=== PATIENT | male | born 1960 | race Caucasian/White ===

== ENCOUNTER 2023-12-18 10:39 | Outpatient (RCR) | payer MEDICARE, MEDICAID, SELFPAY | END 2024-01-13 23:59 | disposition home or self-care (01) | LOC: SCTC 10:39 | PROVIDERS: PCP Nurse Practitioner; Referring Provider Nurse Practitioner; Visit Provider Internal Medicine Hematology & Oncology | DX: C20 Malignant neoplasm of rectum (principal); C78.7 Secondary malignant neoplasm of liver and intrahepatic bile duct; C78.01 Secondary malignant neoplasm of right lung | CPT/HCPCS: 99212; G0463 ==

== ENCOUNTER → 2024-01-22 | Outpatient (CLI) | payer MEDICARE, MEDICAID, SELFPAY ==
[2024-01-22 09:25] LABS: Basophils # (Auto) 0.1 Thou/mm3 (0.0-0.2); Basophils % (Auto) 1 % (0-2.5); Eosinophils # (Auto) 0.4 Thou/mm3 (0.0-0.5); Eosinophils % (Auto) 6 % (0-10); Hematocrit 45.2 % (41.0-53.0); Hemoglobin 15.3 g/dL (13.5-16.0); Immature Granulocytes % (Auto) 0 % (0-0); Immature Granulocytes Auto 0.01 Thou/mm3 (0.00-0.00); Lymphocytes # (Auto) 1.5 Thou/mm3 (1.0-4.8); Lymphocytes % (Auto) 23 % (10-50); Mean Corpuscular HGB Conc 33.8 g/dl (31.0-37.0); Mean Corpuscular Hemoglobin 32.5 pg (25.0-35.0); Mean Corpuscular Volume 96 fL (80-100); Monocytes # (Auto) 0.6 Thou/mm3 (0.0-0.8); Monocytes % (Auto) 9 % (0-12); Neutrophils # (Auto) 3.9 Thou/mm3 (1.8-7.7); Neutrophils % (Auto) 61 % (37-80); Nucleated Red Blood Cell % 0 /100 WBC (0); Platelet Count 193 Thou/mm3 (140-440); RDW Standard Deviation 44.6 fL (35.1-43.9); Red Blood Count 4.71 Miln/mm3 (4.50-5.90); White Blood Count 6.4 Thou/mm3 (3.8-10.6)
[2024-01-22 09:40] LABS: Alanine Aminotransferase 28 U/L (10-49); Albumin, Serum 4.5 gm/dL (3.4-4.8); Alkaline Phosphatase 112 U/L (46-116); Anion Gap 5 (7-16); Aspartate Amino Transferase 20 U/L (0-34); BUN/Creatinine Ratio 13 Ratio (12-20); Bilirubin,Direct 0.4 mg/dL (0.0-0.3); Bilirubin,Total 0.8 mg/dL (0.3-1.2); Blood Urea Nitrogen 17 mg/dL (9-23); Calcium 9.4 mg/dL (8.3-10.6); Carbon Dioxide 26.1 mMol/L (20.0-31.0); Cardiac Risk Estimate 3.2 RATIO (4.0-6.7); Chloride 108 mMol/L (98-107); Cholesterol 97 mg/dL (132-200); Creatinine (Component) 1.3 mg/dL (0.6-1.3); Glucose 122 mg/dL (74-106); HDL Cholesterol 30 mg/dL (40-60); LDL Cholesterol,Calculated 52 mg/dL (0-130); Osmolality,Calculated 280 (275-295); Phosphorous 3.2 mg/dL (2.4-5.1); Potassium 4.8 mMol/L (3.4-5.1); Sodium 139 mMol/L (136-145); Total Protein 6.5 gm/dL (5.7-8.2); Triglycerides 75 mg/dL (30-150); eGFR > 60 See Note
== END | disposition home or self-care (01) ==
LOC: COPL 08:12
PROVIDERS: PCP Family Medicine; Referring Provider Specialist; Visit Provider Specialist
DX: E78.00 Pure hypercholesterolemia, unspecified (principal); I11.9 Hypertensive heart disease without heart failure
CPT/HCPCS: 36415; 80048; 80061; 80076; 84100; 85025

== ENCOUNTER → 2024-03-11 | Outpatient (CLI) | payer MEDICARE, MEDICAID, SELFPAY ==
[2024-03-11 08:48] LABS: Basophils % (Auto) 1 % (0-2.5); Eosinophils # (Auto) 0.4 Thou/mm3 (0.0-0.5); Eosinophils % (Auto) 7 % (0-10); Hematocrit 44.6 % (41.0-53.0); Hemoglobin 15.5 g/dL (13.5-16.0); Immature Granulocytes % (Auto) 0 % (0-0); Immature Granulocytes Auto 0.01 Thou/mm3 (0.00-0.00); Lymphocytes # (Auto) 1.3 Thou/mm3 (1.0-4.8); Lymphocytes % (Auto) 22 % (10-50); Mean Corpuscular HGB Conc 34.8 g/dl (31.0-37.0); Mean Corpuscular Hemoglobin 32.5 pg (25.0-35.0); Mean Corpuscular Volume 94 fL (80-100); Monocytes # (Auto) 0.5 Thou/mm3 (0.0-0.8); Monocytes % (Auto) 9 % (0-12); Neutrophils # (Auto) 3.6 Thou/mm3 (1.8-7.7); Neutrophils % (Auto) 61 % (37-80); Nucleated Red Blood Cell % 0 /100 WBC (0); Platelet Count 187 Thou/mm3 (140-440); RDW Standard Deviation 41.9 fL (35.1-43.9); Red Blood Count 4.77 Miln/mm3 (4.50-5.90); White Blood Count 5.9 Thou/mm3 (3.8-10.6)
[2024-03-11 09:11] LABS: Alanine Aminotransferase 19 U/L (10-49); Albumin, Serum 4.4 gm/dL (3.4-4.8); Albumin/Globulin Ratio 1.9 (1.2-2.2); Alkaline Phosphatase 132 U/L (46-116); Anion Gap 9 (7-16); Aspartate Amino Transferase 14 U/L (0-34); BUN/Creatinine Ratio 8 Ratio (12-20); Bilirubin,Total 1.1 mg/dL (0.3-1.2); Blood Urea Nitrogen 11 mg/dL (9-23); Calcium 9.3 mg/dL (8.3-10.6); Calcium (Corrected) 9.3 mg/dL (8.5-10.1); Carbon Dioxide 26.5 mMol/L (20.0-31.0); Chloride 106 mMol/L (98-107); Creatinine (Component) 1.3 mg/dL (0.6-1.3); Globulin 2.3 gm/dL (2.3-3.5); Glucose 127 mg/dL (74-106); Osmolality,Calculated 282 (275-295); Potassium 4.6 mMol/L (3.4-5.1); Sodium 141 mMol/L (136-145); Total Protein 6.7 gm/dL (5.7-8.2); eGFR > 60 See Note
[2024-03-11 11:25] LABS: Carcinoembryonic Antigen 21.2 ng/mL (0.0-5.0)
== END | disposition home or self-care (01) ==
PROVIDERS: Referring Provider Internal Medicine Hematology & Oncology; Visit Provider Internal Medicine Hematology & Oncology
DX: C20 Malignant neoplasm of rectum (principal)
CPT/HCPCS: 36415; 80053; 82378; 85025

== ENCOUNTER → 2024-03-15 | Outpatient (CLI) | payer MEDICARE, MEDICAID, SELFPAY ==
--- NOTE | 2024-03-15 14:00 | XR_ITS ---
Examination: CT chest with intravenous contrast CT abdomen with intravenous contrast CT pelvis with intravenous contrast 2-D coronal and sagittal reconstructions Time of exam: March 15, 2024 1455 hours Comparison November 08, 2023 INDICATIONS: Diagnosis malignant neoplasm rectum pulmonary nodular metastatic disease on CT examination 11/08/2023 CTDI: vol (mGy) : 20.64 DLP: (mGycm): 945 Technique: Multiple axial images of the chest, abdomen and pelvis with intravenous contrast, 3.0 mm slice thickness. Images obtained post intravenous injection Isovue 370 60 cc. 2-D sagittal and coronal reconstructions. Low dose protocols were performed. One or more of the following dose reduction techniques were used; automated exposure control, adjustment of the mA and/or KV according to patient size, use of iterative reconstruction technique. Findings: No thoracic aortic aneurysmal dilatation No paratracheal tracheobronchial or bronchopulmonary adenopathy bilateral pulmonary nodules again noted Enlarging metastatic pulmonary nodule left lower lobe, with spiculated margins, currently 21 mm compared to 13 mm on the prior study Enlarging right lower lobe pulmonary nodule, spiculated margins, measuring 19 mm compared to 13 mm on the prior study No definite liver lesions Spleen not enlarged Contracted gallbladder No pancreatic or adrenal mass Moderate bilateral renal parenchymal scar formation Aorta normal size No interval abdominal or pelvic lymphadenopathy No pericecal inflammatory change No prostatomegaly Contracted urinary bladder Moderate osteopenia IMPRESSION: Progression of pulmonary nodular metastatic disease
== END | disposition home or self-care (01) ==
PROVIDERS: PCP Nurse Practitioner; Referring Provider Internal Medicine Hematology & Oncology; Visit Provider Internal Medicine Hematology & Oncology
DX: C78.00 Secondary malignant neoplasm of unspecified lung (principal); C20 Malignant neoplasm of rectum
CPT/HCPCS: 71260; 74177; A4649; Q9967

== ENCOUNTER 2024-04-29 08:44 | Outpatient (RCR) | payer MEDICARE, MEDICAID, SELFPAY ==
--- NOTE | 2024-04-16 14:53 | CTCFLWUP_ITS ---
Patient: ARLEN VALDOVINOS : 1960 Page 2 of 2 FOLLOW UP NOTE DATE OF SERVICE: 04/16/2024 NAME: ARLEN VALDOVINOS ACCOUNT: [id number] : 1960 AGE: 63 INTERVAL HISTORY: Doing well. ONCOLOGY HISTORY: DIAGNOSIS: Malignant neoplasm of rectum [ICD10] C20 DATE OF DIAGNOSIS: 08/03/2017 STAGE/TNM: Stage 4 TREATMENT HISTORY: Care?Plan Start?Date Cycle Day Intent mFOLFOX-6?+?Bevacizumab?5?mg/kg 01/22/2018 1 14 Palliative FOLFIRI?+?Bevacizumab?5mg/kg 11/17/2021 2 14 Palliative Bevacizumab?5mg/kg 01/03/2022 1 28 Palliative Cetux+Irinotecan 11/28/2022 1 14 Palliative Cetux+?Irinotecan 12/08/2022 1 14 Palliative?(other) HISTORY OF PRESENT ILLNESS: Arlen Valdovinos is a 63-year-old male with history of hypertension has been having rectal bleeding for last few months. 08/03/2017: Patient had a colonoscopy which showed a rectal mass. Biopsies taken from this mass showed moderately differentiated adenocarcinoma. 09/20/2017: Patient was seen by Dr. Rui Solorzano who performed a rectosigmoidectomy and coloproctostomy. Surgical pathology specimen showed 4.1 cm moderately to poorly differentiated invasive adenocarcinoma invading through the muscularis propria into pericolonic fat. Tumor is localized to the rectum. Perineural invasion was identified. Lymphovascular invasion was negative. 1 out of 15 lymph nodes were positive for metastatic disease with large deposit measuring 8 mm in size. MMR testing showed intact proteins. His postoperative course was uneventful. 11/16/2017: Patient is in the clinic today for initial consultation. CEA 29.2. PET CT scan requested. 12/08/2017: Patient had PET CT scan done which showed a 12 mm hypermetabolic focus in the right lobe of the liver with an SUV of 4.68. 12/13/2017: CT scan of the chest abdomen and pelvis with IV contrast was obtained which showed multiple small bilateral noncalcified pulmonary nodules worrisome for pulmonary metastatic nodular disease as well as a 21 mm ringlike enhancing lesion corresponding to the hypermetabolic poor focus noted on the PET CT scan and 4 small solid right lobe liver lesions consistent with hepatic metastasis is also noted. 01/12/2018: Ultrasound-guided biopsy of the liver lesion? Arlen Valdovinos is a 63-year-old male with history of hypertension has been having rectal bleeding for last few months. 08/03/2017: Patient had a colonoscopy which showed a rectal mass. Biopsies taken from this mass showed moderately differentiated adenocarcinoma. 09/20/2017: Patient was seen by Dr. Rui Solorzano who performed a rectosigmoidectomy and coloproctostomy. Surgical pathology specimen showed 4.1 cm moderately to poorly differentiated invasive adenocarcinoma invading through the muscularis propria into pericolonic fat. Tumor is localized to the rectum. Perineural invasion was identified. Lymphovascular invasion was negative. 1 out of 15 lymph nodes were positive for metastatic disease with large deposit measuring 8 mm in size. MMR testing showed intact proteins. His postoperative course was uneventful. 11/16/2017: Patient is in the clinic today for initial consultation. CEA 29.2. PET CT scan requested. 12/08/2017: Patient had PET CT scan done which showed a 12 mm hypermetabolic focus in the right lobe of the liver with an SUV of 4.68. 12/13/2017: CT scan of the chest abdomen and pelvis with IV contrast was obtained which showed multiple small bilateral noncalcified pulmonary nodules worrisome for pulmonary metastatic nodular disease as well as a 21 mm ringlike enhancing lesion corresponding to the hypermetabolic poor focus noted on the PET CT scan and 4 small solid right lobe liver lesions consistent with hepatic metastasis is also noted. 01/12/2018: Ultrasound-guided biopsy of the liver lesion- 01/22/2018-07/16/2018: Patient received 11 doses (cycle 5-day 1) FOLFOX plus Avastin. 08/04/2018: PET CT scan-negative for metastatic disease 02/07/2018: CEA 40.9 09/04/2018 CEA 0.6 09/10/2018: Patient is started on maintenance capecitabine 2 g in the morning and 1.5 grams in the evening on days 1 through 14 followed by 7 days rest. 05/22/2019: CEA less than 0.5. 06/14/2019: PET CT scan-negative for metastatic disease. 11/09/2019: PET CT scan- 11/18/2019: CT scan of the chest, abdomen and pelvis with IV contrast- 06/17/2020: CEA 0.8. 07/08/2020: CT scan of the chest, abdomen and pelvis with IV contrast- 09/30/2020: Mr. Valdovinos had acute anterior myocardial infarction. He had stent angioplasty of LAD done. Patient stopped taking capecitabine. 01/01/2022: CT scan of the chest abdomen and pelvis with IV contrast- 04/22/2021: CT scan of the chest abdomen and pelvis with IV contrast 11/01/21: CEA 1.4 11/22/2021: CT scan of the chest abdomen and pelvis with IV contrast 12/13/2021: Patient received cycle 1 day 1 of FOLFIRI and bevacizumab. Unfortunately he had significant nausea lasting for more than 1 week. He also had palpitations. He is ICD was activated twice. 02/07/2022: Mr. Valdovinos is started on Lonsurf and bevacizumab. 11/21/2022: CT scan of the chest abdomen and pelvis with IV contrast- 11/28/2022: Lonsurf and bevacizumab discontinued due to progression. 12/08/2022: Patient received first dose of Camptosar. Unfortunately he developed severe diarrhea a few days later requiring him to be admitted to the hospital for dehydration. Patient received IV fluids as well as Lomotil during the hospital stay. 01/11/2023: Lonsurf restarted at patient's request. Mr. Valdovinos stated that he did not follow the instructions on Lonsurf prescription properly in the past. 04/11/2023: CT scan of the chest abdomen pelvis with IV contrast- 07/19/2023: CT scan of the chest abdomen and pelvis with IV contrast 01/22/2018?07/16/2018: Patient received 11 doses (cycle 5-day 1) FOLFOX plus Avastin. 08/04/2018: PET CT scan?negative for metastatic disease 02/07/2018: CEA 40.9 09/04/2018 CEA 0.6 09/10/2018: Patient is started on maintenance capecitabine 2 g in the morning and 1.5 grams in the evening on days 1 through 14 followed by 7 days rest. 05/22/2019: CEA less than 0.5. 06/14/2019: PET CT scan?negative for metastatic disease. 11/09/2019: PET CT scan? 11/18/2019: CT scan of the chest, abdomen and pelvis with IV contrast? 06/17/2020: CEA 0.8. 07/08/2020: CT scan of the chest, abdomen and pelvis with IV contrast? 09/30/2020: Mr. Valdovinos had acute anterior myocardial infarction. He had stent angioplasty of LAD done. Patient stopped taking capecitabine. 01/01/2022: CT scan of the chest abdomen and pelvis with IV contrast? 04/22/2021: CT scan of the chest abdomen and pelvis with IV contrast 11/01/21: CEA 1.4 11/22/2021: CT scan of the chest abdomen and pelvis with IV contrast 12/13/2021: Patient received cycle 1 day 1 of FOLFIRI and bevacizumab. Unfortunately he had significant nausea lasting for more than 1 week. He also had palpitations. He is ICD was activated twice. 02/07/2022: Mr. Valdovinos is started on Lonsurf and bevacizumab. 11/21/2022: CT scan of the chest abdomen and pelvis with IV contrast? 11/28/2022: Lonsurf and bevacizumab discontinued due to progression. 12/08/2022: Patient received first dose of Camptosar. Unfortunately he developed severe diarrhea a few days later requiring him to be admitted to the hospital for dehydration. Patient received IV fluids as well as Lomotil during the hospital stay. 01/11/2023: Lonsurf restarted at patient's request. Mr. Valdovinos stated that he did not follow the instructions on Lonsurf prescription properly in the past. 04/11/2023: CT scan of the chest abdomen pelvis with IV contrast? 07/19/2023: CT scan of the chest abdomen and pelvis with IV contrast OTHER MEDICAL HISTORY/CONDITIONS: FAMILY HISTORY: ?Clone Family Hx? SOCIAL HISTORY: MEDICATIONS: 1. aspirin - 81 mg 1 tab Every other day 2. atorvastatin - 80 mg 1 tab Daily 3. Brilinta - 60 mg 1 tab Twice a Day 4. carvedilol - 6.25 mg 1 tab Twice a Day 5. Entresto - 49-51 mg 1 tab Twice a Day 6. ezetimibe - 10 mg 1 tab Daily?Palabra Meds? Medications Last Reconciled by Irlanda Gonzalez MA on 04/16/2024 ALLERGIES: No Known Drug Allergies REVIEW OF SYSTEMS: A complete 14-point review of systems was performed and is negative except as noted in interval history. PHYSICAL EXAMINATION: VITAL SIGNS: Temperature?97.8, B/P?118/79, Oxygen?Saturation?97% Weight?205?lbs PAIN: 0 - No pain ECOG Performance Status: 1 - Symptomatic; ambulatory; restricted in strenuous activity GENERAL APPEARANCE: Appears well, in no apparent distress, appropriately interactive. HEENT: Normocephalic, no temporal wasting, normal conjunctiva, no scleral icterus, normal hearing, lips without lesions, neck normal range of motion. CARDIOVASCULAR: Not assessed. PULMONARY: Normal respiratory effort, no respiratory distress or use of accessory muscles, speaking in full sentences, no tachypnea. EXTREMITIES: No pedal edema or cyanosis. SKIN: Normal skin appearance. NEUROLOGIC: Alert and oriented x4. PSHYCHIATRIC: Appropriate affect, mood normal, behavior normal, intact thought and speech. 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 N-SOSA mutation positive, B-Giacomo mutation positive, PDL 1 expression negative and normal MMR protein expression by IHC Recent CT scan of the chest abdomen pelvis showed progression of his disease as documented above. The patient continues to remain asymptomatic without any cough, shortness of breath or chest pain. His cancer has progressed on Lonsurf. Lonsurf was restarted on 01/11/2023 Patient received one cycle of Camptosar. He denies any further diarrhea. He still has mild loss of taste. Mr. Valdovinos is stating now that he has missed multiple doses many times of the Lonsurf. He does not Patient had first dose of Camptosar on 12/08/2022. Mr. Valdovinos decided not to take cetuximab due to side effects. Unfortunately he developed severe diarrhea few days later. He was admitted to the hospital because of dehydration. Recent CT scan of the CAP- showed progression of his pulmonary metastatic disease. Tolerating Lonsurf and bevacizumab well without any significant side effects. Unable to tolerate FOLFIRI plus bevacizumab. (12/13/2021) which caused significant nausea, palpitations. It also caused the ICD to be activated twice. He had pacemaker/defibrillator placed January 11, 2021 the patient had acute myocardial infarction as described above requiring to have stent angioplasty of LAD on 09/30/2020. He stopped taking capecitabine after the MT. . He is concerned with his heart condition also. Currently he is being followed by Dr. Coughlin of [place]. I will try to get notes from Dr. Coughlin. -CT scan shows progression in the size of lung nodules -Patient do not want chemotherapy -Will offer radiation therapy-SBRT to the lung nodules Referral placed to radiation oncology Continue to follow with a CBC CMP CEA CBC CMP CEA RETURN TO CLINIC: I will see him back in the clinic in 2 months. BILLING AND COMPLIANCE: I reviewed external records from providers outside my specialty as summarized above. I spent a total of 50 minutes on this patient?s care on the day of their visit excluding time spent related to any billed procedures. This time includes time spent with the patient as well as time spent documenting in the medical record, reviewing patients records and tests, obtaining history, placing orders, communicating with other healthcare professionals, counseling the patient, family or caregiver, and/or care coordination for the diagnoses above. Electronically Signed by: Enzo Nowak MD T: 2:51 PM CC: Rui?Rashad? PCP: Rosa Isela Randolph V Referring: Rosa Isela Randolph V This document was completed utilizing speech recognition software. Grammatical errors, random word insertions, pronoun errors, and incomplete sentences are an occasional consequence of this system due to software limitations, ambient noise, and hardware issues. Any formal questions or concerns about the content, text or information contained within the body of this dictation should be directly addressed to the provider for clarification.
== END 2024-05-13 23:59 | disposition home or self-care (01) ==
LOC: SCTC 08:44
PROVIDERS: PCP Nurse Practitioner; Referring Provider Nurse Practitioner; Visit Provider Radiology Therapeutic Radiology
DX: C20 Malignant neoplasm of rectum (principal); C78.7 Secondary malignant neoplasm of liver and intrahepatic bile duct; C78.01 Secondary malignant neoplasm of right lung; C78.02 Secondary malignant neoplasm of left lung
CPT/HCPCS: 77014; 77290; 77300; 77301; 77334; 77338; 99212; 99213; G0463

== ENCOUNTER → 2024-05-01 | Outpatient (CLI) | payer MEDICARE, MEDICAID, SELFPAY ==
--- NOTE | 2024-05-01 13:30 | ECHO_ITS ---
Transthoracic Echo Report Ht (in): 67 Wt (lb): 205 Exam Location: Echo Lab Status: Preadmit Laundry Agent: MARCOS Webber^^^^ Indications: Procedure Performed: BP: 124 / 74 HR: 98 Rhythm: Other Technical Quality: Fair MEASUREMENTS (Male / Female) Normal Values 2D ECHO LV Diastolic Diameter PLAX 3.9 cm 4.2 - 5.9 / 3.9 - 5.3 cm LV Systolic Diameter PLAX 3.1 cm IVS Diastolic Thickness 1.3 cm 0.6 - 1.0 / 0.6 - 0.9 cm LVPW Diastolic Thickness 0.9 cm 0.6 - 1.0 / 0.6 - 0.9 cm LV Relative Wall Thickness 0.6 LVOT Diameter 1.6 cm Aortic Root Diameter 3.3 cm LA Systolic Diameter LX 2.9 cm 3.0 - 4.0 / 2.7 - 3.8 cm LV Ejection Fraction MOD BP 47.7 % >= 55 % LV Cardiac Index MOD BP 2091.0 cm?/min?m? LV Ejection Fraction MOD 4C 46.4 % LV Cardiac Index MOD 4C 2671.4 cm?/min?m? LV Ejection Fraction 4C AL 48.8 % LV Cardiac Index 4C AL 2912.1 cm?/min?m? LV Ejection Fraction MOD 2C 52.2 % LV Cardiac Index MOD 2C 1750.2 cm?/min?m? LV Ejection Fraction 2C AL 53.8 % LV Cardiac Index 2C AL 1809.5 cm?/min?m? LA Volume Index 15.1 cm?/m? 16 - 28 cm?/m? Ascending Aorta Diameter 3.5 cm DOPPLER AV Peak Velocity 124.5 cm/s AV Peak Gradient 6.2 mmHg AV Mean Gradient 5.0 mmHg AV Velocity Time Integral 31.9 cm AI Peak Velocity 236.0 cm/s AI Peak Gradient 22.3 mmHg AI Pressure Half Time 334.0 ms LVOT Peak Velocity 129.0 cm/s LVOT Peak Gradient 6.7 mmHg LVOT Velocity Time Integral 27.2 cm LVOT Cardiac Index 2518.9 cm?/min?m? AV Area Cont Eq vti 1.7 cm? AV Area Cont Eq pk 2.1 cm? MV Area PHT 3.5 cm? Mitral E Point Velocity 61.4 cm/s Mitral A Point Velocity 84.6 cm/s Mitral E to A Ratio 0.7 LV E' Lateral Velocity 6.9 cm/s Mitral E to LV E' Lateral Ratio 8.9 LV E' Septal Velocity 7.3 cm/s Mitral E to LV E' Septal Ratio 8.4 PV Peak Velocity 88.9 cm/s PV Peak Gradient 3.2 mmHg RVOT Peak Velocity 60.6 cm/s FINDINGS Left Ventricle The left ventricular ejection fraction is mildly decreased, estimated at 45- 50%. There is grade I diastolic dysfunction of the left ventricle (impaired relaxation pattern). Right Ventricle The right ventricle is normal in size and systolic function. The estimated right ventricular systolic pressure, 20 mmHg. Left Atrium The left atrium is normal by two-dimensional, color flow and Doppler imaging with no structural abnormalities, no thrombus formation present. Right Atrium The right atrium is normal by two-dimensional imaging, color flow and Doppler imaging with no structural abnormalities, no thrombus formation present. Atrial Septum The interatrial septum appears normal with no evidence of a shunt. Aorta The aorta is normal by two-dimensional, color flow and Doppler interrogation. Mitral Valve Trace to mild mitral regurgitation. Mild mitral annular calcification. Aortic Valve Findings consistent with vegetation on the aortic valve. Trace to mild aortic valve regurgitation. Tricuspid Valve There is trace tricuspid valve regurgitation. Pulmonic Valve The pulmonic valve is not well visualized. There is no significant pulmonic valve regurgitation. Vessels The pulmonary artery appears normal. The inferior vena cava pulmonary and hepatic veins appear normal. Pericardium The pericardium is normal by two-dimensional imaging. There is no significant pericardial effusion. CONCLUSIONS Indication: Malignancy/neoplasm Normal LV size with mildly reduced LV systolic function with an EF of around 45-50 %. Diastolic dysfunction stage I. Normal RV size and function. Normal RV size and function. Estimated RVSP normal. Trace TR Mild MAC with mild MR. Mild aortic valve sclerosis without stenosis. No evidence of any pericardial effusion Graham Reavesumanuma (Electronically Signed) Final Date: 02 May 2024 00:44
== END | disposition home or self-care (01) ==
LOC: SDIM 13:02
PROVIDERS: Referring Provider Internal Medicine Hematology & Oncology; Visit Provider Internal Medicine Hematology & Oncology
DX: I08.3 Combined rheumatic disorders of mitral, aortic and tricuspid valves (principal); I50.30 Unspecified diastolic (congestive) heart failure; C20 Malignant neoplasm of rectum
CPT/HCPCS: 93306

== ENCOUNTER 2024-06-11 13:31 | Outpatient (RCR) | payer MEDICARE, MEDICAID, SELFPAY ==
--- NOTE | 2024-05-15 06:59 | CTCSNOTE_ITS ---
[facility] [address] [place], [place] [address] Simple Simulation Note Date: 05/14/2024 MR#: [id number] Name: ARLEN VALDOVINOS : 1960 Port was taken and the field size location and blocks were checked. ( (B) The following changes were made as noted. ITV was enlarged sup and inf to accommodate the moving target. Electronically signed by: Varinder Dixon MD, LIONELR 05/15/2024 6:57 AM
== END 2024-06-12 23:59 | disposition home or self-care (01) ==
LOC: SCTC 13:31
PROVIDERS: PCP Nurse Practitioner; Referring Provider Radiology Therapeutic Radiology; Visit Provider Radiology Therapeutic Radiology
DX: Z51.0 Encounter for antineoplastic radiation therapy (principal); C20 Malignant neoplasm of rectum; C78.7 Secondary malignant neoplasm of liver and intrahepatic bile duct; C78.02 Secondary malignant neoplasm of left lung; C78.01 Secondary malignant neoplasm of right lung; Z90.49 Acquired absence of other specified parts of digestive tract
CPT/HCPCS: 77373

== ENCOUNTER 2024-07-10 09:16 | Outpatient (RCR) | payer MEDICARE, MEDICAID, SELFPAY ==
--- NOTE | 2024-06-17 14:37 | CTCTRTNOTE_ITS ---
[facility] [address] [place], [place] [address] Weekly Management Date: 06/17/2024 ?? Name: ARLEN VALDOVINOS : 1960 A. Patient is currently at 3420 cGy. To left lower lobe. Already completed 5123 to the right lower lobe. Appears to have no significant side effects. B. Resume radiation therapy. Completes XRT next week. Electronically signed by: Varinder Dixon M.D. 06/17/2024 2:34 PM
[2024-06-17 15:59] LABS: Basophils % (Auto) 1 % (0-2.5); Eosinophils # (Auto) 0.3 Thou/mm3 (0.0-0.5); Eosinophils % (Auto) 6 % (0-10); Hematocrit 38.1 % (41.0-53.0); Immature Granulocytes % (Auto) 0 % (0-0); Immature Granulocytes Auto 0.01 Thou/mm3 (0.00-0.00); Lymphocytes # (Auto) 0.8 Thou/mm3 (1.0-4.8); Lymphocytes % (Auto) 15 % (10-50); Mean Corpuscular HGB Conc 36.7 g/dl (31.0-37.0); Mean Corpuscular Hemoglobin 32.9 pg (25.0-35.0); Mean Corpuscular Volume 89 fL (80-100); Monocytes # (Auto) 0.5 Thou/mm3 (0.0-0.8); Monocytes % (Auto) 10 % (0-12); Neutrophils # (Auto) 3.4 Thou/mm3 (1.8-7.7); Neutrophils % (Auto) 67 % (37-80); Nucleated Red Blood Cell % 0 /100 WBC (0); Platelet Count 172 Thou/mm3 (140-440); RDW Standard Deviation 41.8 fL (35.1-43.9); Red Blood Count 4.26 Miln/mm3 (4.50-5.90); White Blood Count 5.1 Thou/mm3 (3.8-10.6)
[2024-06-17 16:19] LABS: Alanine Aminotransferase 17 U/L (10-49); Albumin/Globulin Ratio 1.7 (1.2-2.2); Alkaline Phosphatase 112 U/L (46-116); Anion Gap 10 (7-16); Aspartate Amino Transferase 20 U/L (0-34); BUN/Creatinine Ratio 14 Ratio (12-20); Bilirubin,Total 1.6 mg/dL (0.3-1.2); Blood Urea Nitrogen 14 mg/dL (9-23); Calcium 8.3 mg/dL (8.3-10.6); Calcium (Corrected) 8.3 mg/dL (8.5-10.1); Carbon Dioxide 24.4 mMol/L (20.0-31.0); Carcinoembryonic Antigen 55.9 ng/mL (0.0-5.0); Chloride 107 mMol/L (98-107); Globulin 2.4 gm/dL (2.3-3.5); Glucose 89 mg/dL (74-106); Osmolality,Calculated 280 (275-295); Potassium 3.7 mMol/L (3.4-5.1); Sodium 141 mMol/L (136-145); Total Protein 6.4 gm/dL (5.7-8.2); eGFR > 60 See Note
--- NOTE | 2024-06-19 13:06 | CTCFLWUP_ITS ---
Patient: ARLEN VALDOVINOS : 1960 Page 2 of 2 FOLLOW UP NOTE DATE OF SERVICE: 06/18/2024 NAME: ARLEN VALDOVINOS ACCOUNT: [id number] : 1960 AGE: 63 INTERVAL HISTORY: Arlen Valdovinos, a patient with metastatic lung cancer, presented with concern about progression of multiple pulmonary nodules and decreased heart function (45-50%). History includes a Widowmaker heart attack following chemotherapy with capecitabine. CT scan confirmed nodule progression with CEA rising from 21 to 55 since February. Patient has completed SBRT radiation on right lung nodules and two on the left, with one treatment remaining. Plan includes completing radiation, ordering Jose blood test and next-generation sequencing, referral to [facility] for second opinion, and considering immunotherapy pending further evaluation. Chief Complaint Progression of multiple pulmonary nodules, decreased heart function (45-50%), concern about cancer growth History of Present Illness Arlen Valdovinos is a patient with a history of lung cancer who presents for follow-up. The patient has been undergoing radiation therapy for multiple pulmonary nodules. The patient reports completing radiation therapy on the right side of the lungs and has two treatments completed on the left side, with one more treatment remaining. The radiation therapy is being administered over three fractions, with each treatment taking place over a two-week period. Arlen expresses concern about their heart function, which has decreased to 45-50 percent. Arlen's cancer markers have shown an increase, with CEA rising from 21 in February to 55 currently, indicating potential disease progression. The patient previously experienced a severe cardiac event, described as a Widowmaker heart attack, following chemotherapy treatment. This has made Arlen apprehensive about further chemotherapy, stating, I don't wanna go through no heart attack again. The patient reports adherence to the current radiation therapy regimen but expresses concerns about the effectiveness of radiation alone in treating their cancer. Arlen is open to exploring alternative treatment options, including the possibility of immunotherapy, but is worried about potential cardiac side effects. Medical History - Multiple pulmonary nodules, with progression noted on recent CT scan - Heart function decreased to 45-50% - History of myocardial infarction (referred to as Widowmaker ) - History of cardiac arrest requiring resuscitation twice during the myocardial infarction event Surgical History - Myocardial infarction ( Widowmaker ) requiring cardiac resuscitation twice - Angioplasty Medications and Supplements - Capecitabine - Discontinued due to myasophobia angioplasty Laboratory, Imaging, and Diagnostic Test Results - CT scan: Progression of multiple pulmonary nodules - Heart function: Decreased to 45-50% - CEA (cancer marker): - Current: 55 - Previous: (February 2024) - Hemoglobin: Normal (specific value not provided) Review of Systems Cardiovascular: Negative for chest pain. Respiratory: Positive for lung nodules. ONCOLOGY HISTORY: DIAGNOSIS: Malignant neoplasm of rectum [ICD10] C20 DATE OF DIAGNOSIS: 08/03/2017 STAGE/TNM: Stage 4 TREATMENT HISTORY: Care?Plan Start?Date Cycle Day Intent mFOLFOX-6?+?Bevacizumab?5?mg/kg 01/22/2018 1 14 Palliative FOLFIRI?+?Bevacizumab?5mg/kg 11/17/2021 2 14 Palliative Bevacizumab?5mg/kg 01/03/2022 1 28 Palliative Cetux+Irinotecan 11/28/2022 1 14 Palliative Cetux+?Irinotecan 12/08/2022 1 14 Palliative?(other) HISTORY OF PRESENT ILLNESS: Arlen Valdovinos is a 63-year-old male with history of hypertension has been having rectal bleeding for last few months. 08/03/2017: Patient had a colonoscopy which showed a rectal mass. Biopsies taken from this mass showed moderately differentiated adenocarcinoma. 09/20/2017: Patient was seen by Dr. Rui Solorzano who performed a rectosigmoidectomy and coloproctostomy. Surgical pathology specimen showed 4.1 cm moderately to poorly differentiated invasive adenocarcinoma invading through the muscularis propria into pericolonic fat. Tumor is localized to the rectum. Perineural invasion was identified. Lymphovascular invasion was negative. 1 out of 15 lymph nodes were positive for metastatic disease with large deposit measuring 8 mm in size. MMR testing showed intact proteins. His postoperative course was uneventful. 11/16/2017: Patient is in the clinic today for initial consultation. CEA 29.2. PET CT scan requested. 12/08/2017: Patient had PET CT scan done which showed a 12 mm hypermetabolic focus in the right lobe of the liver with an SUV of 4.68. 12/13/2017: CT scan of the chest abdomen and pelvis with IV contrast was obtained which showed multiple small bilateral noncalcified pulmonary nodules worrisome for pulmonary metastatic nodular disease as well as a 21 mm ringlike enhancing lesion corresponding to the hypermetabolic poor focus noted on the PET CT scan and 4 small solid right lobe liver lesions consistent with hepatic metastasis is also noted. 01/12/2018: Ultrasound-guided biopsy of the liver lesion? Arlen Valdovinos is a 63-year-old male with history of hypertension has been having rectal bleeding for last few months. 08/03/2017: Patient had a colonoscopy which showed a rectal mass. Biopsies taken from this mass showed moderately differentiated adenocarcinoma. 09/20/2017: Patient was seen by Dr. Rui Solorzano who performed a rectosigmoidectomy and coloproctostomy. Surgical pathology specimen showed 4.1 cm moderately to poorly differentiated invasive adenocarcinoma invading through the muscularis propria into pericolonic fat. Tumor is localized to the rectum. Perineural invasion was identified. Lymphovascular invasion was negative. 1 out of 15 lymph nodes were positive for metastatic disease with large deposit measuring 8 mm in size. MMR testing showed intact proteins. His postoperative course was uneventful. 11/16/2017: Patient is in the clinic today for initial consultation. CEA 29.2. PET CT scan requested. 12/08/2017: Patient had PET CT scan done which showed a 12 mm hypermetabolic focus in the right lobe of the liver with an SUV of 4.68. 12/13/2017: CT scan of the chest abdomen and pelvis with IV contrast was obtained which showed multiple small bilateral noncalcified pulmonary nodules worrisome for pulmonary metastatic nodular disease as well as a 21 mm ringlike enhancing lesion corresponding to the hypermetabolic poor focus noted on the PET CT scan and 4 small solid right lobe liver lesions consistent with hepatic metastasis is also noted. 01/12/2018: Ultrasound-guided biopsy of the liver lesion- 01/22/2018-07/16/2018: Patient received 11 doses (cycle 5-day 1) FOLFOX plus Avastin. 08/04/2018: PET CT scan-negative for metastatic disease 02/07/2018: CEA 40.9 09/04/2018 CEA 0.6 09/10/2018: Patient is started on maintenance capecitabine 2 g in the morning and 1.5 grams in the evening on days 1 through 14 followed by 7 days rest. 05/22/2019: CEA less than 0.5. 06/14/2019: PET CT scan-negative for metastatic disease. 11/09/2019: PET CT scan- 11/18/2019: CT scan of the chest, abdomen and pelvis with IV contrast- 06/17/2020: CEA 0.8. 07/08/2020: CT scan of the chest, abdomen and pelvis with IV contrast- 09/30/2020: Mr. Valdovinos had acute anterior myocardial infarction. He had stent angioplasty of LAD done. Patient stopped taking capecitabine. 01/01/2022: CT scan of the chest abdomen and pelvis with IV contrast- 04/22/2021: CT scan of the chest abdomen and pelvis with IV contrast 11/01/21: CEA 1.4 11/22/2021: CT scan of the chest abdomen and pelvis with IV contrast 12/13/2021: Patient received cycle 1 day 1 of FOLFIRI and bevacizumab. Unfortunately he had significant nausea lasting for more than 1 week. He also had palpitations. He is ICD was activated twice. 02/07/2022: Mr. Valdovinos is started on Lonsurf and bevacizumab. 11/21/2022: CT scan of the chest abdomen and pelvis with IV contrast- 11/28/2022: Lonsurf and bevacizumab discontinued due to progression. 12/08/2022: Patient received first dose of Camptosar. Unfortunately he developed severe diarrhea a few days later requiring him to be admitted to the hospital for dehydration. Patient received IV fluids as well as Lomotil during the hospital stay. 01/11/2023: Lonsurf restarted at patient's request. Mr. Valdovinos stated that he did not follow the instructions on Lonsurf prescription properly in the past. 04/11/2023: CT scan of the chest abdomen pelvis with IV contrast- 07/19/2023: CT scan of the chest abdomen and pelvis with IV contrast 01/22/2018?07/16/2018: Patient received 11 doses (cycle 5-day 1) FOLFOX plus Avastin. 08/04/2018: PET CT scan?negative for metastatic disease 02/07/2018: CEA 40.9 09/04/2018 CEA 0.6 09/10/2018: Patient is started on maintenance capecitabine 2 g in the morning and 1.5 grams in the evening on days 1 through 14 followed by 7 days rest. 05/22/2019: CEA less than 0.5. 06/14/2019: PET CT scan?negative for metastatic disease. 11/09/2019: PET CT scan? 11/18/2019: CT scan of the chest, abdomen and pelvis with IV contrast? 06/17/2020: CEA 0.8. 07/08/2020: CT scan of the chest, abdomen and pelvis with IV contrast? 09/30/2020: Mr. Valdovinos had acute anterior myocardial infarction. He had stent angioplasty of LAD done. Patient stopped taking capecitabine. 01/01/2022: CT scan of the chest abdomen and pelvis with IV contrast? 04/22/2021: CT scan of the chest abdomen and pelvis with IV contrast 11/01/21: CEA 1.4 11/22/2021: CT scan of the chest abdomen and pelvis with IV contrast 12/13/2021: Patient received cycle 1 day 1 of FOLFIRI and bevacizumab. Unfortunately he had significant nausea lasting for more than 1 week. He also had palpitations. He is ICD was activated twice. 02/07/2022: Mr. Valdovinos is started on Lonsurf and bevacizumab. 11/21/2022: CT scan of the chest abdomen and pelvis with IV contrast? 11/28/2022: Lonsurf and bevacizumab discontinued due to progression. 12/08/2022: Patient received first dose of Camptosar. Unfortunately he developed severe diarrhea a few days later requiring him to be admitted to the hospital for dehydration. Patient received IV fluids as well as Lomotil during the hospital stay. 01/11/2023: Lonsurf restarted at patient's request. Mr. Valdovinos stated that he did not follow the instructions on Lonsurf prescription properly in the past. 04/11/2023: CT scan of the chest abdomen pelvis with IV contrast? 07/19/2023: CT scan of the chest abdomen and pelvis with IV contrast OTHER MEDICAL HISTORY/CONDITIONS: FAMILY HISTORY: SOCIAL HISTORY: MEDICATIONS: 1. aspirin - 81 mg 1 tab Every other day 2. atorvastatin - 80 mg 1 tab Daily 3. Brilinta - 60 mg 1 tab Twice a Day 4. carvedilol - 6.25 mg 1 tab Twice a Day 5. Entresto - 49-51 mg 1 tab Twice a Day 6. ezetimibe - 10 mg 1 tab Daily Medications Last Reconciled by Irlanda Gonzalez MA on 06/18/2024 ALLERGIES: No Known Drug Allergies REVIEW OF SYSTEMS: A complete 14-point review of systems was performed and is negative except as noted in interval history. PHYSICAL EXAMINATION: VITAL SIGNS: Temperature?98.2, B/P?117/81, Oxygen?Saturation?93% Weight?197?lbs (Change?since?06/17/24:?-0.2?lbs) PAIN: 0 - No pain ECOG Performance Status: 0 - Asymptomatic and fully active GENERAL APPEARANCE: Appears well, in no apparent distress, appropriately interactive. HEENT: Normocephalic, no temporal wasting, normal conjunctiva, no scleral icterus, normal hearing, lips without lesions, neck normal range of motion. CARDIOVASCULAR: Not assessed. PULMONARY: Normal respiratory effort, no respiratory distress or use of accessory muscles, speaking in full sentences, no tachypnea. EXTREMITIES: No pedal edema or cyanosis. SKIN: Normal skin appearance. NEUROLOGIC: Alert and oriented x4. PSHYCHIATRIC: Appropriate affect, mood normal, behavior normal, intact thought and speech. LABORATORY DATA: I have personally reviewed and interpreted each of the patient?s relevant lab tests, abnormal findings are below: Date 03/11/24 06/17/24 ??WHITE?BLOOD?COUNT?(Thou/mm3) 5.9 5.1 ??RED?BLOOD?COUNT?(Miln/mm3) 4.77 4.26?L ??HEMOGLOBIN?(gm/dl) 15.5 14.0 ??HEMATOCRIT?(%) 44.6 38.1?L ??PLATELET?COUNT?(Thou/mm3) 187 172 ??NEUTROPHILS?%,?AUTO?(%) 61 67 ??LYMPH?%,?AUTO?(%) 22 15 ??NEUTROPHILS,?AUTO?(Thou/mm3) 3.6 3.4 ??GLUCOSE,RANDOM?(mg/dL) ? 89 ??BLOOD?UREA?NITROGEN?(mg/dL) ? 14 ??CREATININE?(mg/dL) ? 1.00 ??SODIUM?(mmol/L) ? 141 ??POTASSIUM?(mmol/L) ? 3.7 ??CHLORIDE?(mmol/L) ? 107 ??CrCl?(CandG)?(ml/min) ? 80.33 ??AST/SGOT?(Unit/L) ? 20 ??ALT/SGPT?(Unit/L) ? 17 ??ALKALINE?PHOSPHATASE?(Unit/L) ? 112 ??BILIRUBIN,?TOTAL?(mg/dL) ? 1.6?H ??PROTEIN?TOTAL?(gm/dl) ? 6.4 ??ALBUMIN,?SERUM?(gm/dl) ? 4.0 ??GLOBULIN?(gm/dl) ? 2.4 ??ALBUMIN/GLOBULIN?RATIO ? 1.7 ??CALCIUM,?SERUM?(mg/dL) ? 8.3 ??CALCIUM?SERUM?(CORRECTED)?(mg/dL) ? 8.3?L ??CEA?(O*)?(ng/ml) ? 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 N-SOSA mutation positive, B-Giacomo mutation positive, PDL 1 expression negative and normal MMR protein expression by IHC Recent CT scan of the chest abdomen pelvis showed progression of his disease as documented above. The patient continues to remain asymptomatic without any cough, shortness of breath or chest pain. His cancer has progressed on Lonsurf. Lonsurf was restarted on 01/11/2023 Patient received one cycle of Camptosar. He denies any further diarrhea. He still has mild loss of taste. Mr. Valdovinos is stating now that he has missed multiple doses many times of the Lonsurf. He does not Patient had first dose of Camptosar on 12/08/2022. Mr. Valdovinos decided not to take cetuximab due to side effects. Unfortunately he developed severe diarrhea few days later. He was admitted to the hospital because of dehydration. Recent CT scan of the CAP- showed progression of his pulmonary metastatic disease. Tolerating Lonsurf and bevacizumab well without any significant side effects. Unable to tolerate FOLFIRI plus bevacizumab. (12/13/2021) which caused significant nausea, palpitations. It also caused the ICD to be activated twice. He had pacemaker/defibrillator placed January 11, 2021 the patient had acute myocardial infarction as described above requiring to have stent angioplasty of LAD on 09/30/2020. He stopped taking capecitabine after the NH. Arlen Valdovinos is a patient with metastatic lung cancer who has undergone radiation therapy and is experiencing disease progression with multiple pulmonary nodules. Metastatic Lung Cancer Assessment: Patient has metastatic lung cancer with progression of multiple pulmonary nodules confirmed by CT scan. The patient has completed SBRT radiation to lung nodules on the right side and two on the left side, with one more treatment remaining. Cancer markers show significant increase, with CEA rising from 21 in February to 55 currently, indicating disease progression. Previous chemotherapy treatment with capecitabine was discontinued due to myocardial infarction (Widowmaker/Takotsubo cardiomyopathy). Current heart function is decreased at 45-50%. The patient is concerned about further chemotherapy due to cardiac risks. Plan: - Complete remaining SBRT radiation treatment to left lung nodule - Order Jose blood test for cancer monitoring - Order next-generation sequencing test (likely referring to Nicolizoid angiospinal test mentioned) to identify potential mutations - Refer to [facility] for second opinion and tumor board discussion - Consider immunotherapy pending further testing and specialist recommendations - Follow up in 2 months after completion of radiation and specialist consultation RETURN TO CLINIC: BILLING AND COMPLIANCE: I reviewed external records from providers outside my specialty as summarized above. I spent a total of 50 minutes on this patient?s care on the day of their visit excluding time spent related to any billed procedures. This time includes time spent with the patient as well as time spent documenting in the medical record, reviewing patients records and tests, obtaining history, placing orders, communicating with other healthcare professionals, counseling the patient, family or caregiver, and/or care coordination for the diagnoses above. Electronically Signed by: Enzo Nowak MD T: 1:04 PM CC: Bobby? PCP: Rosa Isela Randolph V Referring: Rosa Isela Randolph V This document was completed utilizing speech recognition software. Grammatical errors, random word insertions, pronoun errors, and incomplete sentences are an occasional consequence of this system due to software limitations, ambient noise, and hardware issues. Any formal questions or concerns about the content, text or information contained within the body of this dictation should be directly addressed to the provider for clarification.
== END 2024-07-13 23:59 | disposition home or self-care (01) ==
LOC: SCTC 09:16
PROVIDERS: PCP Nurse Practitioner; Referring Provider Nurse Practitioner; Visit Provider Internal Medicine Hematology & Oncology
DX: Z51.0 Encounter for antineoplastic radiation therapy (principal); C20 Malignant neoplasm of rectum; C78.7 Secondary malignant neoplasm of liver and intrahepatic bile duct; C78.02 Secondary malignant neoplasm of left lung; C78.01 Secondary malignant neoplasm of right lung
CPT/HCPCS: 36591; 77336; 77373; 80053; 82378; 85025; 99212; A4216; J1642; G0463

== ENCOUNTER → 2024-07-23 | Outpatient (CLI) | payer MEDICARE, MEDICAID, SELFPAY ==
[2024-07-23 09:21] LABS: Basophils % (Auto) 0 % (0-2.5); Eosinophils # (Auto) 0.3 Thou/mm3 (0.0-0.5); Eosinophils % (Auto) 7 % (0-10); Hematocrit 42.1 % (41.0-53.0); Hemoglobin 14.5 g/dL (13.5-16.0); Immature Granulocytes % (Auto) 0 % (0-0); Immature Granulocytes Auto 0.01 Thou/mm3 (0.00-0.00); Lymphocytes # (Auto) 0.9 Thou/mm3 (1.0-4.8); Lymphocytes % (Auto) 20 % (10-50); Mean Corpuscular HGB Conc 34.4 g/dl (31.0-37.0); Mean Corpuscular Hemoglobin 33.4 pg (25.0-35.0); Mean Corpuscular Volume 97 fL (80-100); Monocytes # (Auto) 0.5 Thou/mm3 (0.0-0.8); Monocytes % (Auto) 11 % (0-12); Neutrophils # (Auto) 2.7 Thou/mm3 (1.8-7.7); Neutrophils % (Auto) 61 % (37-80); Nucleated Red Blood Cell % 0 /100 WBC (0); Platelet Count 159 Thou/mm3 (140-440); RDW Standard Deviation 49.1 fL (35.1-43.9); Red Blood Count 4.34 Miln/mm3 (4.50-5.90); White Blood Count 4.5 Thou/mm3 (3.8-10.6)
[2024-07-23 09:38] LABS: Alanine Aminotransferase 30 U/L (10-49); Albumin, Serum 4.1 gm/dL (3.4-4.8); Alkaline Phosphatase 133 U/L (46-116); Anion Gap 10 (7-16); BUN/Creatinine Ratio 11 Ratio (12-20); Bilirubin,Direct 0.5 mg/dL (0.0-0.3); Bilirubin,Total 1.3 mg/dL (0.3-1.2); Blood Urea Nitrogen 13 mg/dL (9-23); Calcium 9.1 mg/dL (8.3-10.6); Carbon Dioxide 26.4 mMol/L (20.0-31.0); Cardiac Risk Estimate 2.6 RATIO (4.0-6.7); Chloride 110 mMol/L (98-107); Cholesterol 95 mg/dL (132-200); Creatinine (Component) 1.2 mg/dL (0.6-1.3); Glucose 129 mg/dL (74-106); HDL Cholesterol 36 mg/dL (40-60); LDL Cholesterol,Calculated 43 mg/dL (0-130); Magnesium 1.9 mg/dL (1.6-2.6); Osmolality,Calculated 292 (275-295); Phosphorous 2.8 mg/dL (2.4-5.1); Potassium 5.2 mMol/L (3.4-5.1); Sodium 146 mMol/L (136-145); Total Protein 6.2 gm/dL (5.7-8.2); Triglycerides 81 mg/dL (30-150); eGFR > 60 See Note
== END | disposition home or self-care (01) ==
LOC: COPL 08:08
PROVIDERS: PCP Nurse Practitioner; Referring Provider Specialist; Visit Provider Specialist
DX: E78.00 Pure hypercholesterolemia, unspecified (principal); I11.9 Hypertensive heart disease without heart failure
CPT/HCPCS: 36415; 80048; 80061; 80076; 83735; 84100; 85025

== ENCOUNTER → 2024-08-14 | Outpatient (CLI) | payer MEDICARE, MEDICAID, SELFPAY ==
--- NOTE | 2024-08-14 13:30 | ECHO_ITS ---
Transthoracic Echo Report Ht (in): 67 Wt (lb): 195 Exam Location: Echo Lab Status: Preadmit Seam Rubbing Machine Operator: Halley Aguilar Indications: Procedure Performed: BP: / HR: Technical Quality: Techncially Difficult MEASUREMENTS (Male / Female) Normal Values 2D ECHO LV Diastolic Diameter PLAX 5.8 cm 4.2 - 5.9 / 3.9 - 5.3 cm LV Systolic Diameter PLAX 4.5 cm IVS Diastolic Thickness 0.7 cm 0.6 - 1.0 / 0.6 - 0.9 cm LVPW Diastolic Thickness 1.2 cm 0.6 - 1.0 / 0.6 - 0.9 cm LV Relative Wall Thickness 0.3 LVOT Diameter 1.9 cm LA Volume Index 27.9 cm?/m? 16 - 28 cm?/m? Ascending Aorta Diameter 3.9 cm DOPPLER AV Peak Velocity 111.0 cm/s AV Peak Gradient 4.9 mmHg LVOT Peak Velocity 98.0 cm/s LVOT Peak Gradient 3.8 mmHg AV Area Cont Eq pk 2.5 cm? MV Area PHT 2.4 cm? Mitral E Point Velocity 50.9 cm/s Mitral A Point Velocity 74.7 cm/s Mitral E to A Ratio 0.7 LV E' Lateral Velocity 5.4 cm/s Mitral E to LV E' Lateral Ratio 9.4 LV E' Septal Velocity 4.8 cm/s Mitral E to LV E' Septal Ratio 10.6 PV Peak Velocity 59.7 cm/s PV Peak Gradient 1.4 mmHg FINDINGS Left Ventricle The left ventricular cavity size is normal. The left ventricular wall thicknesses are normal. The left ventricular ejection fraction is mildly decreased, estimated at 45-50%. There is grade I diastolic dysfunction of the left ventricle (impaired relaxation pattern). There is akinesis in the apical cap. Right Ventricle The right ventricle is normal in size and systolic function. The estimated right ventricular systolic pressure can not be determined due to innadequate tricuspid signal. An ICD wire is present in the right ventricular cavity. Left Atrium The left atrium is normal by two-dimensional, color flow and Doppler imaging with no structural abnormalities, no thrombus formation present. Right Atrium The right atrium is normal by two-dimensional imaging, color flow and Doppler imaging with no structural abnormalities, no thrombus formation present. Atrial Septum The interatrial septum appears normal with no evidence of a shunt. Aorta The aorta is normal by two-dimensional, color flow and Doppler interrogation. Mitral Valve The mitral valve annulus as well as leaflets are mildly calcified. There is no significant mitral valve regurgitation, stenosis or prolapse. Aortic Valve The aortic valve is trileaflet and mildly sclerotic without stenosis. There is trace aortic regurgitation. Tricuspid Valve The tricuspid valve is normal by two-dimensional, color flow and Doppler interrogation. There is no significant tricuspid valve regurgitation. Pulmonic Valve The pulmonic valve is not well visualized. There is no significant pulmonic valve regurgitation. Vessels The pulmonary artery appears normal. The inferior vena cava pulmonary and hepatic veins appear normal. Pericardium The pericardium is normal by two-dimensional imaging. There is no significant pericardial effusion. CONCLUSIONS Indication: Rectal Cancer Normal LV Size. Global Hypokensis with Estimated EF of 40-45%. Apical Akinesis. Normal RV. Mild AOV Sclerosis. Mild MAC. Trace AI No Pericardial Effusion. Vicente Martins (Electronically Signed) Final Date: 14 August 2024 16:06
== END | disposition home or self-care (01) ==
PROVIDERS: PCP Nurse Practitioner; Referring Provider Internal Medicine Hematology & Oncology; Visit Provider Internal Medicine Hematology & Oncology
DX: I35.8 Other nonrheumatic aortic valve disorders (principal); I34.81 Nonrheumatic mitral (valve) annulus calcification; C20 Malignant neoplasm of rectum
CPT/HCPCS: 93306

== ENCOUNTER 2024-08-15 10:57 | Outpatient (RCR) | payer MEDICARE, MEDICAID, SELFPAY ==
[2024-08-14 09:45] LABS: Basophils # (Auto) 0.0 Thou/mm3 (0.0-0.2); Basophils % (Auto) 1 % (0-2.5); Eosinophils # (Auto) 0.4 Thou/mm3 (0.0-0.5); Eosinophils % (Auto) 7 % (0-10); Hematocrit 41.9 % (41.0-53.0); Hemoglobin 14.8 g/dL (13.5-16.0); Immature Granulocytes Auto 0.02 Thou/mm3 (0.00-0.00); Lymphocytes # (Auto) 0.9 Thou/mm3 (1.0-4.8); Lymphocytes % (Auto) 15 % (10-50); Mean Corpuscular HGB Conc 35.3 g/dl (31.0-37.0); Mean Corpuscular Hemoglobin 33.5 pg (25.0-35.0); Mean Corpuscular Volume 95 fL (80-100); Monocytes # (Auto) 0.6 Thou/mm3 (0.0-0.8); Monocytes % (Auto) 9 % (0-12); Neutrophils # (Auto) 4.1 Thou/mm3 (1.8-7.7); Neutrophils % (Auto) 68 % (37-80); Nucleated Red Blood Cell # 0.00 Thou/mm3 (0.00-0.00); Nucleated Red Blood Cell % 0 /100 WBC (0); Platelet Count 188 Thou/mm3 (140-440); RDW Standard Deviation 45.4 fL (35.1-43.9); Red Blood Count 4.42 Miln/mm3 (4.50-5.90); White Blood Count 6.0 Thou/mm3 (3.8-10.6)
[2024-08-14 10:21] LABS: Alanine Aminotransferase 25 U/L (10-49); Albumin, Serum 4.1 gm/dL (3.4-4.8); Albumin/Globulin Ratio 1.7 (1.2-2.2); Alkaline Phosphatase 154 U/L (46-116); Anion Gap 4 (7-16); Aspartate Amino Transferase 27 U/L (0-34); BUN/Creatinine Ratio 10 Ratio (12-20); Bilirubin,Total 1.5 mg/dL (0.3-1.2); Blood Urea Nitrogen 11 mg/dL (9-23); Calcium 8.6 mg/dL (8.3-10.6); Calcium (Corrected) 8.6 mg/dL (8.5-10.1); Carbon Dioxide 24.2 mMol/L (20.0-31.0); Chloride 110 mMol/L (98-107); Creatinine (Component) 1.1 mg/dL (0.6-1.3); Globulin 2.4 gm/dL (2.3-3.5); Glucose 114 mg/dL (74-106); Osmolality,Calculated 276 (275-295); Potassium 4.0 mMol/L (3.4-5.1); Sodium 138 mMol/L (136-145); Total Protein 6.5 gm/dL (5.7-8.2); eGFR > 60 See Note
[2024-08-14 10:40] LABS: Carcinoembryonic Antigen 210.7 ng/mL (0.0-5.0)
--- NOTE | 2024-09-02 00:06 | CTCFLWUP_ITS ---
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 Her history includes a 2000 heart attack with current ejection fraction of 45-50%. Recent Jose testing showed elevated ctDNA level of 190, indicating disease progression. Previous treatments included radiation therapy, FOLFIRI (discontinued due to palpitations), capecitabine, Lonsurf with Avastin, and Stivarga with irinotecan (caused severe diarrhea requiring hospitalization). Treatment plan includes restarting Lonsurf and Avastin with supportive medications for side effects, administering leuprolide, and monitoring cardiac function during treatment. 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 She has a history of a heart attack in 2000 and has undergone various treatments for her cancer. The patient's cancer appears to be progressing rapidly, as evidenced by recent Jose testing showing a high ctDNA level of 190. She has previously undergone radiation therapy, with 6 treatments total, 3 on each side. Her cancer is characterized by NRAS mutation, positive BRAF mutation, and PDL1-negative normal mmR. Arlen has experienced difficulties with various treatment regimens. She was unable to tolerate FOLFIRI due to palpitations and nausea. In 2020, she had her ICD activated twice and was unable to tolerate Babbage, Kosykin, and Claude. A CT scan at that time showed progression of pulmonary mets. She also experienced acute hematocrit and constant angioplasty. The patient's treatment history includes capecitabine, which was discontinued due to concerns about causing a heart attack. She was then started on Lonsurf and Avastin in 2021, which initially showed some improvement but was later discontinued. In November 2022, she was started on Stivarga and irinotecan, which caused severe diarrhea and a decrease in white blood cell count, leading to hospitalization. Regarding her cardiac function, Arlen's current ejection fraction is 45-50%, which is lower than the normal 60%. She reports taking six pills in the morning for her heart condition and has had a stent placed. The patient expresses a strong desire to avoid further hospitalizations. Arlen mentions experiencing nausea during previous treatments. She states that Benadryl and Zofran were the only medications given to her before her recent hospitalization, and she believes the Benadryl negatively affected her. She reports tolerating her initial 6 months of chemotherapy without requiring additional medications for side effects. Medications and Supplements - Lonsurf - Previously taken with Avastin. Stopped in November 2022. - Being considered for restarting. - Avastin - Previously taken with Lonsurf. - Stivarga - Irinotecan - Caused severe diarrhea and lowered white blood cell count. - Capecitabine - Discontinued due to concerns about causing a heart attack. - Benadryl - Given as a shot before hospitalization. - Zofran - Given before hospitalization. Review of Systems Cardiovascular: Negative for palpitations. Gastrointestinal: Positive for severe diarrhea. Objective: Laboratory, Imaging, and Diagnostic Test Results - Jose testing (blood test): - ctDNA: 190 (significantly elevated; typical patient range 0.1-10) - Echocardiogram: - Ejection fraction: 45-50% (normal is 60%) - CT scan: - Showed progression of pulmonary metastases - MRI: - Revealed 5FU and BRAF mutations - Genetic testing: - NRAS mutation: Positive - BRAF mutation: Positive - PDL1: Negative - MMR: Normal - EKG (2018): - Heart rate: 55 bpm ONCOLOGY HISTORY:?[facility] Oncology Hx? DIAGNOSIS: Malignant neoplasm of rectum [ICD10] C20 DATE OF DIAGNOSIS: 08/03/2017 STAGE/TNM: Stage 4 TREATMENT HISTORY: Care?Plan Start?Date Cycle Day Intent mFOLFOX-6?+?Bevacizumab?5?mg/kg 01/22/2018 1 14 Palliative FOLFIRI?+?Bevacizumab?5mg/kg 11/17/2021 2 14 Palliative Bevacizumab?5mg/kg 01/03/2022 1 28 Palliative Cetux+Irinotecan 11/28/2022 1 14 Palliative Cetux+?Irinotecan 12/08/2022 1 14 Palliative?(other) Bevacizumab?10?mg/kg?-?Met 08/15/2024 1 28 Palliative HISTORY OF PRESENT ILLNESS: Arlen Valdovinos is a 63-year-old male with history of hypertension has been having rectal bleeding for last few months. 08/03/2017: Patient had a colonoscopy which showed a rectal mass. Biopsies taken from this mass showed moderately differentiated adenocarcinoma. 09/20/2017: Patient was seen by Dr. Rui Solorzano who performed a rectosigmoidectomy and coloproctostomy. Surgical pathology specimen showed 4.1 cm moderately to poorly differentiated invasive adenocarcinoma invading through the muscularis propria into pericolonic fat. Tumor is localized to the rectum. Perineural invasion was identified. Lymphovascular invasion was negative. 1 out of 15 lymph nodes were positive for metastatic disease with large deposit measuring 8 mm in size. MMR testing showed intact proteins. His postoperative course was uneventful. 11/16/2017: Patient is in the clinic today for initial consultation. CEA 29.2. PET CT scan requested. 12/08/2017: Patient had PET CT scan done which showed a 12 mm hypermetabolic focus in the right lobe of the liver with an SUV of 4.68. 12/13/2017: CT scan of the chest abdomen and pelvis with IV contrast was obtained which showed multiple small bilateral noncalcified pulmonary nodules worrisome for pulmonary metastatic nodular disease as well as a 21 mm ringlike enhancing lesion corresponding to the hypermetabolic poor focus noted on the PET CT scan and 4 small solid right lobe liver lesions consistent with hepatic metastasis is also noted. 01/12/2018: Ultrasound-guided biopsy of the liver lesion? Arlen Valdovinos is a 63-year-old male with history of hypertension has been having rectal bleeding for last few months. 08/03/2017: Patient had a colonoscopy which showed a rectal mass. Biopsies taken from this mass showed moderately differentiated adenocarcinoma. 09/20/2017: Patient was seen by Dr. Rui Solorzano who performed a rectosigmoidectomy and coloproctostomy. Surgical pathology specimen showed 4.1 cm moderately to poorly differentiated invasive adenocarcinoma invading through the muscularis propria into pericolonic fat. Tumor is localized to the rectum. Perineural invasion was identified. Lymphovascular invasion was negative. 1 out of 15 lymph nodes were positive for metastatic disease with large deposit measuring 8 mm in size. MMR testing showed intact proteins. His postoperative course was uneventful. 11/16/2017: Patient is in the clinic today for initial consultation. CEA 29.2. PET CT scan requested. 12/08/2017: Patient had PET CT scan done which showed a 12 mm hypermetabolic focus in the right lobe of the liver with an SUV of 4.68. 12/13/2017: CT scan of the chest abdomen and pelvis with IV contrast was obtained which showed multiple small bilateral noncalcified pulmonary nodules worrisome for pulmonary metastatic nodular disease as well as a 21 mm ringlike enhancing lesion corresponding to the hypermetabolic poor focus noted on the PET CT scan and 4 small solid right lobe liver lesions consistent with hepatic metastasis is also noted. 01/12/2018: Ultrasound-guided biopsy of the liver lesion- 01/22/2018-07/16/2018: Patient received 11 doses (cycle 5-day 1) FOLFOX plus Avastin. 08/04/2018: PET CT scan-negative for metastatic disease 02/07/2018: CEA 40.9 09/04/2018 CEA 0.6 09/10/2018: Patient is started on maintenance capecitabine 2 g in the morning and 1.5 grams in the evening on days 1 through 14 followed by 7 days rest. 05/22/2019: CEA less than 0.5. 06/14/2019: PET CT scan-negative for metastatic disease. 11/09/2019: PET CT scan- 11/18/2019: CT scan of the chest, abdomen and pelvis with IV contrast- 06/17/2020: CEA 0.8. 07/08/2020: CT scan of the chest, abdomen and pelvis with IV contrast- 09/30/2020: Mr. Valdovinos had acute anterior myocardial infarction. He had stent angioplasty of LAD done. Patient stopped taking capecitabine. 01/01/2022: CT scan of the chest abdomen and pelvis with IV contrast- 04/22/2021: CT scan of the chest abdomen and pelvis with IV contrast 11/01/21: CEA 1.4 11/22/2021: CT scan of the chest abdomen and pelvis with IV contrast 12/13/2021: Patient received cycle 1 day 1 of FOLFIRI and bevacizumab. Unfortunately he had significant nausea lasting for more than 1 week. He also had palpitations. He is ICD was activated twice. 02/07/2022: Mr. Valdovinos is started on Lonsurf and bevacizumab. 11/21/2022: CT scan of the chest abdomen and pelvis with IV contrast- 11/28/2022: Lonsurf and bevacizumab discontinued due to progression. 12/08/2022: Patient received first dose of Camptosar. Unfortunately he developed severe diarrhea a few days later requiring him to be admitted to the hospital for dehydration. Patient received IV fluids as well as Lomotil during the hospital stay. 01/11/2023: Lonsurf restarted at patient's request. Mr. Valdovinos stated that he did not follow the instructions on Lonsurf prescription properly in the past. 04/11/2023: CT scan of the chest abdomen pelvis with IV contrast- 07/19/2023: CT scan of the chest abdomen and pelvis with IV contrast 01/22/2018?07/16/2018: Patient received 11 doses (cycle 5-day 1) FOLFOX plus Avastin. 08/04/2018: PET CT scan?negative for metastatic disease 02/07/2018: CEA 40.9 09/04/2018 CEA 0.6 09/10/2018: Patient is started on maintenance capecitabine 2 g in the morning and 1.5 grams in the evening on days 1 through 14 followed by 7 days rest. 05/22/2019: CEA less than 0.5. 06/14/2019: PET CT scan?negative for metastatic disease. 11/09/2019: PET CT scan? 11/18/2019: CT scan of the chest, abdomen and pelvis with IV contrast? 06/17/2020: CEA 0.8. 07/08/2020: CT scan of the chest, abdomen and pelvis with IV contrast? 09/30/2020: Mr. Valdovinos had acute anterior myocardial infarction. He had stent angioplasty of LAD done. Patient stopped taking capecitabine. 01/01/2022: CT scan of the chest abdomen and pelvis with IV contrast? 04/22/2021: CT scan of the chest abdomen and pelvis with IV contrast 11/01/21: CEA 1.4 11/22/2021: CT scan of the chest abdomen and pelvis with IV contrast 12/13/2021: Patient received cycle 1 day 1 of FOLFIRI and bevacizumab. Unfortunately he had significant nausea lasting for more than 1 week. He also had palpitations. He is ICD was activated twice. 02/07/2022: Mr. Valdovinos is started on Lonsurf and bevacizumab. 11/21/2022: CT scan of the chest abdomen and pelvis with IV contrast? 11/28/2022: Lonsurf and bevacizumab discontinued due to progression. 12/08/2022: Patient received first dose of Camptosar. Unfortunately he developed severe diarrhea a few days later requiring him to be admitted to the hospital for dehydration. Patient received IV fluids as well as Lomotil during the hospital stay. 01/11/2023: Lonsurf restarted at patient's request. Mr. Valdovinos stated that he did not follow the instructions on Lonsurf prescription properly in the past. 04/11/2023: CT scan of the chest abdomen pelvis with IV contrast? 07/19/2023: CT scan of the chest abdomen and pelvis with IV contrast OTHER MEDICAL HISTORY/CONDITIONS: FAMILY HISTORY: ?[facility] Family Hx? SOCIAL HISTORY: MEDICATIONS: 1. aspirin - 81 mg 1 tab Every other day 2. atorvastatin - 80 mg 1 tab Daily 3. Brilinta - 60 mg 1 tab Twice a Day 4. carvedilol - 6.25 mg 1 tab Twice a Day 5. Entresto - 49-51 mg 1 tab Twice a Day 6. ezetimibe - 10 mg 1 tab Daily?Palabra Meds? Medications Last Reconciled by Mickie Ovalles MA on 08/15/2024 ALLERGIES: No Known Drug Allergies REVIEW OF SYSTEMS: A complete 14-point review of systems was performed and is negative except as noted in interval history. PHYSICAL EXAMINATION:?[facility] PE? VITAL SIGNS: Temperature?98.2, B/P?122/79, Oxygen?Saturation?95% Weight?197?lbs (Change?since?08/14/24:?1.4?lbs) PAIN: 0 - No pain ECOG Performance Status: 1 - Symptomatic; ambulatory; restricted in strenuous activity GENERAL APPEARANCE: Appears well, in no apparent distress, appropriately interactive. HEENT: Normocephalic, no temporal wasting, normal conjunctiva, no scleral icterus, normal hearing, lips without lesions, neck normal range of motion. CARDIOVASCULAR: Not assessed. PULMONARY: Normal respiratory effort, no respiratory distress or use of accessory muscles, speaking in full sentences, no tachypnea. EXTREMITIES: No pedal edema or cyanosis. SKIN: Normal skin appearance. NEUROLOGIC: Alert and oriented x4. PSHYCHIATRIC: Appropriate affect, mood normal, behavior normal, intact thought and speech. LABORATORY DATA: I have personally reviewed and interpreted each of the patient?s relevant lab tests, abnormal findings are below: Date 07/23/24 08/14/24 ??WHITE?BLOOD?COUNT?(Thou/mm3) ? 6.0 ??RED?BLOOD?COUNT?(Miln/mm3) ? 4.42?L ??HEMOGLOBIN?(gm/dl) ? 14.8 ??HEMATOCRIT?(%) ? 41.9 ??PLATELET?COUNT?(Thou/mm3) ? 188 ??NEUTROPHILS?%,?AUTO?(%) ? 68 ??LYMPH?%,?AUTO?(%) ? 15 ??NEUTROPHILS,?AUTO?(Thou/mm3) ? 4.1 ??GLUCOSE,RANDOM?(mg/dL) ? 114?H ??BLOOD?UREA?NITROGEN?(mg/dL) ? 11 ??CREATININE?(mg/dL) ? 1.10 ??SODIUM?(mmol/L) ? 138 ??POTASSIUM?(mmol/L) ? 4.0 ??CHLORIDE?(mmol/L) ? 110?H ??CrCl?(CandG)?(ml/min) ? 72.75 ??AST/SGOT?(Unit/L) ? 27 ??ALT/SGPT?(Unit/L) 30 25 ??ALKALINE?PHOSPHATASE?(Unit/L) 133?H 154?H ??BILIRUBIN,?TOTAL?(mg/dL) 1.3?H 1.5?H ??PROTEIN?TOTAL?(gm/dl) 6.2 6.5 ??ALBUMIN,?SERUM?(gm/dl) 4.1 4.1 ??GLOBULIN?(gm/dl) ? 2.4 ??ALBUMIN/GLOBULIN?RATIO ? 1.7 ??CALCIUM,?SERUM?(mg/dL) ? 8.6 ??CALCIUM?SERUM?(CORRECTED)?(mg/dL) ? 8.6 ??CEA?(O*)?(ng/ml) ? 210.7?H ASSESSMENT/PLAN:?Diaz Nowak Assessment/Plan? stage IV rectal adenocarcinoma with liver lesions as well as pulmonary lesions. N-SOSA mutation positive, B-Giacomo mutation positive, PDL 1 expression negative and normal MMR protein expression by IHC Recent CT scan of the chest abdomen pelvis showed progression of his disease as documented above. The patient continues to remain asymptomatic without any cough, shortness of breath or chest pain. His cancer has progressed on Lonsurf. Lonsurf was restarted on 01/11/2023 Patient received one cycle of Camptosar. He denies any further diarrhea. He still has mild loss of taste. Mr. Valdovinos is stating now that he has missed multiple doses many times of the Lonsurf. He does not Patient had first dose of Camptosar on 12/08/2022. Mr. Valdovinos decided not to take cetuximab due to side effects. Unfortunately he developed severe diarrhea few days later. He was admitted to the hospital because of dehydration. Recent CT scan of the CAP- showed progression of his pulmonary metastatic disease. Tolerating Lonsurf and bevacizumab well without any significant side effects. Unable to tolerate FOLFIRI plus bevacizumab. (12/13/2021) which caused significant nausea, palpitations. It also caused the ICD to be activated twice. He had pacemaker/defibrillator placed January 11, 2021 the patient had acute myocardial infarction as described above requiring to have stent angioplasty of LAD on 09/30/2020. He stopped taking capecitabine after the PR. Recent Jose testing revealed extremely high ctDNA levels of 190, indicating aggressive disease progression. Genetic testing shows NRAS mutation positive, BRAF mutation positive, and PDL1-negative normal mmR. CT scan demonstrates progression of pulmonary metastases. Patient has a history of heart issues, with current ejection fraction of 45-50% (normal being 60%). Previous treatments include FOLFIRI (not tolerated due to palpitations and nausea), capecitabine (discontinued due to suspected cardiac issues), Lonsurf with Avastin (initially showed improvement, then discontinued), and Stivarga with irinotecan (caused severe diarrhea and decreased white cell count). Plan: - Restart Lonsurf and Avastin combination therapy - Provide anti-nausea medication and atropine for potential side effects - Administer leuprolide - Consider IV fluids in the clinic if needed - Monitor for treatment response and side effects - Discuss potential future treatments if Lonsurf and Avastin are ineffective: - Regorafenib - Gemcitabine and cisplatin combination - Single-agent gemcitabine - Schedule follow-up to assess treatment efficacy and tolerability Cardiac Function Assessment: Patient has a history of heart attack in September 2000 and current ejection fraction of 45-50%. There is uncertainty about whether the reduced ejection fraction is due to chemotherapy effects or pre-existing condition, as there is no documented baseline echocardiogram prior to chemotherapy initiation. Patient has an implanted cardiac device (ICD) which has been activated twice in 2020. EKG from 2018 showed a low heart rate of 55, suggesting pre-existing cardiac issues. Plan: - Review previous cardiac records and tests - Consult with patient's manager multicultural (Dr. Hart) to clarify cardiac history and current status - Continue current cardiac medications as prescribed - Monitor cardiac function during cancer treatment ORDERS: Order # Description [id number] Comprehensive Metabolic Panel + CBC with Auto Diff + CEA + Urinalysis, Automated with Microscopy [id number] Follow Up Appointment [id number] Infusion 1 Hour [id number] Infusion 1 Hour [id number] Comprehensive Metabolic Panel + CBC with Auto Diff + CEA + Urinalysis, Automated with Microscopy [id number] Follow Up Appointment [id number] Infusion 1 Hour [id number] Infusion 1 Hour [id number] Comprehensive Metabolic Panel + CBC with Auto Diff + CEA + Urinalysis, Automated with Microscopy [id number] Follow Up Appointment [id number] Infusion 1 Hour [id number] Infusion 1 Hour [id number] Comprehensive Metabolic Panel + CBC with Auto Diff + CEA + Urinalysis, Automated with Microscopy [id number] Follow Up Appointment [id number] Infusion 1 Hour [id number] Infusion 1 Hour [id number] Comprehensive Metabolic Panel + CBC with Auto Diff + CEA + Urinalysis, Automated with Microscopy [id number] Follow Up Appointment [id number] Infusion 1 Hour [id number] Infusion 1 Hour [id number] Comprehensive Metabolic Panel + CBC with Auto Diff + CEA + Urinalysis, Automated with Microscopy [id number] Follow Up Appointment RETURN TO CLINIC: I reviewed the diagnosis, prognosis, and recommended treatment/procedure options with the patient (and/or their legal authorization representative), including the potential benefits, risks, side effects and alternative therapies. We also discussed the option of no treatment and the possibility of clinical trial participation, if applicable. All questions were addressed, and they demonstrated understanding. They provided informed consent to proceed with the proposed plan of care. BILLING AND COMPLIANCE: I reviewed external records from providers outside my specialty as summarized above. I spent a total of 50 minutes on this patient?s care on the day of their visit excluding time spent related to any billed procedures. This time includes time spent with the patient as well as time spent documenting in the medical record, reviewing patients records and tests, obtaining history, placing orders, communicating with other healthcare professionals, counseling the patient, family or caregiver, and/or care coordination for the diagnoses above. Electronically Signed by: Enzo Nowak MD T: 12:04 AM CC: Rui?Rashad,? PCP: Enzo Nowak Referring: Rosa Isela Randolph V This document was completed utilizing speech recognition software. Grammatical errors, random word insertions, pronoun errors, and incomplete sentences are an occasional consequence of this system due to software limitations, ambient noise, and hardware issues. Any formal questions or concerns about the content, text or information contained within the body of this dictation should be directly addressed to the provider for clarification.
== END 2024-09-12 23:59 | disposition home or self-care (01) ==
LOC: SCTC 10:57
PROVIDERS: PCP Nurse Practitioner; Referring Provider Nurse Practitioner; Visit Provider Internal Medicine Hematology & Oncology
DX: C20 Malignant neoplasm of rectum (principal); C78.7 Secondary malignant neoplasm of liver and intrahepatic bile duct; C78.02 Secondary malignant neoplasm of left lung; C78.01 Secondary malignant neoplasm of right lung; I25.2 Old myocardial infarction; I34.81 Nonrheumatic mitral (valve) annulus calcification; I35.8 Other nonrheumatic aortic valve disorders
CPT/HCPCS: 36591; 80053; 82378; 85025; 93306; 99212; A4216; J1642; G0463

== ENCOUNTER → 2024-09-27 | Outpatient (CLI) | payer MEDICARE, MEDICAID, SELFPAY ==
--- NOTE | 2024-09-27 15:59 | XR_ITS ---
Examination:Left hip AP, lateral, AP pelvis 3 views Technique: Hip AP lateral, AP pelvis, 3 views Exam date and time:September 27, 2024 1523 hours INDICATIONS: Left hip pain 3 days. FINDINGS: No left hip fracture or dislocation Moderate bilateral hip osteoarthritis Right hip bones of the pelvis intact IMPRESSION: Moderate bilateral hip osteoarthritis.
== END | disposition home or self-care (01) ==
PROVIDERS: PCP Internal Medicine; Referring Provider Internal Medicine; Visit Provider Internal Medicine
DX: M16.0 Bilateral primary osteoarthritis of hip (principal)
CPT/HCPCS: 73502

== ENCOUNTER → 2024-10-08 | Outpatient (CLI) | payer MEDICARE, MEDICAID, SELFPAY ==
[2024-10-08 13:42] LABS: Collection Type, Urine Clean Catch
[2024-10-08 13:58] LABS: Basophils # (Auto) 0.0 Thou/mm3 (0.0-0.2); Basophils % (Auto) 1 % (0-2.5); Eosinophils # (Auto) 0.2 Thou/mm3 (0.0-0.5); Eosinophils % (Auto) 4 % (0-10); Hematocrit 40.9 % (41.0-53.0); Hemoglobin 14.4 g/dL (13.5-16.0); Immature Granulocytes Auto 0.02 Thou/mm3 (0.00-0.00); Lymphocytes # (Auto) 1.1 Thou/mm3 (1.0-4.8); Lymphocytes % (Auto) 18 % (10-50); Mean Corpuscular HGB Conc 35.2 g/dl (31.0-37.0); Mean Corpuscular Hemoglobin 32.4 pg (25.0-35.0); Mean Corpuscular Volume 92 fL (80-100); Monocytes # (Auto) 0.6 Thou/mm3 (0.0-0.8); Monocytes % (Auto) 10 % (0-12); Neutrophils # (Auto) 4.2 Thou/mm3 (1.8-7.7); Neutrophils % (Auto) 67 % (37-80); Nucleated Red Blood Cell # 0.00 Thou/mm3 (0.00-0.00); Nucleated Red Blood Cell % 0 /100 WBC (0); Platelet Count 202 Thou/mm3 (140-440); RDW Standard Deviation 40.6 fL (35.1-43.9); Red Blood Count 4.44 Miln/mm3 (4.50-5.90); White Blood Count 6.2 Thou/mm3 (3.8-10.6)
[2024-10-08 14:01] LABS: Bilirubin,Urine Negative (Negative); Blood,Urine Negative (Negative); Clarity,Urine Clear (Clear/Hazy); Color,Urine Colorless (Lt Yel-Yel); Glucose, Urine Negative (Negative); Ketones,Urine Negative (Negative); Leukocyte Esterase,Urine Negative (Negative); Nitrite,Urine Negative (Negative); PH,Urine 6.0 (5.0-7.0); Protein,Urine Negative (Neg - Trace); RBC,Urine 3 /hpf (0-3); Specific Gravity,Urine 1.007 (1.001-1.035); Squamous Epithelial Cell,Urine < 1 /hpf (0-5); Urobilinogen,Urine Negative mg/dL (0.0-1.0); WBC,Urine 1 /hpf (0-5)
[2024-10-08 14:17] LABS: Carcinoembryonic Antigen 83.3 ng/mL (0.0-5.0)
[2024-10-08 14:28] LABS: Alanine Aminotransferase 17 U/L (10-49); Albumin, Serum 4.2 gm/dL (3.4-4.8); Albumin/Globulin Ratio 2.0 (1.2-2.2); Alkaline Phosphatase 169 U/L (46-116); Anion Gap 9 (7-16); Aspartate Amino Transferase 22 U/L (0-34); BUN/Creatinine Ratio 13 Ratio (12-20); Bilirubin,Total 1.5 mg/dL (0.3-1.2); Blood Urea Nitrogen 14 mg/dL (9-23); Calcium 9.6 mg/dL (8.3-10.6); Calcium (Corrected) 9.6 mg/dL (8.5-10.1); Carbon Dioxide 25.3 mMol/L (20.0-31.0); Chloride 106 mMol/L (98-107); Creatinine (Component) 1.1 mg/dL (0.6-1.3); Globulin 2.1 gm/dL (2.3-3.5); Glucose 94 mg/dL (74-106); Osmolality,Calculated 279 (275-295); Potassium 4.4 mMol/L (3.4-5.1); Sodium 140 mMol/L (136-145); Total Protein 6.3 gm/dL (5.7-8.2); eGFR > 60 See Note
== END | disposition home or self-care (01) ==
PROVIDERS: PCP Family Medicine; Referring Provider Radiology Therapeutic Radiology; Visit Provider Radiology Therapeutic Radiology
DX: C20 Malignant neoplasm of rectum (principal); C78.00 Secondary malignant neoplasm of unspecified lung
CPT/HCPCS: 36415; 80053; 81001; 82378; 85025

== ENCOUNTER 2024-10-09 07:28 | Outpatient (RCR) | payer MEDICARE, MEDICAID, SELFPAY ==
[2024-09-24 15:28] LABS: Collection Type, Urine Voided; RBC,Urine 0 /hpf (0-3); Squamous Epithelial Cell,Urine 0 /hpf (0-5)
[2024-09-24 15:34] LABS: Basophils # (Auto) 0.1 Thou/mm3 (0.0-0.2); Basophils % (Auto) 1 % (0-2.5); Eosinophils # (Auto) 0.6 Thou/mm3 (0.0-0.5); Eosinophils % (Auto) 11 % (0-10); Hematocrit 41.4 % (41.0-53.0); Hemoglobin 14.2 g/dL (13.5-16.0); Immature Granulocytes Auto 0.01 Thou/mm3 (0.00-0.00); Lymphocytes # (Auto) 0.9 Thou/mm3 (1.0-4.8); Lymphocytes % (Auto) 17 % (10-50); Mean Corpuscular HGB Conc 34.3 g/dl (31.0-37.0); Mean Corpuscular Hemoglobin 32.6 pg (25.0-35.0); Mean Corpuscular Volume 95 fL (80-100); Monocytes # (Auto) 0.7 Thou/mm3 (0.0-0.8); Monocytes % (Auto) 13 % (0-12); Neutrophils # (Auto) 3.1 Thou/mm3 (1.8-7.7); Neutrophils % (Auto) 58 % (37-80); Nucleated Red Blood Cell # 0.00 Thou/mm3 (0.00-0.00); Nucleated Red Blood Cell % 0 /100 WBC (0); Platelet Count 179 Thou/mm3 (140-440); RDW Standard Deviation 43.1 fL (35.1-43.9); Red Blood Count 4.35 Miln/mm3 (4.50-5.90); White Blood Count 5.4 Thou/mm3 (3.8-10.6)
[2024-09-24 15:42] LABS: Bilirubin,Urine Negative (Negative); Blood,Urine Negative (Negative); Clarity,Urine Clear (Clear/Hazy); Color,Urine Colorless (Lt Yel-Yel); Glucose, Urine Negative (Negative); Ketones,Urine Negative (Negative); Leukocyte Esterase,Urine Negative (Negative); Nitrite,Urine Negative (Negative); PH,Urine 6.0 (5.0-7.0); Protein,Urine Negative (Neg - Trace); Specific Gravity,Urine 1.003 (1.001-1.035); Urobilinogen,Urine Negative mg/dL (0.0-1.0); WBC,Urine < 1 /hpf (0-5)
[2024-09-24 15:51] LABS: Alanine Aminotransferase 18 U/L (10-49); Albumin, Serum 4.0 gm/dL (3.4-4.8); Albumin/Globulin Ratio 1.9 (1.2-2.2); Alkaline Phosphatase 166 U/L (46-116); Anion Gap 8 (7-16); Aspartate Amino Transferase 22 U/L (0-34); BUN/Creatinine Ratio 7 Ratio (12-20); Bilirubin,Total 1.3 mg/dL (0.3-1.2); Blood Urea Nitrogen 8 mg/dL (9-23); Calcium 8.6 mg/dL (8.3-10.6); Calcium (Corrected) 8.6 mg/dL (8.5-10.1); Carbon Dioxide 23.6 mMol/L (20.0-31.0); Chloride 107 mMol/L (98-107); Creatinine (Component) 1.1 mg/dL (0.6-1.3); Globulin 2.1 gm/dL (2.3-3.5); Glucose 104 mg/dL (74-106); Osmolality,Calculated 275 (275-295); Potassium 3.8 mMol/L (3.4-5.1); Sodium 139 mMol/L (136-145); Total Protein 6.1 gm/dL (5.7-8.2); eGFR > 60 See Note
[2024-09-24 16:29] LABS: Carcinoembryonic Antigen 170.4 ng/mL (0.0-5.0)
== END 2024-10-13 23:59 | disposition home or self-care (01) ==
LOC: SCTC 07:28
PROVIDERS: PCP Nurse Practitioner; Referring Provider Nurse Practitioner; Visit Provider Internal Medicine Hematology & Oncology
DX: Z51.11 Encounter for antineoplastic chemotherapy (principal); C20 Malignant neoplasm of rectum; C78.02 Secondary malignant neoplasm of left lung; C78.01 Secondary malignant neoplasm of right lung; C78.7 Secondary malignant neoplasm of liver and intrahepatic bile duct; Z92.3 Personal history of irradiation
CPT/HCPCS: 36591; 80053; 81001; 82378; 85025; 96413; 99212; A4216; J1642; J7050; Q5126; G0463

== ENCOUNTER 2024-11-06 07:12 | Outpatient (RCR) | payer MEDICARE, MEDICAID, SELFPAY ==
[2024-10-15 16:11] LABS: Basophils # (Auto) 0.0 Thou/mm3 (0.0-0.2); Basophils % (Auto) 1 % (0-2.5); Eosinophils # (Auto) 0.2 Thou/mm3 (0.0-0.5); Eosinophils % (Auto) 4 % (0-10); Hematocrit 35.5 % (41.0-53.0); Hemoglobin 12.7 g/dL (13.5-16.0); Immature Granulocytes Auto 0.02 Thou/mm3 (0.00-0.00); Lymphocytes # (Auto) 0.8 Thou/mm3 (1.0-4.8); Lymphocytes % (Auto) 18 % (10-50); Mean Corpuscular HGB Conc 35.8 g/dl (31.0-37.0); Mean Corpuscular Hemoglobin 34.0 pg (25.0-35.0); Mean Corpuscular Volume 95 fL (80-100); Monocytes # (Auto) 0.4 Thou/mm3 (0.0-0.8); Monocytes % (Auto) 10 % (0-12); Neutrophils # (Auto) 2.8 Thou/mm3 (1.8-7.7); Neutrophils % (Auto) 67 % (37-80); Nucleated Red Blood Cell # 0.00 Thou/mm3 (0.00-0.00); Nucleated Red Blood Cell % 0 /100 WBC (0); Platelet Count 153 Thou/mm3 (140-440); RDW Standard Deviation 42.0 fL (35.1-43.9); Red Blood Count 3.74 Miln/mm3 (4.50-5.90); White Blood Count 4.2 Thou/mm3 (3.8-10.6)
[2024-10-15 16:43] LABS: Alanine Aminotransferase 14 U/L (10-49); Albumin, Serum 3.7 gm/dL (3.4-4.8); Albumin/Globulin Ratio 1.8 (1.2-2.2); Alkaline Phosphatase 143 U/L (46-116); Anion Gap 10 (7-16); Aspartate Amino Transferase 19 U/L (0-34); BUN/Creatinine Ratio 14 Ratio (12-20); Bilirubin,Total 1.4 mg/dL (0.3-1.2); Blood Urea Nitrogen 14 mg/dL (9-23); Calcium 8.8 mg/dL (8.3-10.6); Calcium (Corrected) 9.0 mg/dL (8.5-10.1); Carbon Dioxide 23.5 mMol/L (20.0-31.0); Chloride 109 mMol/L (98-107); Creatinine (Component) 1.0 mg/dL (0.6-1.3); Globulin 2.1 gm/dL (2.3-3.5); Glucose 104 mg/dL (74-106); Osmolality,Calculated 283 (275-295); Potassium 3.7 mMol/L (3.4-5.1); Sodium 142 mMol/L (136-145); Total Protein 5.8 gm/dL (5.7-8.2); eGFR > 60 See Note
[2024-10-15 17:05] LABS: Carcinoembryonic Antigen 157.0 ng/mL (0.0-5.0)
--- NOTE | 2024-10-20 22:56 | CTCFLWUP_ITS ---
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 Her history includes a 2000 heart attack with current ejection fraction of 45-50%. Recent Jose testing showed elevated ctDNA level of 190, indicating disease progression. Previous treatments included radiation therapy, FOLFIRI (discontinued due to palpitations), capecitabine, Lonsurf with Avastin, and Stivarga with irinotecan (caused severe diarrhea requiring hospitalization). Treatment plan includes restarting Lonsurf and Avastin with supportive medications for side effects, administering loperamide , and monitoring cardiac function during treatment. 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 She has a history of a heart attack in 2000 and has undergone various treatments for her cancer. The patient's cancer appears to be progressing rapidly, as evidenced by recent Jose testing showing a high ctDNA level of 190. She has previously undergone radiation therapy, with 6 treatments total, 3 on each side. Her cancer is characterized by NRAS mutation, positive BRAF mutation, and PDL1-negative normal mmR. Arlen has experienced difficulties with various treatment regimens. She was unable to tolerate FOLFIRI due to palpitations and nausea. In 2020, she had her ICD activated twice and was unable to tolerate Babbage, Kosykin, and Claude. A CT scan at that time showed progression of pulmonary mets. She also experienced acute hematocrit and constant angioplasty. The patient's treatment history includes capecitabine, which was discontinued due to concerns about causing a heart attack. She was then started on Lonsurf and Avastin in 2021, which initially showed some improvement but was later discontinued. In November 2022, she was started on Stivarga and irinotecan, which caused severe diarrhea and a decrease in white blood cell count, leading to hospitalization. Regarding her cardiac function, rAlen's current ejection fraction is 45-50%, which is lower than the normal 60%. She reports taking six pills in the morning for her heart condition and has had a stent placed. The patient expresses a strong desire to avoid further hospitalizations. Arlen mentions experiencing nausea during previous treatments. He states that Benadryl and Zofran were the only medications given to him before her recent hospitalization, and she believes the Benadryl negatively affected her. She reports tolerating her initial 6 months of chemotherapy without requiring additional medications for side effects. Medications and Supplements - Lonsurf - Previously taken with Avastin. Stopped in November 2022. - Being considered for restarting. - Avastin - Previously taken with Lonsurf. - Stivarga - Irinotecan - Caused severe diarrhea and lowered white blood cell count. - Capecitabine - Discontinued due to concerns about causing a heart attack. - Benadryl - Given as a shot before hospitalization. - Zofran - Given before hospitalization. Review of Systems Cardiovascular: Negative for palpitations. Gastrointestinal: Positive for severe diarrhea. Objective: Laboratory, Imaging, and Diagnostic Test Results - Jose testing (blood test): - ctDNA: 190 (significantly elevated; typical patient range 0.1-10) - Echocardiogram: - Ejection fraction: 45-50% (normal is 60%) - CT scan: - Showed progression of pulmonary metastases - MRI: - Revealed 5FU and BRAF mutations - Genetic testing: - NRAS mutation: Positive - BRAF mutation: Positive - PDL1: Negative - MMR: Normal - EKG (2018): - Heart rate: 55 bpm ONCOLOGY HISTORY:?[facility] Oncology Hx? DIAGNOSIS: Malignant neoplasm of rectum [ICD10] C20 DATE OF DIAGNOSIS: 08/03/2017 STAGE/TNM: Stage 4 TREATMENT HISTORY: Care?Plan Start?Date Cycle Day Intent mFOLFOX-6?+?Bevacizumab?5?mg/kg 01/22/2018 1 14 Palliative FOLFIRI?+?Bevacizumab?5mg/kg 11/17/2021 2 14 Palliative Bevacizumab?5mg/kg 01/03/2022 1 28 Palliative Cetux+Irinotecan 11/28/2022 1 14 Palliative Cetux+?Irinotecan 12/08/2022 1 14 Palliative?(other) Bevacizumab?10?mg/kg?-?Met 09/25/2024 1 28 Palliative HISTORY OF PRESENT ILLNESS: Arlen Valdovinos is a 63-year-old male with history of hypertension has been having rectal bleeding for last few months. 08/03/2017: Patient had a colonoscopy which showed a rectal mass. Biopsies taken from this mass showed moderately differentiated adenocarcinoma. 09/20/2017: Patient was seen by Dr. Rui Solorzano who performed a rectosigmoidectomy and coloproctostomy. Surgical pathology specimen showed 4.1 cm moderately to poorly differentiated invasive adenocarcinoma invading through the muscularis propria into pericolonic fat. Tumor is localized to the rectum. Perineural invasion was identified. Lymphovascular invasion was negative. 1 out of 15 lymph nodes were positive for metastatic disease with large deposit measuring 8 mm in size. MMR testing showed intact proteins. His postoperative course was uneventful. 11/16/2017: Patient is in the clinic today for initial consultation. CEA 29.2. PET CT scan requested. 12/08/2017: Patient had PET CT scan done which showed a 12 mm hypermetabolic focus in the right lobe of the liver with an SUV of 4.68. 12/13/2017: CT scan of the chest abdomen and pelvis with IV contrast was obtained which showed multiple small bilateral noncalcified pulmonary nodules worrisome for pulmonary metastatic nodular disease as well as a 21 mm ringlike enhancing lesion corresponding to the hypermetabolic poor focus noted on the PET CT scan and 4 small solid right lobe liver lesions consistent with hepatic metastasis is also noted. 01/12/2018: Ultrasound-guided biopsy of the liver lesion? Arlen Valdovinos is a 63-year-old male with history of hypertension has been having rectal bleeding for last few months. 08/03/2017: Patient had a colonoscopy which showed a rectal mass. Biopsies taken from this mass showed moderately differentiated adenocarcinoma. 09/20/2017: Patient was seen by Dr. Rui Solorzano who performed a rectosigmoidectomy and coloproctostomy. Surgical pathology specimen showed 4.1 cm moderately to poorly differentiated invasive adenocarcinoma invading through the muscularis propria into pericolonic fat. Tumor is localized to the rectum. Perineural invasion was identified. Lymphovascular invasion was negative. 1 out of 15 lymph nodes were positive for metastatic disease with large deposit measuring 8 mm in size. MMR testing showed intact proteins. His postoperative course was uneventful. 11/16/2017: Patient is in the clinic today for initial consultation. CEA 29.2. PET CT scan requested. 12/08/2017: Patient had PET CT scan done which showed a 12 mm hypermetabolic focus in the right lobe of the liver with an SUV of 4.68. 12/13/2017: CT scan of the chest abdomen and pelvis with IV contrast was obtained which showed multiple small bilateral noncalcified pulmonary nodules worrisome for pulmonary metastatic nodular disease as well as a 21 mm ringlike enhancing lesion corresponding to the hypermetabolic poor focus noted on the PET CT scan and 4 small solid right lobe liver lesions consistent with hepatic metastasis is also noted. 01/12/2018: Ultrasound-guided biopsy of the liver lesion- 01/22/2018-07/16/2018: Patient received 11 doses (cycle 5-day 1) FOLFOX plus Avastin. 08/04/2018: PET CT scan-negative for metastatic disease 02/07/2018: CEA 40.9 09/04/2018 CEA 0.6 09/10/2018: Patient is started on maintenance capecitabine 2 g in the morning and 1.5 grams in the evening on days 1 through 14 followed by 7 days rest. 05/22/2019: CEA less than 0.5. 06/14/2019: PET CT scan-negative for metastatic disease. 11/09/2019: PET CT scan- 11/18/2019: CT scan of the chest, abdomen and pelvis with IV contrast- 06/17/2020: CEA 0.8. 07/08/2020: CT scan of the chest, abdomen and pelvis with IV contrast- 09/30/2020: Mr. Valdovinos had acute anterior myocardial infarction. He had stent angioplasty of LAD done. Patient stopped taking capecitabine. 01/01/2022: CT scan of the chest abdomen and pelvis with IV contrast- 04/22/2021: CT scan of the chest abdomen and pelvis with IV contrast 11/01/21: CEA 1.4 11/22/2021: CT scan of the chest abdomen and pelvis with IV contrast 12/13/2021: Patient received cycle 1 day 1 of FOLFIRI and bevacizumab. Unfortunately he had significant nausea lasting for more than 1 week. He also had palpitations. He is ICD was activated twice. 02/07/2022: Mr. Valdovinos is started on Lonsurf and bevacizumab. 11/21/2022: CT scan of the chest abdomen and pelvis with IV contrast- 11/28/2022: Lonsurf and bevacizumab discontinued due to progression. 12/08/2022: Patient received first dose of Camptosar. Unfortunately he developed severe diarrhea a few days later requiring him to be admitted to the hospital for dehydration. Patient received IV fluids as well as Lomotil during the hospital stay. 01/11/2023: Lonsurf restarted at patient's request. Mr. Valdovinos stated that he did not follow the instructions on Lonsurf prescription properly in the past. 04/11/2023: CT scan of the chest abdomen pelvis with IV contrast- 07/19/2023: CT scan of the chest abdomen and pelvis with IV contrast 01/22/2018?07/16/2018: Patient received 11 doses (cycle 5-day 1) FOLFOX plus Avastin. 08/04/2018: PET CT scan?negative for metastatic disease 02/07/2018: CEA 40.9 09/04/2018 CEA 0.6 09/10/2018: Patient is started on maintenance capecitabine 2 g in the morning and 1.5 grams in the evening on days 1 through 14 followed by 7 days rest. 05/22/2019: CEA less than 0.5. 06/14/2019: PET CT scan?negative for metastatic disease. 11/09/2019: PET CT scan? 11/18/2019: CT scan of the chest, abdomen and pelvis with IV contrast? 06/17/2020: CEA 0.8. 07/08/2020: CT scan of the chest, abdomen and pelvis with IV contrast? 09/30/2020: Mr. Valdovinos had acute anterior myocardial infarction. He had stent angioplasty of LAD done. Patient stopped taking capecitabine. 01/01/2022: CT scan of the chest abdomen and pelvis with IV contrast? 04/22/2021: CT scan of the chest abdomen and pelvis with IV contrast 11/01/21: CEA 1.4 11/22/2021: CT scan of the chest abdomen and pelvis with IV contrast 12/13/2021: Patient received cycle 1 day 1 of FOLFIRI and bevacizumab. Unfortunately he had significant nausea lasting for more than 1 week. He also had palpitations. He is ICD was activated twice. 02/07/2022: Mr. Valdovinos is started on Lonsurf and bevacizumab. 11/21/2022: CT scan of the chest abdomen and pelvis with IV contrast? 11/28/2022: Lonsurf and bevacizumab discontinued due to progression. 12/08/2022: Patient received first dose of Camptosar. Unfortunately he developed severe diarrhea a few days later requiring him to be admitted to the hospital for dehydration. Patient received IV fluids as well as Lomotil during the hospital stay. 01/11/2023: Lonsurf restarted at patient's request. Mr. Valdovinos stated that he did not follow the instructions on Lonsurf prescription properly in the past. 04/11/2023: CT scan of the chest abdomen pelvis with IV contrast? 07/19/2023: CT scan of the chest abdomen and pelvis with IV contrast OTHER MEDICAL HISTORY/CONDITIONS: FAMILY HISTORY: ?[facility] Family Hx? SOCIAL HISTORY: MEDICATIONS: 1. aspirin - 81 mg 1 tab Every other day 2. atorvastatin - 80 mg 1 tab Daily 3. Brilinta - 60 mg 1 tab Twice a Day 4. carvedilol - 6.25 mg 1 tab Twice a Day 5. Entresto - 49-51 mg 1 tab Twice a Day 6. ezetimibe - 10 mg 1 tab Daily 7. Lonsurf - 15-6.14 mg 35 mg/m*2 71.8 mg twice Daily 8. Lonsurf - 20-8.19 mg 2 tab twice daily 9. Lonsurf - 20-8.19 mg 2 tab Twice a Day 10. Lonsurf - 15-6.14 mg 2 tab Twice a Day?Palabra Meds? Medications Last Reconciled by Irlanda Brito MD on 10/16/2024 ALLERGIES: No Known Drug Allergies REVIEW OF SYSTEMS: A complete 14-point review of systems was performed and is negative except as noted in interval history. PHYSICAL EXAMINATION:?[facility] PE? VITAL SIGNS: Temperature?97.5, B/P?114/74, Oxygen?Saturation?96% Weight?199?lbs (Change?since?10/15/24:?-0.4?lbs) PAIN: 0 - No pain ECOG Performance Status: 0 - Asymptomatic and fully active GENERAL APPEARANCE: Appears well, in no apparent distress, appropriately interactive. HEENT: Normocephalic, no temporal wasting, normal conjunctiva, no scleral icterus, normal hearing, lips without lesions, neck normal range of motion. CARDIOVASCULAR: Not assessed. PULMONARY: Normal respiratory effort, no respiratory distress or use of accessory muscles, speaking in full sentences, no tachypnea. EXTREMITIES: No pedal edema or cyanosis. SKIN: Normal skin appearance. NEUROLOGIC: Alert and oriented x4. PSHYCHIATRIC: Appropriate affect, mood normal, behavior normal, intact thought and speech. LABORATORY DATA: I have personally reviewed and interpreted each of the patient?s relevant lab tests, abnormal findings are below: Date 10/08/24 10/15/24 ??WHITE?BLOOD?COUNT?(Thou/mm3) ? 4.2 ??RED?BLOOD?COUNT?(Miln/mm3) ? 3.74?L ??HEMOGLOBIN?(gm/dl) ? 12.7?L ??HEMATOCRIT?(%) ? 35.5?L ??PLATELET?COUNT?(Thou/mm3) ? 153 ??NEUTROPHILS?%,?AUTO?(%) ? 67 ??LYMPH?%,?AUTO?(%) ? 18 ??NEUTROPHILS,?AUTO?(Thou/mm3) ? 2.8 ??GLUCOSE,RANDOM?(mg/dL) 94 104 ??BLOOD?UREA?NITROGEN?(mg/dL) 14 14 ??CREATININE?(mg/dL) 1.10 1.00 ??SODIUM?(mmol/L) 140 142 ??POTASSIUM?(mmol/L) 4.4 3.7 ??CHLORIDE?(mmol/L) 106 109?H ??CrCl?(CandG)?(ml/min) 73.16 80.75 ??AST/SGOT?(Unit/L) 22 19 ??ALT/SGPT?(Unit/L) 17 14 ??ALKALINE?PHOSPHATASE?(Unit/L) 169?H 143?H ??BILIRUBIN,?TOTAL?(mg/dL) 1.5?H 1.4?H ??PROTEIN?TOTAL?(gm/dl) 6.3 5.8 ??ALBUMIN,?SERUM?(gm/dl) 4.2 3.7 ??GLOBULIN?(gm/dl) 2.1?L 2.1?L ??ALBUMIN/GLOBULIN?RATIO 2.0 1.8 ??CALCIUM,?SERUM?(mg/dL) 9.6 8.8 ??CALCIUM?SERUM?(CORRECTED)?(mg/dL) 9.6 9.0 ??CEA?(O*)?(ng/ml) ? 157.0?H ASSESSMENT/PLAN:?SigifredoMaurimary Eliu Assessment/Plan? stage IV rectal adenocarcinoma with liver lesions as well as pulmonary lesions. N-SOSA mutation positive, B-Giacomo mutation positive, PDL 1 expression negative and normal MMR protein expression by IHC Recent CT scan of the chest abdomen pelvis showed progression of his disease as documented above. The patient continues to remain asymptomatic without any cough, shortness of breath or chest pain. His cancer has progressed on Lonsurf. Lonsurf was restarted on 01/11/2023 Patient received one cycle of Camptosar. He denies any further diarrhea. He still has mild loss of taste. Mr. Valdovinos is stating now that he has missed multiple doses many times of the Lonsurf. He does not Patient had first dose of Camptosar on 12/08/2022. Mr. Valdovinos decided not to take cetuximab due to side effects. Unfortunately he developed severe diarrhea few days later. He was admitted to the hospital because of dehydration. Recent CT scan of the CAP- showed progression of his pulmonary metastatic disease. Tolerating Lonsurf and bevacizumab well without any significant side effects. Unable to tolerate FOLFIRI plus bevacizumab. (12/13/2021) which caused significant nausea, palpitations. It also caused the ICD to be activated twice. He had pacemaker/defibrillator placed January 11, 2021 the patient had acute myocardial infarction as described above requiring to have stent angioplasty of LAD on 09/30/2020. He stopped taking capecitabine after the SC. Recent Jose testing revealed extremely high ctDNA levels of 190, indicating aggressive disease progression. Genetic testing shows NRAS mutation positive, BRAF mutation positive, and PDL1-negative normal mmR. CT scan demonstrates progression of pulmonary metastases. Patient has a history of heart issues, with current ejection fraction of 45-50% (normal being 60%). Previous treatments include FOLFIRI (not tolerated due to palpitations and nausea), capecitabine (discontinued due to suspected cardiac issues), Lonsurf with Avastin (initially showed improvement, then discontinued), and Stivarga with irinotecan (caused severe diarrhea and decreased white cell count). Continue Lonsurf and Avastin combination therapy - Provide anti-nausea medication and atropine for potential side effects - Administer lloperamide - Consider IV fluids in the clinic if needed - Monitor for treatment response and side effects ss potential future treatments if Lonsurf and Avastin are ineffective: - Regorafenib - Gemcitabine and cisplatin combination - Single-agent gemcitabine - Schedule follow-up to assess treatment efficacy and tolerability Cardiac Function Assessment: Patient has a history of heart attack in September 2000 and current ejection fraction of 45-50%. There is uncertainty about whether the reduced ejection fraction is due to chemotherapy effects or pre-existing condition, as there is no documented baseline echocardiogram prior to chemotherapy initiation. Patient has an implanted cardiac device (ICD) which has been activated twice in 2020. EKG from 2018 showed a low heart rate of 55, suggesting pre-existing cardiac issues. 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 Hart) to clarify cardiac history and current status - Continue current cardiac medications as prescribed - Monitor cardiac function during cancer treatment ORDERS: Order # Description [id number] Comprehensive Metabolic Panel + CBC with Auto Diff + CEA + Urinalysis, Automated with Microscopy [id number] Follow Up Appointment [id number] Infusion 1 Hour [id number] Infusion 1 Hour [id number] Comprehensive Metabolic Panel + CBC with Auto Diff + CEA + Urinalysis, Automated with Microscopy [id number] Follow Up Appointment [id number] Infusion 1 Hour [id number] Infusion 1 Hour [id number] Comprehensive Metabolic Panel + CBC with Auto Diff + CEA + Urinalysis, Automated with Microscopy [id number] Follow Up Appointment [id number] Infusion 1 Hour [id number] Infusion 1 Hour [id number] Comprehensive Metabolic Panel + CBC with Auto Diff + CEA + Urinalysis, Automated with Microscopy [id number] Follow Up Appointment [id number] Infusion 1 Hour [id number] Infusion 1 Hour [id number] Comprehensive Metabolic Panel + CBC with Auto Diff + CEA + Urinalysis, Automated with Microscopy [id number] Follow Up Appointment [id number] Infusion 1 Hour [id number] Infusion 1 Hour [id number] Comprehensive Metabolic Panel + CBC with Auto Diff + CEA + Urinalysis, Automated with Microscopy [id number] Follow Up Appointment RETURN TO CLINIC: I reviewed the diagnosis, prognosis, and recommended treatment/procedure options with the patient (and/or their legal patient service representative), including the potential benefits, risks, side effects and alternative therapies. We also discussed the option of no treatment and the possibility of clinical trial participation, if applicable. All questions were addressed, and they demonstrated understanding. They provided informed consent to proceed with the proposed plan of care. BILLING AND COMPLIANCE: I reviewed external records from providers outside my specialty as summarized above. I spent a total of 50 minutes on this patient?s care on the day of their visit excluding time spent related to any billed procedures. This time includes time spent with the patient as well as time spent documenting in the medical record, reviewing patients records and tests, obtaining history, placing orders, communicating with other healthcare professionals, counseling the patient, family or caregiver, and/or care coordination for the diagnoses above. Electronically Signed by: Enzo Nowak MD T: 10:53 PM CC: Rui?Rashad? PCP: David Valdez Referring: David Valdez This document was completed utilizing speech recognition software. Grammatical errors, random word insertions, pronoun errors, and incomplete sentences are an occasional consequence of this system due to software limitations, ambient noise, and hardware issues. Any formal questions or concerns about the content, text or information contained within the body of this dictation should be directly addressed to the provider for clarification.
[2024-10-22 15:58] LABS: Collection Type, Urine Voided; RBC,Urine 0 /hpf (0-3); Squamous Epithelial Cell,Urine 0 /hpf (0-5)
[2024-10-22 16:02] LABS: Basophils # (Auto) 0.0 Thou/mm3 (0.0-0.2); Basophils % (Auto) 1 % (0-2.5); Eosinophils # (Auto) 0.2 Thou/mm3 (0.0-0.5); Eosinophils % (Auto) 5 % (0-10); Hematocrit 41.3 % (41.0-53.0); Hemoglobin 14.7 g/dL (13.5-16.0); Immature Granulocytes Auto 0.01 Thou/mm3 (0.00-0.00); Lymphocytes # (Auto) 0.6 Thou/mm3 (1.0-4.8); Lymphocytes % (Auto) 17 % (10-50); Mean Corpuscular HGB Conc 35.6 g/dl (31.0-37.0); Mean Corpuscular Hemoglobin 33.8 pg (25.0-35.0); Mean Corpuscular Volume 95 fL (80-100); Monocytes # (Auto) 0.5 Thou/mm3 (0.0-0.8); Monocytes % (Auto) 14 % (0-12); Neutrophils # (Auto) 2.3 Thou/mm3 (1.8-7.7); Neutrophils % (Auto) 64 % (37-80); Nucleated Red Blood Cell # 0.00 Thou/mm3 (0.00-0.00); Nucleated Red Blood Cell % 0 /100 WBC (0); Platelet Count 203 Thou/mm3 (140-440); RDW Standard Deviation 49.2 fL (35.1-43.9); Red Blood Count 4.35 Miln/mm3 (4.50-5.90); White Blood Count 3.6 Thou/mm3 (3.8-10.6)
[2024-10-22 16:07] LABS: Bilirubin,Urine Negative (Negative); Blood,Urine Negative (Negative); Clarity,Urine Clear (Clear/Hazy); Color,Urine Colorless (Lt Yel-Yel); Glucose, Urine Negative (Negative); Ketones,Urine Negative (Negative); Leukocyte Esterase,Urine Negative (Negative); Nitrite,Urine Negative (Negative); PH,Urine 5.5 (5.0-7.0); Protein,Urine Negative (Neg - Trace); Specific Gravity,Urine 1.005 (1.001-1.035); Urobilinogen,Urine Negative mg/dL (0.0-1.0); WBC,Urine < 1 /hpf (0-5)
[2024-10-22 16:21] LABS: Alanine Aminotransferase 22 U/L (10-49); Albumin, Serum 4.3 gm/dL (3.4-4.8); Albumin/Globulin Ratio 1.7 (1.2-2.2); Alkaline Phosphatase 178 U/L (46-116); Anion Gap 10 (7-16); Aspartate Amino Transferase 23 U/L (0-34); BUN/Creatinine Ratio 10 Ratio (12-20); Bilirubin,Total 2.2 mg/dL (0.3-1.2); Blood Urea Nitrogen 10 mg/dL (9-23); Calcium 9.2 mg/dL (8.3-10.6); Calcium (Corrected) 9.2 mg/dL (8.5-10.1); Carbon Dioxide 24.6 mMol/L (20.0-31.0); Chloride 106 mMol/L (98-107); Creatinine (Component) 1.0 mg/dL (0.6-1.3); Globulin 2.5 gm/dL (2.3-3.5); Glucose 91 mg/dL (74-106); Osmolality,Calculated 280 (275-295); Potassium 4.1 mMol/L (3.4-5.1); Sodium 141 mMol/L (136-145); Total Protein 6.8 gm/dL (5.7-8.2); eGFR > 60 See Note
[2024-10-22 16:47] LABS: Carcinoembryonic Antigen 178.1 ng/mL (0.0-5.0)
[2024-11-05 09:40] LABS: Collection Type, Urine Voided; Squamous Epithelial Cell,Urine 0 /hpf (0-5)
[2024-11-05 09:50] LABS: Basophils # (Auto) 0.0 Thou/mm3 (0.0-0.2); Basophils % (Auto) 1 % (0-2.5); Eosinophils # (Auto) 0.2 Thou/mm3 (0.0-0.5); Eosinophils % (Auto) 3 % (0-10); Hematocrit 40.3 % (41.0-53.0); Hemoglobin 14.1 g/dL (13.5-16.0); Immature Granulocytes Auto 0.01 Thou/mm3 (0.00-0.00); Lymphocytes # (Auto) 0.9 Thou/mm3 (1.0-4.8); Lymphocytes % (Auto) 17 % (10-50); Mean Corpuscular HGB Conc 35.0 g/dl (31.0-37.0); Mean Corpuscular Hemoglobin 33.5 pg (25.0-35.0); Mean Corpuscular Volume 96 fL (80-100); Monocytes # (Auto) 0.7 Thou/mm3 (0.0-0.8); Monocytes % (Auto) 13 % (0-12); Neutrophils # (Auto) 3.5 Thou/mm3 (1.8-7.7); Neutrophils % (Auto) 66 % (37-80); Nucleated Red Blood Cell # 0.00 Thou/mm3 (0.00-0.00); Nucleated Red Blood Cell % 0 /100 WBC (0); Platelet Count 146 Thou/mm3 (140-440); RDW Standard Deviation 52.3 fL (35.1-43.9); Red Blood Count 4.21 Miln/mm3 (4.50-5.90); White Blood Count 5.3 Thou/mm3 (3.8-10.6)
[2024-11-05 10:06] LABS: Bilirubin,Urine Negative (Negative); Blood,Urine Negative (Negative); Clarity,Urine Clear (Clear/Hazy); Color,Urine Lt-Yellow (Lt Yel-Yel); Glucose, Urine Negative (Negative); Ketones,Urine Negative (Negative); Leukocyte Esterase,Urine Negative (Negative); Nitrite,Urine Negative (Negative); PH,Urine 5.5 (5.0-7.0); Protein,Urine Negative (Neg - Trace); RBC,Urine 1 /hpf (0-3); Specific Gravity,Urine 1.025 (1.001-1.035); Urobilinogen,Urine Negative mg/dL (0.0-1.0); WBC,Urine 1 /hpf (0-5)
[2024-11-05 10:18] LABS: Alanine Aminotransferase 15 U/L (10-49); Albumin, Serum 4.3 gm/dL (3.4-4.8); Albumin/Globulin Ratio 1.9 (1.2-2.2); Alkaline Phosphatase 154 U/L (46-116); Anion Gap 9 (7-16); Aspartate Amino Transferase 22 U/L (0-34); BUN/Creatinine Ratio 13 Ratio (12-20); Bilirubin,Total 1.2 mg/dL (0.3-1.2); Blood Urea Nitrogen 13 mg/dL (9-23); Calcium 9.4 mg/dL (8.3-10.6); Calcium (Corrected) 9.4 mg/dL (8.5-10.1); Carbon Dioxide 23.7 mMol/L (20.0-31.0); Chloride 106 mMol/L (98-107); Creatinine (Component) 1.0 mg/dL (0.6-1.3); Globulin 2.3 gm/dL (2.3-3.5); Glucose 102 mg/dL (74-106); Osmolality,Calculated 277 (275-295); Potassium 4.3 mMol/L (3.4-5.1); Sodium 139 mMol/L (136-145); Total Protein 6.6 gm/dL (5.7-8.2); eGFR > 60 See Note
[2024-11-05 10:31] LABS: Carcinoembryonic Antigen 267.5 ng/mL (0.0-5.0)
== END 2024-11-12 23:59 | disposition home or self-care (01) ==
LOC: SCTC 07:12
PROVIDERS: PCP Family Medicine; Referring Provider Family Medicine; Visit Provider Internal Medicine Hematology & Oncology
DX: Z51.11 Encounter for antineoplastic chemotherapy (principal); C20 Malignant neoplasm of rectum; C78.02 Secondary malignant neoplasm of left lung; C78.01 Secondary malignant neoplasm of right lung; C78.7 Secondary malignant neoplasm of liver and intrahepatic bile duct; I25.2 Old myocardial infarction
CPT/HCPCS: 36591; 80053; 81001; 82378; 85025; 96413; 99212; A4216; J1642; J3490; J7040; Q5126; G0463

== ENCOUNTER → 2024-11-14 | Outpatient (CLI) | payer MEDICARE, MEDICAID, SELFPAY ==
--- NOTE | 2024-11-14 09:30 | XR_ITS ---
Examination: CT chest with intravenous contrast CT abdomen with intravenous contrast CT pelvis with intravenous contrast CT chest without intravenous contrast CT abdomen without intravenous contrast CT pelvis without intravenous contrast 2-D coronal and sagittal reconstructions Time of exam: November 14, 2024, 0918 hours, comparison CT chest abdomen pelvis March 15, 2024, CT chest abdomen pelvis November 08, 2023, CT chest abdomen pelvis July 19, 2023 INDICATIONS: Diagnosis malignant neoplasm rectum, currently undergoing chemotherapy for liver and lung metastases restaging CTDI: vol (mGy) : 29.6 DLP: (mGycm): 1603 Technique: Multiple axial images of the chest, abdomen and pelvis with intravenous contrast, 3.0 mm slice thickness. Images obtained post intravenous injection Isovue 370 60 cc. 2-D sagittal and coronal reconstructions. Low dose protocols were performed. One or more of the following dose reduction techniques were used; automated exposure control, adjustment of the mA and/or KV according to patient size, use of iterative reconstruction technique. Findings: No thoracic aortic aneurysm dilatation Pulmonary artery segments are not enlarged No pulmonary artery emboli on this non-CTA study No paratracheal tracheobronchial or bronchopulmonary adenopathy Left lower lobe pulmonary nodule measures 11 mm compared to 11 mm on the prior study Right lower lobe pulmonary nodules, 11 mm compared to 11 mm on the prior study and 21 mm compared to 21 mm on the prior study No new pulmonary nodules No pneumonia or pulmonary edema No interval liver or splenic lesion Contracted gallbladder No pancreatic or adrenal mass Moderate renal scar formation, no hydronephrosis Aorta normal size No interval abdominal or pelvic lymphadenopathy. Normal appendix Rectosigmoid sutures No perirectal lymphadenopathy No rectosigmoid or colonic tumor noted on this study Moderate osteopenia No interval osseous metastatic disease IMPRESSION: No change in size of bilateral metastatic pulmonary nodules, no new pulmonary nodules No interval mediastinal lymphadenopathy No interval liver or splenic lesions No interval abdominal or pelvic lymphadenopathy
== END | disposition home or self-care (01) ==
LOC: SCAT 08:33
PROVIDERS: PCP Nurse Practitioner; Referring Provider Internal Medicine Hematology & Oncology; Visit Provider Internal Medicine Hematology & Oncology
DX: C20 Malignant neoplasm of rectum (principal); C78.00 Secondary malignant neoplasm of unspecified lung
CPT/HCPCS: 71270; 74178; A4649; Q9967

== ENCOUNTER 2024-12-02 12:19 | Emergency (ER) | payer MEDICARE, MEDICAID, SELFPAY ==
[2024-12-02 12:19] VITALS: BMI 30.5
[2024-12-02 13:06] VITALS: BP 110/73; PULSE 67; RESP 20; TEMP 36.7; O2SAT 95
--- NOTE | 2024-12-02 13:18 | EDNOTE_ITS ---
Lower Extremity Injury RME/HPI General Chief Complaint: Hip Injury/Pain Stated Complaint: LEFT HIP/KNEE PAIN Time Seen by Provider: 12/02/24 12:35 Arrival date/time: 12/02/24 12:19 This is a case of 64-year-old male with history of IA on blood thinner cancer came in in the emergency room due to left hip pain and left knee pain chronic in nature worse today patient went to his primary care physician and was sent here for pain control patient denies any injury or trauma denies any numbness weakness or tingling sensation persistence of the symptoms thus patient decided to sought consult here in the emergency room Limitations: no limitations Related Data Home Medications ?Medication ?Instructions ?Recorded ?Confirmed gabapentin 100 mg capsule 100 mg PO TID 01/03/1801/12 acetaminophen 300 mg-codeine 30 mg 1 tab PO Q6H PRN Pa in 01/11/18 01/12/18 tablet Previous Rx's ?Medication ?Instructions ?Recorded tramadol 50 mg tablet 50 mg PO Q6H PRN pain #16 ta bs 12/02/24 Allergies Allergy/AdvReac Type Severity Reaction Status Date / Time No Known Allergies Allergy Verified 12/02/24 12:22 Review of Systems Review of Systems Systems Reviewed: All systems reviewed, normal except as documented Constitutional Constitutional: Reports system reviewed and no additional complaints, except as documented and Reports as per HPI Cardiovascular Cardiovascular: Reports system reviewed and no additional complaints, except as documented and Reports as per HPI Respiratory Respiratory: Reports system reviewed and no additional complaints, except as documented and Reports as per HPI Gastrointestinal Gastrointestinal: Reports system reviewed and no additional complaints, except as documented and Reports as per HPI Musculoskeletal Musculoskeletal: Reports system reviewed and no additional complaints, except as documented and Reports as per HPI Neurologic Neurologic: Reports system reviewed and no additional complaints, except as documented and Reports as per HPI Past Medical History Past Medical History NEUROLOGIC: Negative Neurological Disorders or Seizures CARDIAC: Positive Cardiac Disorders, Myocardial Infarction and Hypertension; Negative Congestive Heart Failure RESPIRATORY: Positive Pneumonia; Negative Chronic Obstructive Pulmonary Disease (COPD) GASTROINTESTINAL: Positive Gastrointestinal Disorders, Colorectal Cancer and Gastroesophageal Reflux Disease GENITOURINARY: Negative Genitourinary Disorders or Renal Disease MUSCULOSKELETAL: Positive Musculoskeletal Disorders, Degenerative Disk Disease a nd Fractures ENDOCRINE: Negative Endocrine Disorders, Diabetes Mellitus Type 1 or Diabetes Mellitus Type 2 HEMATOLOGIC: Negative Blood Disorders OTHER HISTORY: Positive Hospitalization, Chemotherapy, Radiation Therapy, Chicken Pox and Colorectal Cancer; Negative Autoimmune Disease, Shingles, Falls, Blood Transfusions, Blood Transfusion Reaction or Anesthesia Reactions Family History FAMILY HISTORY: Positive Family Respiratory Disorders, Family Cardiac Disorders, Family Gastrointestinal Problems, Family Cancer and Family Surgery; Negative Family Psychiatric Problems or Family Anesthesia Reaction Surgical History SURGICAL: Positive Cardiac Surgery, Coronary Stent, Cardiac Catheterization, Pacemaker and Bowel Surgery; Negative Abdominal Surgery Social History SMOKING STATUS: Former smoker ED Exam General Limitations: Present no limitations General appearance: Present alert, in no apparent distress and other (Patient is awake alert oriented not in distress nontoxic looking well-hydrated well- nourished) Head Head exam: Present atraumatic, normocephalic and normal inspection Eye Eye exam: Present normal appearance, PERRL and EOMI ENT ENT exam: Present normal exam, normal oropharynx and mucous membranes moist Neck Neck exam: Present normal inspection, full ROM and trachea midline; Absent tenderness, meningismus, lymphadenopathy or thyromegaly Chest Chest inspection: Present normal inspection and symmetric chest wall rise; Absent tenderness Respiratory Respiratory exam: Present normal lung sounds bilaterally; Absent respiratory distress, wheezes, stridor, accessory muscle use or prolonged expiratory phase Cardiovascular Cardiovascular exam: Present regular rate, normal rhythm and normal heart sounds; Absent bradycardia, tachycardia, irregular rhythm, systolic murmur or diastolic murmur Abdominal Exam Abdominal exam: Present soft and normal bowel sounds; Absent distention, tenderness, guarding, rebound, rigidity, diminished bowel sounds, hyperactive bowel sounds, hypoactive bowel sounds, organomegaly or trauma Extremities Exam Extremities exam: Present normal inspection and full ROM Expanded Lower Extremity Exam Hip/Pelvis exam: Present tenderness, swelling, pelvis stable and other (ROM intact neurovascular intact); Absent abrasion, laceration, ecchymosis, deformity, crepitus, dislocation, erythema, external rotation, internal rotation or shortening Knee exam: Present tenderness, swelling and other (Mild tenderness on the left knee anterior no prepatellar tenderness or swelling no crepitation no deformity ROM is intact negative Mensah signs negative Homans signs no calf tenderness neurovascular intact); Absent abrasion, laceration, ecchymosis, deformity, crepitus, dislocation, erythema, effusion, anterior drawer sign, posterior draw sign, pain with valgus, laxity with valgus, pain with varus, laxity with varus or knee extension intact Back Exam Back exam: Present normal inspection and full ROM; Absent tenderness, CVA tenderness (R), CVA tenderness (L), muscle spasm, paraspinal tenderness, vertebral tenderness, rashes, sciatic notch tenderness (R), sciatic notch tenderness (L), straight leg raise (R) or straight leg raise (L) Neurological Exam Neurological exam: Present alert, oriented X3 and CN II-XII intact Psychiatric Psychiatric exam: Present normal affect and normal mood Skin Skin exam: Present warm, dry, intact and normal color Course Quality Measures none Orders Category Date Time Status Morphine* Inj Med 12/02/24 13:11 Discontinued 4 mg IM X1 ONE Vital Signs Vital signs: Vital Signs Temperature 98.0 F 12/02/24 13:06 Pulse Rate 67 12/02/24 13:06 Respiratory Rate 20 12/02/24 13:06 Blood Pressure 110/73 12/02/24 13:06 Pulse Oximetry (%) 95 12/02/24 13:06 Oxygen Delivery Method Room Air 12/02/24 13:06 Oxygen saturation is 95% in room air Extremity Injury, Lower MDM Narrative MDM Narrative:: This is a case of 64-year-old male with history of IA on blood thinner cancer came in in the emergency room due to left hip pain and left knee pain chronic in nature worse today patient went to his primary care physician and was sent here for pain control patient denies any injury or trauma denies any numbness weakness or tingling sensation persistence of the symptoms thus patient decided to sought consult here in the emergency room physical examination patient is awake alert oriented not in distress nontoxic looking well-hydrated well- nourished there is a moderate tenderness on the left hip and left knee with mild swelling no crepitation no deformity no redness no cellulitis back exam is no rmal leg raises are normal no muscle spasm no paraspinal no paravertebral tenderness ROM is intact pulses were full and equal capillary refill less than 2 seconds sensory is intact no swelling noted no calf tenderness negative Mensah signs negative Homans signs based on my physical examination and history patient symptoms is in chronic nature possible arthritis patient was given morphine here in the emergency room with no side effects noted tolerated well patient was prescribed with tramadol as needed for pain until he will see his pain management doctor for pain control he was also advised to see an orthopedic surgeon for possible MRI to rule out meniscus or ligament injury or osteoarthritis for any worsening symptoms or any emergent concern return precaution here in the emergency room or call 911 Patient was discharged with comfortable condition walking with stable gait. Patient verbalized no further complains explained diagnosis and answered patient question. Patient is comfortable with the proposed management plan including the need to follow up with his/her primary care physician and any specialist if applicable Discussed patient for any urgent condition or worsening sx, He/She needed to go to emergency room immediately or call 911. Patient acknowledge the responsibility to follow up as instructed and to monitor her/his symptoms. For any persistence of the symptoms for more than 3-5 days return precaution advised. Discussed the result of the test and was given printed discharge instruction Patient data External records reviewed:: [facility] previous records Clinical information provided by:: patient Social determinants that could affect healthcare access:: none Patient has the following chronic illnesses:: None How is presenting disease/condition affected by chronic disease/condition?: no chronic disease Evaluation data The following diagnostics were reviewed and interpreted by me:: other (specify) (None) Lab and/or radiology exams considered but not ordered:: None Interpretation Summary: None Medications / Prescriptions Medications or Prescriptions considered but not ordered:: Given Medication administrations:: Medication Administration History Discontinued Medications Morphine Sulfate (Morphine Sulf Inj 4 Mg/Ml Vial) 4 mg IM X1 ONE Stop: 12/02/24 13:12 Given Consultations Consultation(s) initiated? (list below): No Diagnosis Extremity Injury, Lower Differential Diagnosis: other (Osteoarthritis DJD) Most likely diagnosis given after review of the tests above:: Osteoarthritis DJD Admission Indicated Admission indicated?: not indicated Explain why admission is indicated or not indicated:: Not indicated Admission Request Was there a request for admission?: No Disposition Plan Disposition Plan: Discharge Discharge Attestation Discharge Attestation: The patient and all family members were given an opportunity to ask questions and understood the discharge instructions. Discharge instructions specifically effects, indications for sooner follow up or return to the emergency department, and the expected course of current diagnosis. Patient condition: Stable Discharge Plan Plan Patient Disposition: HOME (Self Care) Patient condition on transfer: Stable Prescriptions/Referrals Prescriptions/Med Rec: New tramadol 50 mg tablet 50 mg PO Q6H MDD max 3 tabs per day PRN (Reason: pain) Qty: 16 0RF No Action acetaminophen-codeine 300-30 mg Tablet 1 tab PO Q6H PRN (Reason: Pain) gabapentin 100 mg Capsule 100 mg PO TID Problem List Clinical Impression: Chronic left hip pain, Chronic pain of left knee, Arthritis Patient/Caregiver Discharge Instructions Education Materials: CRUZ Arthritis: Exercise, Knee Pain, Hip Osteoarthritis, ED Chronic Pain Additional Instructions: Follow-up with your primary care physician in 2 days for reevaluation and to be referred to orthopedic surgeon for further evaluation and treatment of your chronic left hip pain and left knee pain for possible MRI to rule out os teoarthritis meniscus or ligament injury he also need to be referred to pain management doctor for pain control recurrence persistent worsening symptoms or any emergent concerns such as numbness weakness tingling sensation return to the emergency room immediately or call 911 take your medication as directed ice pack and warm compress as needed for pain Print Language: Italian Stand Alone Forms: Mireya Award Info., Patient Portal Info Letter PA/MACHINE WORKER Supervising Physician PA/MACHINE WORKER Supervising Physician: Dr. Donis
[2024-12-02] MEDS: MORPHINE SULF INJ 4 MG/ML VIAL IM (14:28)
== END 2024-12-02 16:05 | disposition home or self-care (01) ==
LOC: SERX 14:58
PROVIDERS: Emergency Provider Emergency Medicine
DX: M25.552 Pain in left hip (principal); G89.29 Other chronic pain
CPT/HCPCS: 96372; 99282; J2270

== ENCOUNTER 2024-12-03 14:21 | Emergency (ER) | payer MEDICARE, MEDICAID, SELFPAY ==
[2024-12-03 14:23] VITALS: BMI 30.5
[2024-12-03 14:33] VITALS: BP 128/85; PULSE 79; RESP 20; TEMP 36.6; O2SAT 95
--- NOTE | 2024-12-03 14:49 | XR_ITS ---
EXAMINATION: Lumbar spine 3 views TECHNIQUE: AP lateral: Lateral lower lumbar spine 3 views Date and time: December 03, 2024, 1456 hours, comparison December 12, 2022 INDICATIONS: Injury to the lower back 4 days ago, lower back pain. FINDINGS: Significant osteopenia. No acute lumbar fracture. Moderate lumbar spondylosis. Mild disc narrowing lower 3 lumbar levels IMPRESSION: No acute lumbar fracture
[2024-12-03] MEDS: MORPHINE SULF INJ 4 MG/ML VIAL IM (15:09)
--- NOTE | 2024-12-03 15:21 | EDNOTE_ITS ---
<Statement entered by Lisha Augustin MD - 12/04/24 14:06> As co-signing physician, I was present and available for consult prn. I concur with the plan and care as documented by the midlevel provider. ED Back Injury Pain RME/HPI General Chief Complaint: Back Pain/Injury Stated Complaint: LEFT HIP PAIN Time Seen by Provider: 12/03/24 14:32 Source: patient Arrival date/time: 12/03/24 14:21 64-year-old male with a history of chronic back pain presents to the emergency room with a chief complaint of left-sided hip pain that radiates down his left leg x 3 days Mode of arrival: ambulatory Limitations: no limitations Related Data Home Medications ?Medication ?Instructions ?Recorded ?Confirmed gabapentin 100 mg capsule 100 mg PO TID 01/03/1801/12 acetaminophen 300 mg-codeine 30 mg 1 tab PO Q6H PRN Pa in 01/11/18 01/12/18 tablet Previous Rx's ?Medication ?Instructions ?Recorded tramadol 50 mg tablet 50 mg PO Q6H PRN pain #16 ta bs 12/02/24 Allergies Allergy/AdvReac Type Severity Reaction Status Date / Time No Known Allergies Allergy Verified 12/03/24 14:26 Review of Systems Review of Systems Systems Reviewed: All systems reviewed, normal except as documented Constitutional Constitutional: Reports system reviewed and no additional complaints, except as documented, Denies fatigue, Denies fever(s), Denies headache(s) and Denies weakness Eyes Eyes: Reports system reviewed and no additional complaints, except as documented, Denies blurry vision and Denies change in vision ENT Ears, Nose, Mouth, and Throat: Reports system reviewed and no additional complaints, except as documented, Denies otalgia, Denies headache(s), Denies nasal congestion, Denies throat swelling and Denies vertigo Cardiovascular Cardiovascular: Reports system reviewed and no additional complaints, except as documented, Denies chest pain, Denies dyspnea and Denies dyspnea on exertion Respiratory Respiratory: Reports system reviewed and no additional complaints, except as documented, Denies chest congestion, Denies cough, Denies dyspnea, Denies dyspnea on exertion and Denies wheezing Gastrointestinal Gastrointestinal: Reports system reviewed and no additional complaints, except as documented, Denies abdominal pain, Denies cramping, Denies nausea and Denies vomiting Genitourinary Genitourinary: Reports system reviewed and no additional complaints, except as documented, Denies dysuria and Denies hematuria Musculoskeletal Musculoskeletal: Reports system reviewed and no additional complaints, except as documented and Reports back pain Integumentary/Breasts Skin/Breast: Reports system reviewed and no additional complaints, except as documented and Denies wounds Neurologic Neurologic: Reports system reviewed and no additional complaints, except as documented, Denies confusion, Denies headache(s), Denies lack of coordination, Denies vertigo and Denies weakness Psychiatric Psychiatric: Reports system reviewed and no additional complaints, except as documented, Denies anxiety, Denies confusion, Denies depression, Denies paranoia, Denies suicidal ideation and Denies tactile hallucinations Endocrine Endocrine: Reports system reviewed and no additional complaints, except as documented and Denies fatigue Hematologic/Lymphatic Hematologic/Lymphatic: Reports system reviewed and no additional complaints, except as documented and Denies lymphadenopathy Allergic/Immunologic Allergic/Immunologic: Reports system reviewed and no additional complaints, except as documented, Denies throat swelling, Denies urticaria and Denies wheezing Past Medical History Past Medical History NEUROLOGIC: Negative Neurological Disorders or Seizures CARDIAC: Positive Cardiac Disorders, Myocardial Infarction and Hypertension; Negative Congestive Heart Failure RESPIRATORY: Positive Pneumonia; Negative Chronic Obstructive Pulmonary Disease (COPD) GASTROINTESTINAL: Positive Gastrointestinal Disorders, Colorectal Cancer and Gastroesophageal Reflux Disease GENITOURINARY: Negative Genitourinary Disorders or Renal Disease MUSCULOSKELETAL: Positive Musculoskeletal Disorders, Degenerative Disk Disease and Fractures ENDOCRINE: Negative Endocrine Disorders, Diabetes Mellitus Type 1 or Diabetes Mellitus Type 2 HEMATOLOGIC: Negative Blood Disorders OTHER HISTORY: Positive Hospitalization, Chemotherapy, Radiation Therapy, Chicken Pox and Colorectal Cancer; Negative Autoimmune Disease, Shingles, Falls, Blood Transfusions, Blood Transfusion Reaction or Anesthesia Reactions Family History FAMILY HISTORY: Positive Family Respiratory Disorders, Family Cardiac Disorders, Family Gastrointestinal Problems, Family Cancer and Family Surgery; Negative Family Psychiatric Problems or Family Anesthesia Reaction Surgical History SURGICAL: Positive Cardiac Surgery, Coronary Stent, Cardiac Catheterization, Pacemaker and Bowel Surgery; Negative Abdominal Surgery Social History SMOKING STATUS: Never smoker ED Exam General Limitations: Present no limitations General appearance: Present alert and in no apparent distress Head Head exam: Present atraumatic Eye Eye exam: Present normal appearance, PERRL and EOMI ENT ENT exam: Present normal exam, normal oropharynx and mucous membranes moist Neck Neck exam: Present normal inspection, full ROM and trachea midline Chest Chest inspection: Present normal inspection and symmetric chest wall rise Respiratory Respiratory exam: Present normal lung sounds bilaterally Cardiovascular Cardiovascular exam: Present regular rate, normal rhythm and normal heart sounds Abdominal Exam Abdominal exam: Present soft and normal bowel sounds Extremities Exam Extremities exam: Present normal inspection and full ROM Back Exam Back exam: Present normal inspection, full ROM, vertebral tenderness and sciatic notch tenderness (L) Neurological Exam Neurological exam: Present alert, oriented X3 and CN II-XII intact Psychiatric Psychiatric exam: Present normal affect and normal mood Skin Skin exam: Present warm, dry, intact and normal color Course Quality Measures none Orders Category Date Time Status XR lumbar spine 2-3V Stat Exams 12/03/24 14:49 Completed Morphine* Inj Med 12/03/24 14:49 Discontinued 4 mg IM X1 ONE Vital Signs Vital signs: Vital Signs Temperature 98 F 12/03/24 14:33 Pulse Rate 79 12/03/24 14:33 Respiratory Rate 20 12/03/24 14:33 Blood Pressure 128/85 H 12/03/24 14:33 Pulse Oximetry (%) 95 12/03/24 14:33 Oxygen Delivery Method Room Air 12/03/24 14:33 Back Pain / Injury MDM Narrative MDM Narrative:: 64-year-old male with a history of chronic back pain presents to the emergency room with a chief complaint of left-sided hip pain that radiates down his left leg x 3 days Patient is hemodynamically stable and in no apparent distress Physical examination shows tenderness and pain to the patient's left hip and lumbar back that radiates down his left leg. The findings are consistent with sciatica. An x-ray of the lumbar spine was completed and is negative for any acute fracture or dislocation Patient has a history of chronic back pain and states he is already seeing a chiropractor as well as physical therapy. I spoke to the patient and told him that his next type is to see a college specialist Patient was discharged and educated to follow-up with primary care provider in the next 24 to 48 hours and return to the emergency room for any evidence of worsening signs or symptoms Patient data External records reviewed:: [facility] previous records Clinical information provided by:: patient Social determinants that could affect healthcare access:: none Patient has the following chronic illnesses:: No chronic illness How is presenting disease/condition affected by chronic disease/condition?: no chronic disease Evaluation data The following diagnostics were reviewed and interpreted by me:: lab results and radiology exam(s) Lab and/or radiology exams considered but not ordered:: Labs and radiology exams considered and ordered Interpretation Summary: X-ray lumbar-FINDINGS: Significant osteopenia. No acute lumbar fracture. Moderate lumbar spondylosis. Mild disc narrowing lower 3 lumbar levels IMPRESSION: No acute lumbar fracture Medications / Prescriptions Medications or Prescriptions considered but not ordered:: Medication given Medication administrations:: Medication Administration History Discontinued Medications Morphine Sulfate (Morphine Sulf Inj 4 Mg/Ml Vial) 4 mg IM X1 ONE Stop: 12/03/24 14:50 Last Admin: 12/03/24 15:09 Dose: 4 mg Documented By: OA Medication given Consultations Consultation(s) initiated? (list below): No Diagnosis Differential diagnosis back pain/injury: lumbar radiculopathy, sciatica, strain of lumbar region and discitis Most likely diagnosis given after review of the tests above:: Sciatica Admission Indicated Admission indicated?: not indicated Admission Request Was there a request for admission?: No Disposition Plan Disposition Plan: Discharge Discharge Attestation Discharge Attestation: The patient and all family members were given an opportunity to ask questions and understood the discharge instructions. Discharge instructions specifically effects, indications for sooner follow up or return to the emergency department, and the expected course of current diagnosis. Patient condition: Stable Discharge Plan Plan Patient Disposition: HOME (Self Care) Discharge Disposition comment: Stable Prescriptions/Referrals Prescriptions/Med Rec: No Action acetaminophen-codeine 300-30 mg Tablet 1 tab PO Q6H PRN (Reason: Pain) gabapentin 100 mg Capsule 100 mg PO TID tramadol 50 mg tablet 50 mg PO Q6H MDD max 3 tabs per day PRN (Reason: pain) Qty: 16 0RF Referrals: Rosa Isela Randolph FNP [Primary Care Provider] - In 1 week Problem List Clinical Impression: Sciatica Patient/Caregiver Discharge Instructions Education Materials: ED Sciatica Additional Instructions: Please follow-up with your primary care provider in the next 24 to 48 hours X-ray was negative for any acute fractures or dislocations For any evidence of worsening signs or symptoms return to emergency room immediately Print Language: Namibian Stand Alone Forms: Mireya Award Info., Work/School Release, Patient Portal Info Letter THAIS/ABDOUL Supervising Physician THAIS/ABDOUL Supervising Physician: Dr. Hidalgo
== END 2024-12-03 16:03 | disposition home or self-care (01) ==
PROVIDERS: Emergency Provider Nurse Practitioner Family; PCP Nurse Practitioner
DX: M54.30 Sciatica, unspecified side (principal); M47.816 Spondylosis without myelopathy or radiculopathy, lumbar region; M48.061 Spinal stenosis, lumbar region without neurogenic claudication; Z95.5 Presence of coronary angioplasty implant and graft; Z95.0 Presence of cardiac pacemaker; M85.80 Other specified disorders of bone density and structure, unspecified site
CPT/HCPCS: 72100; 96372; 99281; J2270

== ENCOUNTER → 2024-12-04 | Outpatient (CLI) | payer MEDICARE, MEDICAID, SELFPAY ==
[2024-12-04 09:05] LABS: Collection Type, Urine Clean Catch
[2024-12-04 09:21] LABS: Basophils # (Auto) 0.0 Thou/mm3 (0.0-0.2); Basophils % (Auto) 1 % (0-2.5); Eosinophils # (Auto) 0.2 Thou/mm3 (0.0-0.5); Eosinophils % (Auto) 3 % (0-10); Hematocrit 39.3 % (41.0-53.0); Hemoglobin 13.7 g/dL (13.5-16.0); Immature Granulocytes Auto 0.02 Thou/mm3 (0.00-0.00); Lymphocytes # (Auto) 0.7 Thou/mm3 (1.0-4.8); Lymphocytes % (Auto) 12 % (10-50); Mean Corpuscular HGB Conc 34.9 g/dl (31.0-37.0); Mean Corpuscular Hemoglobin 33.8 pg (25.0-35.0); Mean Corpuscular Volume 97 fL (80-100); Monocytes # (Auto) 0.8 Thou/mm3 (0.0-0.8); Monocytes % (Auto) 13 % (0-12); Neutrophils # (Auto) 4.1 Thou/mm3 (1.8-7.7); Neutrophils % (Auto) 70 % (37-80); Nucleated Red Blood Cell # 0.00 Thou/mm3 (0.00-0.00); Nucleated Red Blood Cell % 0 /100 WBC (0); Platelet Count 177 Thou/mm3 (140-440); RDW Standard Deviation 51.4 fL (35.1-43.9); Red Blood Count 4.05 Miln/mm3 (4.50-5.90); White Blood Count 5.9 Thou/mm3 (3.8-10.6)
[2024-12-04 09:35] LABS: Alanine Aminotransferase 11 U/L (10-49); Albumin, Serum 4.4 gm/dL (3.4-4.8); Albumin/Globulin Ratio 2.0 (1.2-2.2); Alkaline Phosphatase 139 U/L (46-116); Anion Gap 9 (7-16); Aspartate Amino Transferase 24 U/L (0-34); BUN/Creatinine Ratio 15 Ratio (12-20); Bilirubin,Total 2.1 mg/dL (0.3-1.2); Blood Urea Nitrogen 15 mg/dL (9-23); Calcium 8.8 mg/dL (8.3-10.6); Calcium (Corrected) 8.8 mg/dL (8.5-10.1); Carbon Dioxide 25.6 mMol/L (20.0-31.0); Chloride 101 mMol/L (98-107); Creatinine (Component) 1.0 mg/dL (0.6-1.3); Globulin 2.2 gm/dL (2.3-3.5); Glucose 102 mg/dL (74-106); Osmolality,Calculated 272 (275-295); Potassium 4.7 mMol/L (3.4-5.1); Sodium 136 mMol/L (136-145); Total Protein 6.6 gm/dL (5.7-8.2); eGFR > 60 See Note
[2024-12-04 09:40] LABS: Bacteria,Urine Rare; Bilirubin,Urine Negative (Negative); Blood,Urine Negative (Negative); Clarity,Urine Clear (Clear/Hazy); Color,Urine Lt-Yellow (Lt Yel-Yel); Glucose, Urine Negative (Negative); Ketones,Urine Negative (Negative); Leukocyte Esterase,Urine Negative (Negative); Nitrite,Urine Negative (Negative); PH,Urine 6.5 (5.0-7.0); Protein,Urine Negative (Neg - Trace); RBC,Urine 1 /hpf (0-3); Specific Gravity,Urine 1.008 (1.001-1.035); Squamous Epithelial Cell,Urine < 1 /hpf (0-5); Urobilinogen,Urine Negative mg/dL (0.0-1.0); WBC,Urine < 1 /hpf (0-5)
[2024-12-04 09:53] LABS: Carcinoembryonic Antigen 241.2 ng/mL (0.0-5.0)
== END | disposition home or self-care (01) ==
PROVIDERS: PCP Family Medicine; Referring Provider Internal Medicine Hematology & Oncology; Visit Provider Internal Medicine Hematology & Oncology
DX: C20 Malignant neoplasm of rectum (principal)
CPT/HCPCS: 36415; 80053; 81001; 82378; 85025

== ENCOUNTER 2024-12-05 07:03 | Outpatient (RCR) | payer MEDICARE, MEDICAID, SELFPAY ==
[2024-11-19 12:13] LABS: Collection Type, Urine Voided; Squamous Epithelial Cell,Urine 0 /hpf (0-5)
[2024-11-19 12:16] LABS: Basophils # (Auto) 0.1 Thou/mm3 (0.0-0.2); Basophils % (Auto) 1 % (0-2.5); Eosinophils # (Auto) 0.4 Thou/mm3 (0.0-0.5); Eosinophils % (Auto) 7 % (0-10); Hematocrit 43.8 % (41.0-53.0); Hemoglobin 15.4 g/dL (13.5-16.0); Immature Granulocytes Auto 0.02 Thou/mm3 (0.00-0.00); Lymphocytes # (Auto) 1.0 Thou/mm3 (1.0-4.8); Lymphocytes % (Auto) 18 % (10-50); Mean Corpuscular HGB Conc 35.2 g/dl (31.0-37.0); Mean Corpuscular Hemoglobin 33.2 pg (25.0-35.0); Mean Corpuscular Volume 94 fL (80-100); Monocytes # (Auto) 0.6 Thou/mm3 (0.0-0.8); Monocytes % (Auto) 12 % (0-12); Neutrophils # (Auto) 3.3 Thou/mm3 (1.8-7.7); Neutrophils % (Auto) 62 % (37-80); Nucleated Red Blood Cell # 0.00 Thou/mm3 (0.00-0.00); Nucleated Red Blood Cell % 0 /100 WBC (0); Platelet Count 194 Thou/mm3 (140-440); RDW Standard Deviation 50.5 fL (35.1-43.9); Red Blood Count 4.64 Miln/mm3 (4.50-5.90); White Blood Count 5.4 Thou/mm3 (3.8-10.6)
[2024-11-19 12:18] LABS: Bilirubin,Urine Negative (Negative); Blood,Urine Negative (Negative); Clarity,Urine Clear (Clear/Hazy); Color,Urine Lt-Yellow (Lt Yel-Yel); Glucose, Urine Negative (Negative); Ketones,Urine Negative (Negative); Leukocyte Esterase,Urine Negative (Negative); Nitrite,Urine Negative (Negative); PH,Urine 5.0 (5.0-7.0); Protein,Urine Negative (Neg - Trace); RBC,Urine < 1 /hpf (0-3); Specific Gravity,Urine 1.012 (1.001-1.035); Urobilinogen,Urine Negative mg/dL (0.0-1.0); WBC,Urine < 1 /hpf (0-5)
[2024-11-19 12:39] LABS: Alanine Aminotransferase 20 U/L (10-49); Albumin, Serum 4.8 gm/dL (3.4-4.8); Albumin/Globulin Ratio 1.8 (1.2-2.2); Alkaline Phosphatase 164 U/L (46-116); Anion Gap 11 (7-16); Aspartate Amino Transferase 26 U/L (0-34); BUN/Creatinine Ratio 11 Ratio (12-20); Bilirubin,Total 1.7 mg/dL (0.3-1.2); Blood Urea Nitrogen 11 mg/dL (9-23); Calcium 9.9 mg/dL (8.3-10.6); Calcium (Corrected) 9.9 mg/dL (8.5-10.1); Carbon Dioxide 22.7 mMol/L (20.0-31.0); Chloride 105 mMol/L (98-107); Creatinine (Component) 1.0 mg/dL (0.6-1.3); Globulin 2.7 gm/dL (2.3-3.5); Glucose 94 mg/dL (74-106); Osmolality,Calculated 276 (275-295); Potassium 4.4 mMol/L (3.4-5.1); Sodium 139 mMol/L (136-145); Total Protein 7.5 gm/dL (5.7-8.2); eGFR > 60 See Note
[2024-11-19 13:04] LABS: Carcinoembryonic Antigen 230.6 ng/mL (0.0-5.0)
[2024-11-20 09:27] LABS: Alanine Aminotransferase 16 U/L (10-49); Albumin, Serum 4.2 gm/dL (3.4-4.8); Albumin/Globulin Ratio 1.7 (1.2-2.2); Alkaline Phosphatase 156 U/L (46-116); Anion Gap 10 (7-16); Aspartate Amino Transferase 22 U/L (0-34); BUN/Creatinine Ratio 15 Ratio (12-20); Bilirubin,Total 1.7 mg/dL (0.3-1.2); Blood Urea Nitrogen 16 mg/dL (9-23); Calcium 9.5 mg/dL (8.3-10.6); Calcium (Corrected) 9.5 mg/dL (8.5-10.1); Carbon Dioxide 23.1 mMol/L (20.0-31.0); Chloride 107 mMol/L (98-107); Creatinine (Component) 1.1 mg/dL (0.6-1.3); Globulin 2.5 gm/dL (2.3-3.5); Glucose 139 mg/dL (74-106); Osmolality,Calculated 282 (275-295); Potassium 4.0 mMol/L (3.4-5.1); Sodium 140 mMol/L (136-145); Total Protein 6.7 gm/dL (5.7-8.2); eGFR > 60 See Note
== END 2024-12-13 23:59 | disposition home or self-care (01) ==
LOC: SCTC 07:03
PROVIDERS: PCP Family Medicine; Referring Provider Family Medicine; Visit Provider Internal Medicine Hematology & Oncology
DX: Z51.11 Encounter for antineoplastic chemotherapy (principal); C20 Malignant neoplasm of rectum; C78.7 Secondary malignant neoplasm of liver and intrahepatic bile duct; C78.01 Secondary malignant neoplasm of right lung; I25.2 Old myocardial infarction; Z95.810 Presence of automatic (implantable) cardiac defibrillator
CPT/HCPCS: 36591; 80053; 81001; 82378; 85025; 96360; 96361; 96413; A4216; J1642; J3490; J7040; Q5126; A9270

== ENCOUNTER → 2024-12-06 | Outpatient (CLI) | payer MEDICARE, MEDICAID, SELFPAY ==
--- NOTE | 2024-12-06 09:30 | ECHO_ITS ---
Transthoracic Echo Report Ht (in): 67 Wt (lb): 192 Exam Location: Status: Outpatient Programming Specialist: Dulce Sofia Indications: Procedure Performed: BP: 108 / 74 HR: 87 MEASUREMENTS (Male / Female) Normal Values 2D ECHO LV Diastolic Diameter PLAX 4.4 cm 4.2 - 5.9 / 3.9 - 5.3 cm LV Systolic Diameter PLAX 2.7 cm IVS Diastolic Thickness 0.8 cm 0.6 - 1.0 / 0.6 - 0.9 cm LVPW Diastolic Thickness 1.3 cm 0.6 - 1.0 / 0.6 - 0.9 cm LV Relative Wall Thickness 0.5 LA Volume Index 33.4 cm?/m? 16 - 28 cm?/m? Ascending Aorta Diameter 3.3 cm M-MODE AV Cusp Separation MM 1.4 cm DOPPLER AV Peak Velocity 122.0 cm/s AV Peak Gradient 6.0 mmHg AV Mean Gradient 3.0 mmHg AV Velocity Time Integral 27.4 cm LVOT Peak Velocity 118.0 cm/s LVOT Peak Gradient 5.6 mmHg LVOT Velocity Time Integral 26.2 cm MV Area PHT 4.8 cm? Mitral E Point Velocity 74.6 cm/s Mitral A Point Velocity 88.3 cm/s Mitral E to A Ratio 0.8 LV E' Lateral Velocity 6.6 cm/s Mitral E to LV E' Lateral Ratio 11.2 LV E' Septal Velocity 5.7 cm/s Mitral E to LV E' Septal Ratio 13.2 TR Peak Velocity 203.3 cm/s TR Peak Gradient 16.5 mmHg PV Peak Velocity 96.4 cm/s PV Peak Gradient 3.7 mmHg FINDINGS Left Ventricle Normal left ventricular size and wall thickness.Global left ventricular systolic function is mildly decreased.There is grade I diastolic dysfunction of the left ventricle (impaired relaxation pattern) . The ejection fraction is visually estimated at 40-45 %. Right Ventricle The right ventricle is normal in size and systolic function. The estimated right ventricular systolic pressure, __ mmHg. Left Atrium The left atrium is normal by two-dimensional, color flow and Doppler imaging with no structural abnormalities, no thrombus formation present. Right Atrium The right atrium is normal by two-dimensional imaging, color flow and Doppler imaging with no structural abnormalities, no thrombus formation present. Atrial Septum The interatrial septum appears normal with no evidence of a shunt. Aorta The aorta is normal by two-dimensional, color flow and Doppler interrogation. Mitral Valve Mitral annular calcification. Aortic Valve The aortic valve is trileaflet and mildly sclerotic without stenosis.Trace aortic valve regurgitation. Tricuspid Valve The tricuspid valve is normal by two-dimensional, color flow and Doppler interrogation. There is no significant tricuspid valve regurgitation. Pulmonic Valve The pulmonic valve is not well visualized. There is no significant pulmonic valve regurgitation. Vessels The pulmonary artery appears normal. The inferior vena cava pulmonary and hepatic veins appear normal. Pericardium There is a small pericardial effusion without cardiac tamponade CONCLUSIONS Indiction:Malignant neoplasm of rectum Normal LV size.Mild LV function with global hypokensis estimated EF of 40-45%. Apical akinesi noted. Normal right ventricular size and function. Mild AOV sclerosis. Mild MAC. Trace AI and Trace mitral regurgitation There is a small pericardial effusion without cardiac tamponade Compared to prior study of 08/14/24 Graham Caal (Electronically Signed) Final Date: 07 December 2024 17:02
== END | disposition home or self-care (01) ==
LOC: SDIM 08:51
PROVIDERS: PCP Nurse Practitioner; Referring Provider Internal Medicine Hematology & Oncology; Visit Provider Internal Medicine Hematology & Oncology
DX: I08.3 Combined rheumatic disorders of mitral, aortic and tricuspid valves (principal); I31.39 Other pericardial effusion (noninflammatory); C20 Malignant neoplasm of rectum
CPT/HCPCS: 93306

== ENCOUNTER → 2024-12-16 | Outpatient (CLI) | payer MEDICARE, MEDICAID, SELFPAY ==
--- NOTE | 2024-12-16 11:00 | XR_ITS ---
Examination: CT left hip, without contrast. CT pelvis without intravenous contrast 2-D sagittal reconstructions. 2-D coronal reconstructions. 3-D reconstructions. Date and time of exam: December 16, 2024, 1042 hours INDICATIONS: Left hip pain for months CTDI: vol (mGy): 9.09 DLP: (mGycm): 296 Technique: Multiple 1.25 mm axial sections of the pelvis left hip have been obtained. 2-D sagittal and coronal reconstructions have been obtained. 3-D reconstructions have been obtained. Low dose protocols were performed. One or more of the following dose reduction techniques were used; automated exposure control, adjustment of the mA and/or KV according to patient size, use of iterative reconstruction technique. Findings: Nonobstructive bowel gas pattern Urinary bladder intact No significant prostatomegaly Prominent osteopenia Moderate bilateral hip osteoarthritis No avascular necrosis Sacral segments bones of the pelvis including acetabular regions intact Anterior rami intact IMPRESSION: Moderate bilateral hip osteoarthritis
== END | disposition home or self-care (01) ==
PROVIDERS: Referring Provider Nurse Practitioner; Visit Provider Nurse Practitioner
DX: M16.0 Bilateral primary osteoarthritis of hip (principal)
CPT/HCPCS: 73700

== ENCOUNTER 2024-12-25 12:32 | Observation (INO) | payer MEDICARE, MEDICAID, SELFPAY ==
[2024-12-25] VITALS (8 sets, daily range): BP systolic 99–128; BP diastolic 67–84; PULSE 66–93; RESP 16–19; TEMP 36.3–36.7; O2SAT 91–99; BMI 29.9
--- NOTE | 2024-12-25 12:45 | EKG_ITS ---
[facility] Test Date: 2024-12-25 Pat Name: ARLEN VALDOVINOS Department: Room: - Gender: Male Pension Agent: : [id number] Requested By: Nahomy Meza Order Number: [id number] Reading MD: Nahomy Meza Measurements Intervals [place] Rate: 82 P: 30 AR: 173 QRS: -52 QRSD: 102 T: 65 QT: 349 QTc: 409 Interpretive Statements SINUS RHYTHM LOW QRS VOLTAGE IN PRECORDIAL LEADS [QRS DEFLECTION < 1.0 mV IN CHEST LEADS] LEFT ANTERIOR FASCICULAR BLOCK [QRS AXIS <= -45, QR IN I, RS IN II] ANTEROSEPTAL MYOCARDIAL INFARCTION , OF INDETERMINATE AGE [40+ ms Q WAVE IN V1-V4] Compared to ECG 01/03/2018 12:44:03 Low QRS voltage now present Left anterior fascicular block now present Myocardial infarct finding now present Sinus bradycardia no longer present /store/S0/[id number].pdf
--- NOTE | 2024-12-25 13:28 | XR_ITS ---
EXAMINATION: AP chest single view TECHNIQUE: AP portable upright chest single view Date and time: December 26, 2023, 1403 hours, comparison February 15, 2022 INDICATIONS: Chest pain shortness of breath beginning today. FINDINGS: Normal heart size Subsegmental atelectasis at the lung bases No pneumonia or pulmonary edema Left subclavian Port-A-Cath and cardiac leads satisfactory position IMPRESSION: Minor subsegmental atelectasis at the lung bases
--- NOTE | 2024-12-25 13:36 | EDNOTE_ITS ---
ED Chest Pain RME/HPI General Chief Complaint: Chest Pain Stated Complaint: CHEST PAIN Time Seen by Provider: 12/25/24 12:49 Arrival date/time: 12/25/24 12:32 RME / HPI RME / HPI narrative: DR. 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 Described as aching in sensation, rating as moderate. Accompanied by sweating. Medics administered 1 SL Nitro and 182mg ASA that resolved the pain. On arrival to ED, states he has no chest pain though does complain of bilateral lower extremity pain that is chronic and unchanged. States he took Gabapentin with no improvement. Denies fevers, chills, cough, shortness of breath, abdominal pain, n/v/d, or urinary symptoms. Patient states he has an appointment scheduled on 01/14/2025 for echocardiogram and 01/29/2025 for results. Additionally states he has an echo performed every 3-4 months that is ordered by his cancer doctor, last performed 1 week ago, and told he has fluid around his heart. Advised to follow up with seed corn manager production. Last stress test performed 1 year ago in [place], [place]. Oncologist: Dr. Nowak [employer]; Dr. Coughlin in [place] [employer] Home Medications ?Medication ?Instructions ?Recorded ?Confirmed gabapentin 100 mg capsule 100 mg PO TID 01/03/1801/12 acetaminophen 300 mg-codeine 30 mg 1 tab PO Q6H PRN Pa in 01/11/18 01/12/18 tablet Previous Rx's ?Medication ?Instructions ?Recorded tramadol 50 mg tablet 50 mg PO Q6H PRN pain #16 ta bs 12/02/24 Allergies Allergy/AdvReac Type Severity Reaction Status Date / Time No Known Allergies Allergy Verified 12/25/24 12:40 Review of Systems Review of Systems Systems Reviewed: All systems reviewed, normal except as documented Past Medical History Past Medical History CARDIAC: Positive Cardiac Disorders, Myocardial Infarction and Hypertension RESPIRATORY: Positive Pneumonia GASTROINTESTINAL: Positive Gastrointestinal Disorders, Colorectal Cancer and Gastroesophageal Reflux Disease MUSCULOSKELETAL: Positive Musculoskeletal Disorders, Degenerative Disk Disease and Fractures OTHER HISTORY: Positive Hospitalization, Chemotherapy, Radiation Therapy, Chicken Pox, Cancer (LIVER CANCER), Colorectal Cancer and Lung Cancer Family History FAMILY HISTORY: Positive Family Respiratory Disorders, Family Cardiac Disorders, Family Gastrointestinal Problems, Family Cancer and Family Surgery Surgical History SURGICAL: Positive Cardiac Surgery, Coronary Stent, Cardiac Catheterization, Pacemaker and Bowel Surgery Social History SMOKING STATUS: Former smoker ED Exam Narrative Physical exam: Constitutional: Awake, alert, nontoxic, no acute distress, elderly, obese HEENT: Normocephalic, atraumatic, extraocular movements intact. Neck: Supple CV: Regular rate and rhythm, no murmurs/rubs/gallops, Chest: pacemaker right upper chest, port left upper chest Lungs: Clear to auscultation BL, no respiratory distress. Abd: Soft, NT, ND, no HSM noted to palpation Extremities: No deformities, no edema noted Neuro: AAOx3, CN 2-12 GIBL, no acute neuro deficit noted. Skin: Warm, dry, intact Course Course Course Narrative: 1715h: Patient's repeat troponin is negative. EKG with no significant acute abnormalities noted. No ST segment elevation or depression. Had a cardiac echo in November of this year with the following findings: Normal LV size.Mild LV function with global hypokensis estimated EF of 40-45%. Apical akinesi noted. Normal right ventricular size and function. Mild AOV sclerosis. Mild MAC. Trace AI and Trace mitral regurgitation There is a small pericardial effusion without cardiac tamponade Compared to prior study of 08/14/24 Carlos Martins regarding pts presentation, ED course, and history. Recommends admit for obs. 1720h: Carlos garcia hospitalist team C for patient admit. They will be down to eval pt. Quality Measures none Orders Category Date Time Status EKG (ED ONLY) *Do not use* NOW Care 12/25/24 12:45 Completed EKG (ED Only) Stat Exams 12/25/24 12:45 Draft XR chest 1V portable Stat Exams 12/25/24 13:28 Completed CBC Stat Lab 12/25/24 13:58 Completed Comprehensive Metabolic Panel Stat Lab 12/25/24 13:58 Completed Drug Screen,Urine Stat Lab 12/25/24 13:28 Ordered Magnesium Stat Lab 12/25/24 13:58 Completed Partial Thromboplastin Time Stat Lab 12/25/24 13:58 Completed Prothrombin Time with INR Stat Lab 12/25/24 13:58 Completed Troponin I Stat Lab 12/25/24 13:58 Completed Troponin I Urgent Lab 12/25/24 15:37 Completed Urinalysis, C/S if Indicated Stat Lab 12/25/24 13:28 Ordered Morphine* Inj Med 12/25/24 14:07 Discontinued 4 mg IM X1 ONE Vital Signs Vital signs: Vital Signs Temperature 97.8 F 12/25/24 12:41 Pulse Rate 93 12/25/24 12:41 Respiratory Rate 18 12/25/24 12:41 Blood Pressure 99/67 12/25/24 12:41 Pulse Oximetry (%) 91 L 12/25/24 12:41 Oxygen Delivery Method Room Air 12/25/24 12:41 Pulse ox is 91% on room air which is low. Chest Pain MDM Narrative MDM Narrative:: Yara Arias am scribing for and in the presence of Dr. Kennedy. 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 ) Lab and/or radiology exams considered but not ordered:: None Interpretation Summary: Ordering Physician: Skye Kennedy MD Date of Service: 12/25/24 Procedure(s): XR chest 1V portable Accession Number(s): [id number] cc: Yogi Smith MD; Skye Kennedy MD~ EXAMINATION: AP chest single view TECHNIQUE: AP portable upright chest single view Date and time: December 26, 2023, 1403 hours, comparison February 15, 2022 INDICATIONS: Chest pain shortness of breath beginning today. FINDINGS: Normal heart size Subsegmental atelectasis at the lung bases No pneumonia or pulmonary edema Left subclavian Port-A-Cath and cardiac leads satisfactory position IMPRESSION: Minor subsegmental atelectasis at the lung bases Dictated By: Yogi Smith MD Signed By: <Electronically signed by Yogi Smith MD in OV> 12/25/24 1414 Medications / Prescriptions Medications or Prescriptions considered but not ordered:: None Medication administrations:: Medication Administration History Discontinued Medications Morphine Sulfate (Morphine Sulf Inj 4 Mg/Ml Vial) 4 mg IM X1 ONE Stop: 12/25/24 14:08 Last Admin: 12/25/24 14:21 Dose: 4 mg Documented By: LW See above Consultations Consultation(s) initiated? (list below): Yes Consultation #1 (Physician, Specialty, Details): See course Diagnosis Chest Pain Differential Diagnosis: pneumothorax, stable angina, unstable angina pectoris, atypical chest pain, st elevation myocardial infarction, costochondritis, chest pain and biliary colic Most likely diagnosis given after review of the tests above:: Chest pain History of CAD History of metastatic malignant neoplasm Admission Indicated Admission indicated?: indicated Admission Request Was there a request for admission?: Yes Admission Attestation Admission request attestation: Discussed case with [] from Hospitalist service regarding admission. Discussed patients ED course, exam findings, labs, and radiology results. The Hospitalist [agrees,declines] to accept the patient for admission. Disposition Plan Disposition Plan: Admit Discharge Plan Plan Patient Disposition: Admit Acute Care w/in Hospital Patient condition on transfer: Stable Prescriptions/Referrals Prescriptions/Med Rec: No Action acetaminophen-codeine 300-30 mg Tablet 1 tab PO Q6H PRN (Reason: Pain) gabapentin 100 mg Capsule 100 mg PO TID tramadol 50 mg tablet 50 mg PO Q6H MDD max 3 tabs per day PRN (Reason: pain) Qty: 16 0RF Referrals: Rosa Isela Randolph FNP [Primary Care Provider] - In 1 week Problem List Clinical Impression: Chest pain, History of CAD (coronary artery disease), History of metastatic malignant neoplasm Patient/Caregiver Discharge Instructions Print Language: Sami Stand Alone Forms: Mireya Award Info., Patient Portal Info Letter
[2024-12-25] MEDS: MORPHINE SULF INJ 4 MG/ML VIAL IM (14:21)
[2024-12-25 14:27] LABS: Basophils # (Auto) 0.0 Thou/mm3 (0.0-0.2); Basophils % (Auto) 1 % (0-2.5); Eosinophils # (Auto) 0.2 Thou/mm3 (0.0-0.5); Eosinophils % (Auto) 3 % (0-10); Hematocrit 37.8 % (41.0-53.0); Hemoglobin 13.3 g/dL (13.5-16.0); Immature Granulocytes Auto 0.01 Thou/mm3 (0.00-0.00); Lymphocytes # (Auto) 0.9 Thou/mm3 (1.0-4.8); Lymphocytes % (Auto) 16 % (10-50); Mean Corpuscular HGB Conc 35.2 g/dl (31.0-37.0); Mean Corpuscular Hemoglobin 32.9 pg (25.0-35.0); Mean Corpuscular Volume 94 fL (80-100); Monocytes # (Auto) 0.7 Thou/mm3 (0.0-0.8); Monocytes % (Auto) 12 % (0-12); Neutrophils # (Auto) 3.9 Thou/mm3 (1.8-7.7); Neutrophils % (Auto) 69 % (37-80); Nucleated Red Blood Cell # 0.00 Thou/mm3 (0.00-0.00); Nucleated Red Blood Cell % 0 /100 WBC (0); Platelet Count 151 Thou/mm3 (140-440); RDW Standard Deviation 45.7 fL (35.1-43.9); Red Blood Count 4.04 Miln/mm3 (4.50-5.90); White Blood Count 5.6 Thou/mm3 (3.8-10.6)
[2024-12-25 14:43] LABS: INR 1.0 (0.9-1.3); Partial Thromboplastin Time 30.4 Seconds (22.0-36.0); Prothrombin Time 10.4 Seconds (9.0-12.2)
[2024-12-25 14:47] LABS: Alanine Aminotransferase 17 U/L (10-49); Albumin, Serum 4.0 gm/dL (3.4-4.8); Albumin/Globulin Ratio 1.8 (1.2-2.2); Alkaline Phosphatase 122 U/L (46-116); Anion Gap 10 (7-16); Aspartate Amino Transferase 14 U/L (0-34); BUN/Creatinine Ratio 10 Ratio (12-20); Bilirubin,Total 0.8 mg/dL (0.3-1.2); Blood Urea Nitrogen 10 mg/dL (9-23); Calcium 9.1 mg/dL (8.3-10.6); Calcium (Corrected) 9.1 mg/dL (8.5-10.1); Carbon Dioxide 24.1 mMol/L (20.0-31.0); Chloride 107 mMol/L (98-107); Creatinine (Component) 1.0 mg/dL (0.6-1.3); Estimated Creatinine Clearance 77.4 mL/min (>60); Globulin 2.2 gm/dL (2.3-3.5); Glucose 95 mg/dL (74-106); Magnesium 1.8 mg/dL (1.6-2.6); Osmolality,Calculated 280 (275-295); Potassium 3.7 mMol/L (3.4-5.1); Sodium 141 mMol/L (136-145); Total Protein 6.2 gm/dL (5.7-8.2); Troponin I < 0.020 ng/mL (0.0-0.045); eGFR > 60 See Note
[2024-12-25 16:39] LABS: Troponin I < 0.020 ng/mL (0.0-0.045)
[2024-12-25 18:53] LABS: Collection Type, Urine Clean Catch
[2024-12-25 18:56] LABS: Bilirubin,Urine Negative (Negative); Blood,Urine Negative (Negative); Clarity,Urine Clear (Clear/Hazy); Color,Urine Lt-Yellow (Lt Yel-Yel); Culture Indicated,Urine Not Indicated; Glucose, Urine Negative (Negative); Ketones,Urine Negative (Negative); Leukocyte Esterase,Urine Negative (Negative); Nitrite,Urine Negative (Negative); PH,Urine 7.0 (5.0-7.0); Protein,Urine Negative (Neg - Trace); RBC,Urine 2 /hpf (0-3); Specific Gravity,Urine 1.016 (1.001-1.035); Squamous Epithelial Cell,Urine < 1 /hpf (0-5); Urobilinogen,Urine 2.0 mg/dL (0.0-1.0); WBC,Urine < 1 /hpf (0-5)
--- NOTE | 2024-12-25 19:07 | ESHP_ITS ---
Documentation for date of: 12/25/24 [facility] History of Present Illness History of present illness: Mr. Mccall is a 64-year-old male with past medical history of colon cancer status post resection and mets to liver status post chemotherapy and mets to lungs in 2018, and history of UT in 2020 for which patient underwent PCI and 1 stent was placed, HFrEF status post pacemaker with defibrillator in 2020 presented to the ED after having left-sided chest pain. Patient states that he has sciatica pain which started rising up to his flank and started feeling the pain in his left-sided chest pain and arm. Patient states he had associated diaphoresis which made him really nervous because of his previous history of UT. States denies any any and denied any shortness of breath, dizziness, syncopal episode or nausea associated with his chest pain. Patient follows assembler brazer Dr. Coughlin regularly in [place]. Chest pain is not reproducible and does not improve with rest, the duration of pain was approximately 1 hour which would come and go. Pain was relieved by nitroglycerin which he received by the paramedics. ED course In the ED labs are unremarkable Morphine 4 mg x 1 ED consulted assembler brazer Dr. Martins who recommended to admit the patient into observation and trend troponins. EKG obtained in the ED did not show any ST or T wave changes PMH: Colon cancer mets to lungs and liver, history of UT, HFrEF PSH: Tumor resection in the colon, pacemaker with defibrillator insertion SH: denies tobacco, illicit drug use or alcohol use Home Meds: Brilinta 60 mg twice daily, carvedilol 6.25 mg twice daily, Entresto twice daily, atorvastatin 80 mg, Azetimibe 10mg daily, lonsurf 15mg QID Review of Systems Review of Systems Systems Reviewed: All systems reviewed, normal except as documented Exam Vital Signs Temp Pulse Resp BP Pulse Ox O2 Del Method O2 Flow Rate 97.6 F 69 18 119/81 97 Nasal Cannula 2 12/25/24 18:00 12/25/24 18:00 12/25/24 18:00 12/25/24 18:00 12/25/24 18:00 12/25/24 18:00 12/25/24 18:00 Narrative Exam GENERAL: A&Ox3 . Awake, Not in acute distress NEURO: no focal neurological deficits HEENT: Atraumatic, Normocephalic. mucous membranes moist. Eyes open, symmetrical, & clear HEART: Normal Heart Sounds, pacemaker noted on right side of chest LUNGS: Clear to auscultation with no wheezing or crackles. ABDOMEN: soft, non-distended, non-tender, bowel sounds heard, no guarding or rebound tenderness, surgical scar SKIN: No Rash or ecchymoses, EXTREMITIES: No edema, tenderness, able to move all 4 extremities, pedal pulses palpated Results: Labs 12/26/24 05:10 12/26/24 05:10 Labs: Short CBC 12/25/24 Range/Units 13:58 WBC 5.6 (3.8-10.6) Thou/mm3 Hgb 13.3 L (13.5-16.0) g/dL Hct 37.8 L (41.0-53.0) % Plt Count 151 D (140-440) Thou/mm3 BMP 12/25/24 13:58 Sodium 141 Potassium 3.7 Chloride 107 Carbon Dioxide 24.1 BUN 10 Creatinine 1.0 Glucose 95 Calcium 9.1 Cardiac Enzymes 12/25/24 12/25/24 Range/Units 13:58 15:37 Troponin I < 0.020 < 0.020 (0.0-0.045) ng/mL Liver Function 12/25/24 Range/Units 13:58 Total Bilirubin 0.8 (0.3-1.2) mg/dL AST 14 (0-34) U/L ALT 17 (10-49) U/L Alkaline Phosphatase 122 H (46-116) U/L Albumin 4.0 (3.4-4.8) gm/dL Quality Measures Quality Measures none Advance care planning discussed with:: patient Medications Home Medications and Allergies Home Medications ?Medication ?Instructions ?Recorded ?Confirmed ?Type gabapentin 100 mg capsule 100 mg PO TID 01/03/1812/25 History atorvastatin 80 mg tablet 80 mg PO QDAY 12/25/2412/25 History carvedilol 6.25 mg tablet 6.25 mg PO Q12H 12/25/2402/06 History ezetimibe 10 mg tablet 10 mg PO QDAY 12/25/2412/25 History sacubitril 49 mg-valsartan 51 mg 1 tab PO BID 12/25/24 12/25/24 History tablet (Entresto) ticagrelor 60 mg tablet (Brilinta) 60 mg PO BID 12/25/24 History Allergies Allergy/AdvReac Type Severity Reaction Status Date / Time No Known Allergies Allergy Verified 12/25/24 12:40 Visit Medications Acetaminophen (Acetaminophen 325 Mg Tablet) 650 mg PO Q6H PRN PRN Reason: Fever >100.3 Stop: 01/24/25 18:51 Acetaminophen (Acetaminophen 325 Mg Tablet) 650 mg PO Q6H PRN PRN Reason: PAIN SCALE 1-6 Stop: 01/24/25 18:51 Aspirin (Aspirin Ec 81 Mg Tabec) 81 mg PO QDAY [facility] Stop: 01/25/25 08:59 Atorvastatin Calcium (Atorvastatin Calcium 20 Mg Tablet) 80 mg PO HS [facility] Stop: 01/24/25 20:59 Carvedilol (Carvedilol 3.125 Mg Tablet) 6.25 mg PO BIDWM [facility] Stop: 01/25/25 07:59 Ezetimibe (Ezetimibe 10 Mg Tablet) 10 mg PO QDAY [facility] Stop: 01/25/25 08:59 Heparin Sodium (Porcine) (Heparin Sod Inj 5000 Unit/Ml Vial) 5,000 unit SC Q8HR [facility] Stop: 01/08/25 21:59 Magnesium Sulfate (Magnesium Sulfate Ivpb) 2 gm in 50 mls @ 25 mls/hr IV X1 ONE Stop: 12/25/24 20:59 Morphine Sulfate (Morphine Sulf Inj 4 Mg/Ml Vial) 1 mg IVP Q4HR PRN PRN Reason: PAIN SCALE 7-10 (Severe Stop: 12/30/24 18:51 Nitroglycerin (Nitroglycerin 0.4 Mg Subl Btl #25) 0.4 mg SL Q5MIN PRN PRN Reason: CHEST PAIN Ondansetron HCl (Ondansetron Inj 2 Mg/Ml Inj 2 Ml) 4 mg IVP Q6H PRN; Protocol PRN Reason: NAUSEA OR VOMITING Stop: 01/24/25 18:51 Pantoprazole Sodium (Pantoprazole 40 Mg Tablet) 40 mg PO QDAY [facility] Stop: 01/25/25 08:59 Sennosides (Senna Tablet) 1 tab PO QDAY PRN; Protocol PRN Reason: constipation Stop: 01/24/25 18:51 Ticagrelor (Ticagrelor 90 Mg Tablet) 60 mg PO BID JANET Stop: 01/24/25 20:59 Discontinued Medications Acetaminophen (Acetaminophen 325 Mg Tablet) 650 mg PO Q6H PRN PRN Reason: PAIN SCALE 1-7 Stop: 01/24/25 18:51 Morphine Sulfate (Morphine Sulf Inj 4 Mg/Ml Vial) 4 mg IM X1 ONE Stop: 12/25/24 14:08 Last Admin: 12/25/24 14:21 Dose: 4 mg Assessment & Plan Plan Mr. Mccall is a 64-year-old male with past medical history of colon cancer status post resection and mets to liver status post chemotherapy and mets to lungs in 2018, and history of UT in 2020 for which patient underwent PCI and 1 stent was placed, HFrEF status post pacemaker with defibrillator in 2020 presented to the ED after having left-sided chest pain. Pt is admitted for atypical chest pain, and trending troponins #Atypical Chest Pain #Hx of UT s/p PCI NSTEMI vs. ACS vs. costochondritis -Patient complains of left-sided chest pain, with associated diaphoresis and radiating down his left arm. Patient states the pain is not reproducible and is not relieved by rest. Patient does have a history of UT in 2020 status post PCI. Pt follows Dr. Coughlin in [place]. - EKG in the ED was sinus rhythm without any ST or T wave changes - Pain is relieved by nitroglycerin -Labs are unremarkable including troponins x 3 are <0.02 Plan: -Cardiology is consulted, Dr. Martins is on board -Per cardiology only trending troponins, no need to start ACS protocol heparin drip -will resume home medications including Brilinta, aspirin, statin and Coreg - Nitroglycerin as needed #HFrEF s/p Pacemaker and defibrillator - Patient underwent a pacemaker and defibrillator [place] [address] Coughlin in [place] - Echo done 12/06/24 EF 40 to 45% Plan: -Stripper Apprentice Dr. Martins on board - Strict I's and O's with fluid restrictions ordered #History of colon cancer with mets to liver and lungs Patient underwent tumor resection in 2018-status post chemotherapy currently is being followed by Dr. Quiles at the [facility] Health Maintenance Disposition:Observation in telemetry DVT Prophylaxis: Pt is resumed home brilinta GI Prophylaxis: Pantoprozol-40 IV Qday Diet: Cardiac Diet Lines: Peripheral lines Code status: DNR Assessment and plan discussed with my attending physician Dr. Sumit Rico (PGY-2)- Internal medicine resident Attending Provider Attestation/Addendum I reviewed labs, imaging, EKG, home medications and prior available records. Face to face evaluation was performed by me. I have personally examined the patient and discussed assessment and plan with the IM team. I reviewed the resident note and agree with the plan with exceptions as below. CAD status post PCI HFrEF EF 40 to 45% History of stage IV rectal cancer with pulmonary metastases Chest pain at rest Neuropathic pain Initial troponin is negative Continue to trend Continue atorvastatin and present Continue Coreg and Entresto Admitted to observation/telemetry Consulted cardiology Dr. Martins
[2024-12-25 19:12] LABS: Amphetamine/Methamp Scrn,U Negative (Negative); Barbiturate Screen,Urine Negative (Negative); Benzodiazepines Screen,Urine Negative (Negative); Benzoylecgonine Screen, Ur Negative (Negative); Fentanyl Screen,Urine Negative (Negative); Opiate Screen,Urine Positive (Negative); THC Screen,Urine Negative (Negative)
--- NOTE | 2024-12-25 19:48 | PC.NURSE ---
REPORT GIVEN TO FLOOR BHARAT
[2024-12-25] MEDS: Magnesium Sulfate 2 GM Ivpb 2 GM/50 ML BAG IV (20:24)
[2024-12-25] MEDS: MORPHINE SULF INJ 4 MG/ML VIAL 1 MG IVP (20:32)
[2024-12-25] MEDS: PREGABALIN 50 MG CAPSULE PO (22:06)
[2024-12-25] MEDS: HEPARIN SOD INJ 5000 UNIT/ML VIAL SC (22:08)
[2024-12-26] VITALS: BP 127/84; PULSE 67; PULSE 70; RESP 17; TEMP 36.2; O2SAT 97
[2024-12-26] MEDS: MORPHINE SULF INJ 4 MG/ML VIAL 1 MG IVP ×3 (01:15→11:10)
--- NOTE | 2024-12-26 01:21 | PC.NURSE ---
accessed patient's chart for main nurse Kennedi MACK
[2024-12-26 04:00] VITALS: BP 116/76; PULSE 73; RESP 17; TEMP 36.6; O2SAT 96
[2024-12-26] MEDS: PREGABALIN 50 MG CAPSULE PO ×2 (05:36→13:22)
[2024-12-26] MEDS: HEPARIN SOD INJ 5000 UNIT/ML VIAL SC ×2 (05:37→13:22)
[2024-12-26 06:00] VITALS: BMI 29.5
[2024-12-26 06:06] LABS: Basophils # (Auto) 0.0 Thou/mm3 (0.0-0.2); Basophils % (Auto) 0 % (0-2.5); Eosinophils # (Auto) 0.2 Thou/mm3 (0.0-0.5); Eosinophils % (Auto) 3 % (0-10); Hematocrit 39.5 % (41.0-53.0); Hemoglobin 13.5 g/dL (13.5-16.0); Immature Granulocytes Auto 0.01 Thou/mm3 (0.00-0.00); Lymphocytes # (Auto) 0.9 Thou/mm3 (1.0-4.8); Lymphocytes % (Auto) 19 % (10-50); Mean Corpuscular HGB Conc 34.2 g/dl (31.0-37.0); Mean Corpuscular Hemoglobin 32.5 pg (25.0-35.0); Mean Corpuscular Volume 95 fL (80-100); Monocytes # (Auto) 0.6 Thou/mm3 (0.0-0.8); Monocytes % (Auto) 12 % (0-12); Neutrophils # (Auto) 3.0 Thou/mm3 (1.8-7.7); Neutrophils % (Auto) 65 % (37-80); Nucleated Red Blood Cell # 0.00 Thou/mm3 (0.00-0.00); Nucleated Red Blood Cell % 0 /100 WBC (0); Platelet Count 145 Thou/mm3 (140-440); RDW Standard Deviation 47.3 fL (35.1-43.9); Red Blood Count 4.15 Miln/mm3 (4.50-5.90); White Blood Count 4.6 Thou/mm3 (3.8-10.6)
[2024-12-26 06:20] LABS: INR 1.0 (0.9-1.3); Partial Thromboplastin Time 33.2 Seconds (22.0-36.0); Prothrombin Time 10.5 Seconds (9.0-12.2)
[2024-12-26 06:34] LABS: Alanine Aminotransferase 14 U/L (10-49); Albumin, Serum 4.1 gm/dL (3.4-4.8); Albumin/Globulin Ratio 2.2 (1.2-2.2); Alkaline Phosphatase 121 U/L (46-116); Anion Gap 8 (7-16); Aspartate Amino Transferase 20 U/L (0-34); BUN/Creatinine Ratio 11 Ratio (12-20); Bilirubin,Total 1.2 mg/dL (0.3-1.2); Blood Urea Nitrogen 11 mg/dL (9-23); Calcium 8.5 mg/dL (8.3-10.6); Calcium (Corrected) 8.5 mg/dL (8.5-10.1); Carbon Dioxide 26.8 mMol/L (20.0-31.0); Cardiac Risk Estimate 2.7 RATIO (4.0-6.7); Chloride 105 mMol/L (98-107); Cholesterol 84 mg/dL (132-200); Creatinine (Component) 1.0 mg/dL (0.6-1.3); Estimated Creatinine Clearance 76.9 mL/min (>60); Globulin 1.9 gm/dL (2.3-3.5); Glucose 94 mg/dL (74-106); HDL Cholesterol 31 mg/dL (40-60); LDL Cholesterol,Calculated 35 mg/dL (0-130); Magnesium 2.1 mg/dL (1.6-2.6); Osmolality,Calculated 278 (275-295); Phosphorous 2.8 mg/dL (2.4-5.1); Potassium 4.2 mMol/L (3.4-5.1); Sodium 140 mMol/L (136-145); Thyroid Stimulating Hormone 3.21 uIU/mL (0.55-4.78); Total Protein 6.0 gm/dL (5.7-8.2); Triglycerides 91 mg/dL (30-150); Troponin I < 0.020 ng/mL (0.0-0.045); eGFR > 60 See Note
[2024-12-26 07:09] VITALS: PULSE 67; RESP 18; RESP 95
[2024-12-26 08:00] VITALS: BP 128/87; PULSE 68; PULSE 81; RESP 16; TEMP 36.2; O2SAT 97
[2024-12-26 08:28] VITALS: BP 128/87; PULSE 68
[2024-12-26] MEDS: EZETIMIBE 10 MG TABLET PO (08:28)
[2024-12-26] MEDS: ASPIRIN EC 81 MG TABEC PO (08:28)
[2024-12-26] MEDS: PANTOPRAZOLE 40 MG TABLET PO (08:28)
--- NOTE | 2024-12-26 09:24 | ESDS_ITS ---
<Statement entered by Gely Gilmore MD - 12/27/24 08:04> Patient was seen and examined by me personally. I have reviewed the below documentation by the team resident and agree with its findings with any exceptions as below. Discharge plan was discussed with the attending, Dr. Arana. Gely Gilmore, PGY-3 Planned Discharge Date 12/26/24 DS: Providers Provider Date of admission: 12/25/24 18:52 Primary care physician: ABDOUL Caballero Admitting Provider: Nirav Arana MD Attending Provider on Admission: Nirav Arana MD Consults: 12/25/24 19:01 Consult to Cardiology Routine Comment: Consulting Provider: Rosalinda Martins Attending Provider on DC: Nirav Arana MD Discharging Provider: Denver Marina DO DS: Diagnosis Discharge Diagnosis (1) Chest pain: Status: Acute (2) History of metastatic malignant neoplasm: Status: Acute (3) History of CAD (coronary artery disease): Status: Acute Problem List Completed Was Problem List Reviewed/Reconciled?: Yes Hospital Course Hospital Course Hospital course: Hospital Course: Mr. Mccall is a 64-year-old male with past medical history of colon cancer status post resection and mets to liver status post chemotherapy and mets to lungs in 2018, and history of MD in 2020 for which patient underwent PCI and 1 stent was placed, HFrEF status post pacemaker with defibrillator in 2020 pres ented to the ED after having left-sided chest pain. Patient states that he has sciatica pain which started rising up to his flank and started feeling the pain in his left-sided chest pain and arm. Patient stated that he had associated diaphoresis which made him really nervous because of his previous history of MD. He denied any shortness of breath, dizziness, syncopal episodes or nausea associated with his chest pain upon presentation. Patient follows e tailer Dr. Coughlin regularly in [place]. His chest pain was not reproducible and did not improve with rest. The duration of pain was approximately 1 hour which would come and go. His pain was relieved by nitroglycerin from the paramedics. EKG in the ED was negative for any acute ST segment changes. The patient was admitted for observation and to trend his troponins. The patient never had an elevation in his troponins and denied chest pain upon discharge. His vitals were stable upon discharge and he will follow-up outpatient with cardiology. Problem List: #Atypical Chest Pain #Hx of MD s/p PCI #HFrEF s/p Pacemaker and defibrillator #History of colon cancer with mets to liver and lungs Instructions: * Continue taking all home medications as prescribed * Follow-up with cardiology within 1-2 weeks of discharge * If you do not have a PCP, then you can follow-up at the [facility] * Return to the emergency room if symptoms worsen The patient was seen and discussed with my attending physician Dr. Sumit NARAYAN and my senior resident Dr. Mando NARAYAN PGY-3. Denver Marina DO PGY-1 Time Spent with Patient Time attestation: Total time spent providing and/or coordinating discharge services: More than 50% Time spent: Greater than 30 minutes Exam Vital Signs Temp Pulse Resp BP Pulse Ox O2 Del Method O2 Flow Rate 97.2 F 68 16 128/87 H 97 Room Air 2 12/26/24 08:00 12/26/24 08:28 12/26/24 08:00 12/26/24 08:28 12/26/24 08:00 12/26/24 08:00 12/25/24 18:00 Narrative Exam General: Awake and in no acute distress. Conversational and non-toxic appearing. Neurologic: GCS 15. Alert and oriented x3, no gross neurological deficit, and patient able to move all 4 extremities. HEENT: Normocephalic, atraumatic, mucous membranes moist. Pupils reactive to light. Heart: Pacemaker right side of chest. Regular rate and rhythm, normal S1 and S2, no murmurs. Lungs: Clear to auscultation bilaterally with no wheezing or crackles. Abdomen: Soft, nondistended, nontender, positive bowel sounds. No guarding or rebound tenderness. Extremities: No edema. 2+ radial and dorsalis pedis pulses bilaterally. Skin: Warm. Dry. No rash or ecchymoses. Discharge Plan Plan Patient Disposition: HOME (Self Care) Patient condition on transfer: Stable Care Plan Goals: Instructions: * Continue taking all home medications as prescribed * Follow-up with cardiology within 1-2 weeks of discharge * If you do not have a PCP, then you can follow-up at the [facility] * Return to the emergency room if symptoms worsen Prescriptions/Referrals Prescriptions/Med Rec: Continued gabapentin 100 mg Capsule 100 mg PO TID ticagrelor [Brilinta] 60 mg tablet 60 mg PO BID carvedilol 6.25 mg tablet 6.25 mg PO Q12H Patient Comments: TAKE 1 TABLET BY MOUTH TWICE A DAY WITH FOOD FOR 90 DAYS sacubitril-valsartan [Entresto] 49-51 mg tablet 1 tab PO BID atorvastatin 80 mg tablet 80 mg PO QDAY Patient Comments: TAKE 1 TABLET BY MOUTH EVERY DAY ezetimibe 10 mg tablet 10 mg PO QDAY Patient Comments: TAKE 1 TABLET BY MOUTH EVERY DAY Referrals: Rosa Isela Randolph FNP [Primary Care Provider] Patient/Caregiver Discharge Instructions Education Materials: Medicine for Pain, Complementary Care for Pain, C ommunicating About Pain Print Language: Greenlandic Stand Alone Forms: Mireya Award Info., Patient Portal Info Letter, Work/Release Restrictions Discharge Order Discharge Orders: Discharge (Routine); Ordered 12/26/24 Ordered By: Denver Marina Quality Discharge Quality Measures VTE prophylaxis Attestestation MD Attestation I reviewed labs, imaging, EKG, home medications and prior available records. Face to face evaluation was performed by me. I have personally examined the patient and discussed assessment and plan with the IM team. I reviewed the resident note and agree with the plan with exceptions as below. CAD status post PCI HFrEF EF 40 to 45% History of stage IV rectal cancer with pulmonary metastases Chest pain at rest Neuropathic pain Initial troponin is negative Repeat troponin remains negative Continue atorvastatin and Brilinta Continue Coreg and Entresto Outpatient follow-up with cardiology Time spent is 34 minutes. More than 50% of the time was spent on patient education and coordination of care.
--- NOTE | 2024-12-26 11:39 | PC.SS ---
FACE CLEANER conducted bedside contact with the patient conduct initial assessment and to discuss discharge planning.? Patient confirmed demographic information.? Patient resides at home with spouse, Christina Mccall .? Patient is retired.? Patient does not utilize any form of DME to assist with ambulation.? Patient does not utilize home oxygen.? Patient describes the ability to complete ADL?s independently.? Patient identified spouse, Christina Mccall; as medical surrogate decision maker.? Patient?s PCP is Amparo No.? Patient does not participate with dialysis.? Patient?s switch foreman is Grisel Jones.? Patient?s oncologist is Dr. Nowak.? Patient reports treatment plan is via chemotherapy pills. Plan is for the patient to return home at the time of discharge.? Family will provide transportation on behalf of the patient.? No further discharge needs identified by the patient.? No further intervention required at this time, elementary school social worker will be available to address any further concerns.? Next of Kin: Christina Mccall D/C Plan: Home
[2024-12-26 12:00] VITALS: BP 116/76; PULSE 72; PULSE 86; RESP 15; TEMP 36.5; O2SAT 97
== END 2024-12-26 14:55 | disposition home or self-care (01) ==
LOC: SERX 17:23 → SERHOLD 19:15 → S3NX 20:14
PROVIDERS: Student in an Organized Health Care Education/Training Program; Admitting Provider Student in an Organized Health Care Education/Training Program; Emergency Provider Family Medicine; PCP Nurse Practitioner; Visit Provider Student in an Organized Health Care Education/Training Program
DX: R07.89 Other chest pain (principal); I25.2 Old myocardial infarction; Z95.810 Presence of automatic (implantable) cardiac defibrillator; I50.22 Chronic systolic (congestive) heart failure; C78.7 Secondary malignant neoplasm of liver and intrahepatic bile duct; C78.00 Secondary malignant neoplasm of unspecified lung; Z85.048 Personal history of other malignant neoplasm of rectum, rectosigmoid junction, and anus; Z66 Do not resuscitate; I25.10 Atherosclerotic heart disease of native coronary artery without angina pectoris; M54.30 Sciatica, unspecified side; Z92.21 Personal history of antineoplastic chemotherapy
CPT/HCPCS: 36415; 71045; 80053; 80061; 80307; 81001; 83735; 84100; 84443; 84484; 85025; 85610; 85730; 93005; 96365; 96366; 96372; 96375; 96376; 99283; G0378; J1644; J2270; J3475; A9270

== ENCOUNTER → 2025-01-01 | Outpatient (CLI) | payer MEDICARE, MEDICAID, SELFPAY ==
[2025-01-01 10:44] LABS: Collection Type, Urine Clean Catch
[2025-01-01 10:58] LABS: Basophils # (Auto) 0.0 Thou/mm3 (0.0-0.2); Basophils % (Auto) 1 % (0-2.5); Eosinophils # (Auto) 0.2 Thou/mm3 (0.0-0.5); Eosinophils % (Auto) 3 % (0-10); Hematocrit 39.6 % (41.0-53.0); Hemoglobin 13.7 g/dL (13.5-16.0); Immature Granulocytes Auto 0.01 Thou/mm3 (0.00-0.00); Lymphocytes # (Auto) 0.9 Thou/mm3 (1.0-4.8); Lymphocytes % (Auto) 16 % (10-50); Mean Corpuscular HGB Conc 34.6 g/dl (31.0-37.0); Mean Corpuscular Hemoglobin 32.3 pg (25.0-35.0); Mean Corpuscular Volume 93 fL (80-100); Monocytes # (Auto) 0.5 Thou/mm3 (0.0-0.8); Monocytes % (Auto) 10 % (0-12); Neutrophils # (Auto) 4.0 Thou/mm3 (1.8-7.7); Neutrophils % (Auto) 71 % (37-80); Nucleated Red Blood Cell # 0.00 Thou/mm3 (0.00-0.00); Nucleated Red Blood Cell % 0 /100 WBC (0); Platelet Count 188 Thou/mm3 (140-440); RDW Standard Deviation 44.3 fL (35.1-43.9); Red Blood Count 4.24 Miln/mm3 (4.50-5.90); White Blood Count 5.6 Thou/mm3 (3.8-10.6)
[2025-01-01 11:03] LABS: Bilirubin,Urine Negative (Negative); Blood,Urine Negative (Negative); Clarity,Urine Clear (Clear/Hazy); Color,Urine Lt-Yellow (Lt Yel-Yel); Glucose, Urine Negative (Negative); Ketones,Urine Negative (Negative); Leukocyte Esterase,Urine Negative (Negative); Nitrite,Urine Negative (Negative); PH,Urine 6.0 (5.0-7.0); Protein,Urine Negative (Neg - Trace); RBC,Urine < 1 /hpf (0-3); Specific Gravity,Urine 1.009 (1.001-1.035); Squamous Epithelial Cell,Urine < 1 /hpf (0-5); Urobilinogen,Urine Negative mg/dL (0.0-1.0); WBC,Urine 1 /hpf (0-5)
[2025-01-01 11:12] LABS: Alanine Aminotransferase 18 U/L (10-49); Albumin, Serum 4.1 gm/dL (3.4-4.8); Albumin/Globulin Ratio 2.0 (1.2-2.2); Alkaline Phosphatase 139 U/L (46-116); Anion Gap 8 (7-16); Aspartate Amino Transferase 23 U/L (0-34); BUN/Creatinine Ratio 13 Ratio (12-20); Bilirubin,Total 0.6 mg/dL (0.3-1.2); Blood Urea Nitrogen 13 mg/dL (9-23); Calcium 9.2 mg/dL (8.3-10.6); Calcium (Corrected) 9.2 mg/dL (8.5-10.1); Carbon Dioxide 23.6 mMol/L (20.0-31.0); Chloride 109 mMol/L (98-107); Creatinine (Component) 1.0 mg/dL (0.6-1.3); Globulin 2.1 gm/dL (2.3-3.5); Glucose 102 mg/dL (74-106); Osmolality,Calculated 281 (275-295); Potassium 4.4 mMol/L (3.4-5.1); Sodium 141 mMol/L (136-145); Total Protein 6.2 gm/dL (5.7-8.2); eGFR > 60 See Note
[2025-01-01 11:33] LABS: Carcinoembryonic Antigen 143.5 ng/mL (0.0-5.0)
== END | disposition home or self-care (01) ==
PROVIDERS: PCP Internal Medicine Hematology & Oncology; Referring Provider Internal Medicine Hematology & Oncology; Visit Provider Internal Medicine Hematology & Oncology
DX: C20 Malignant neoplasm of rectum (principal)
CPT/HCPCS: 36415; 80053; 81001; 82378; 85025

== ENCOUNTER 2025-01-02 10:34 | Outpatient (RCR) | payer MEDICARE, MEDICAID, SELFPAY ==
[2024-12-18 15:06] LABS: Collection Type, Urine Voided
[2024-12-18 15:13] LABS: Basophils # (Auto) 0.0 Thou/mm3 (0.0-0.2); Basophils % (Auto) 0 % (0-2.5); Eosinophils # (Auto) 0.2 Thou/mm3 (0.0-0.5); Eosinophils % (Auto) 4 % (0-10); Hematocrit 41.5 % (41.0-53.0); Hemoglobin 14.3 g/dL (13.5-16.0); Immature Granulocytes Auto 0.01 Thou/mm3 (0.00-0.00); Lymphocytes # (Auto) 0.9 Thou/mm3 (1.0-4.8); Lymphocytes % (Auto) 18 % (10-50); Mean Corpuscular HGB Conc 34.5 g/dl (31.0-37.0); Mean Corpuscular Hemoglobin 32.6 pg (25.0-35.0); Mean Corpuscular Volume 95 fL (80-100); Monocytes # (Auto) 0.5 Thou/mm3 (0.0-0.8); Monocytes % (Auto) 10 % (0-12); Neutrophils # (Auto) 3.5 Thou/mm3 (1.8-7.7); Neutrophils % (Auto) 68 % (37-80); Nucleated Red Blood Cell # 0.00 Thou/mm3 (0.00-0.00); Nucleated Red Blood Cell % 0 /100 WBC (0); Platelet Count 187 Thou/mm3 (140-440); RDW Standard Deviation 47.9 fL (35.1-43.9); Red Blood Count 4.39 Miln/mm3 (4.50-5.90); White Blood Count 5.2 Thou/mm3 (3.8-10.6)
[2024-12-18 15:16] LABS: Bilirubin,Urine Negative (Negative); Blood,Urine Negative (Negative); Clarity,Urine Clear (Clear/Hazy); Color,Urine Colorless (Lt Yel-Yel); Glucose, Urine Negative (Negative); Ketones,Urine Negative (Negative); Leukocyte Esterase,Urine Negative (Negative); Nitrite,Urine Negative (Negative); PH,Urine 6.0 (5.0-7.0); Protein,Urine Negative (Neg - Trace); RBC,Urine < 1 /hpf (0-3); Specific Gravity,Urine 1.005 (1.001-1.035); Squamous Epithelial Cell,Urine < 1 /hpf (0-5); Urobilinogen,Urine Negative mg/dL (0.0-1.0); WBC,Urine < 1 /hpf (0-5)
[2024-12-18 15:34] LABS: Carcinoembryonic Antigen 93.5 ng/mL (0.0-5.0)
[2024-12-18 15:37] LABS: Alanine Aminotransferase 21 U/L (10-49); Albumin, Serum 4.4 gm/dL (3.4-4.8); Albumin/Globulin Ratio 2.1 (1.2-2.2); Alkaline Phosphatase 132 U/L (46-116); Anion Gap 10 (7-16); Aspartate Amino Transferase 26 U/L (0-34); BUN/Creatinine Ratio 7 Ratio (12-20); Bilirubin,Total 1.3 mg/dL (0.3-1.2); Blood Urea Nitrogen 8 mg/dL (9-23); Calcium 8.9 mg/dL (8.3-10.6); Calcium (Corrected) 8.9 mg/dL (8.5-10.1); Carbon Dioxide 24.5 mMol/L (20.0-31.0); Chloride 105 mMol/L (98-107); Creatinine (Component) 1.2 mg/dL (0.6-1.3); Globulin 2.1 gm/dL (2.3-3.5); Glucose 166 mg/dL (74-106); Osmolality,Calculated 279 (275-295); Potassium 3.9 mMol/L (3.4-5.1); Sodium 139 mMol/L (136-145); Total Protein 6.5 gm/dL (5.7-8.2); eGFR > 60 See Note
== END 2025-01-12 23:59 | disposition home or self-care (01) ==
LOC: SCTC 10:34
PROVIDERS: PCP Nurse Practitioner; Referring Provider Internal Medicine Hematology & Oncology; Visit Provider Radiology Therapeutic Radiology
DX: C20 Malignant neoplasm of rectum (principal); C78.7 Secondary malignant neoplasm of liver and intrahepatic bile duct; C78.02 Secondary malignant neoplasm of left lung; C78.01 Secondary malignant neoplasm of right lung; M25.552 Pain in left hip
CPT/HCPCS: 36415; 36591; 80053; 81001; 82378; 85025; 99213; A4216; J1642; J3490; Q5126; G0463

== ENCOUNTER → 2025-01-13 | Outpatient (CLI) | payer MEDICARE, MEDICAID, SELFPAY ==
[2025-01-13 09:51] LABS: Basophils # (Auto) 0.0 Thou/mm3 (0.0-0.2); Basophils % (Auto) 1 % (0-2.5); Eosinophils # (Auto) 0.3 Thou/mm3 (0.0-0.5); Eosinophils % (Auto) 5 % (0-10); Hematocrit 42.8 % (41.0-53.0); Hemoglobin 14.4 g/dL (13.5-16.0); Immature Granulocytes Auto 0.01 Thou/mm3 (0.00-0.00); Lymphocytes # (Auto) 0.8 Thou/mm3 (1.0-4.8); Lymphocytes % (Auto) 15 % (10-50); Mean Corpuscular HGB Conc 33.6 g/dl (31.0-37.0); Mean Corpuscular Hemoglobin 32.4 pg (25.0-35.0); Mean Corpuscular Volume 96 fL (80-100); Monocytes # (Auto) 0.4 Thou/mm3 (0.0-0.8); Monocytes % (Auto) 9 % (0-12); Neutrophils # (Auto) 3.6 Thou/mm3 (1.8-7.7); Neutrophils % (Auto) 71 % (37-80); Nucleated Red Blood Cell # 0.00 Thou/mm3 (0.00-0.00); Nucleated Red Blood Cell % 0 /100 WBC (0); Platelet Count 223 Thou/mm3 (140-440); RDW Standard Deviation 47.8 fL (35.1-43.9); Red Blood Count 4.45 Miln/mm3 (4.50-5.90); White Blood Count 5.1 Thou/mm3 (3.8-10.6)
[2025-01-13 10:13] LABS: B-Type Natriuretic Peptide 30 pg/mL (0-100)
[2025-01-13 10:15] LABS: Alanine Aminotransferase 26 U/L (10-49); Albumin, Serum 4.5 gm/dL (3.4-4.8); Alkaline Phosphatase 128 U/L (46-116); Anion Gap 9 (7-16); Aspartate Amino Transferase 29 U/L (0-34); BUN/Creatinine Ratio 13 Ratio (12-20); Bilirubin,Direct 0.5 mg/dL (0.0-0.3); Bilirubin,Total 1.1 mg/dL (0.3-1.2); Blood Urea Nitrogen 13 mg/dL (9-23); Calcium 9.2 mg/dL (8.3-10.6); Carbon Dioxide 25.7 mMol/L (20.0-31.0); Cardiac Risk Estimate 2.7 RATIO (4.0-6.7); Chloride 106 mMol/L (98-107); Cholesterol 88 mg/dL (132-200); Creatinine (Component) 1.0 mg/dL (0.6-1.3); Glucose 109 mg/dL (74-106); HDL Cholesterol 33 mg/dL (40-60); LDL Cholesterol,Calculated 42 mg/dL (0-130); Osmolality,Calculated 282 (275-295); Phosphorous 2.6 mg/dL (2.4-5.1); Potassium 4.1 mMol/L (3.4-5.1); Sodium 141 mMol/L (136-145); Total Protein 7.2 gm/dL (5.7-8.2); Triglycerides 67 mg/dL (30-150); eGFR > 60 See Note
== END | disposition home or self-care (01) ==
LOC: COPL 09:14
PROVIDERS: PCP Family Medicine; Referring Provider Specialist; Visit Provider Specialist
DX: E78.00 Pure hypercholesterolemia, unspecified (principal); I11.9 Hypertensive heart disease without heart failure; I50.23 Acute on chronic systolic (congestive) heart failure
CPT/HCPCS: 36415; 80048; 80061; 80076; 83880; 84100; 85025

== ENCOUNTER → 2025-01-21 | Outpatient (CLI) | payer MEDICARE, MEDICAID, SELFPAY ==
[2025-01-21 08:37] LABS: Collection Type, Urine Clean Catch
[2025-01-21 09:41] LABS: Basophils # (Auto) 0.1 Thou/mm3 (0.0-0.2); Basophils % (Auto) 1 % (0-2.5); Eosinophils # (Auto) 0.2 Thou/mm3 (0.0-0.5); Eosinophils % (Auto) 3 % (0-10); Hematocrit 40.1 % (41.0-53.0); Hemoglobin 13.5 g/dL (13.5-16.0); Immature Granulocytes Auto 0.02 Thou/mm3 (0.00-0.00); Lymphocytes # (Auto) 0.9 Thou/mm3 (1.0-4.8); Lymphocytes % (Auto) 17 % (10-50); Mean Corpuscular HGB Conc 33.7 g/dl (31.0-37.0); Mean Corpuscular Hemoglobin 32.8 pg (25.0-35.0); Mean Corpuscular Volume 97 fL (80-100); Monocytes # (Auto) 0.6 Thou/mm3 (0.0-0.8); Monocytes % (Auto) 11 % (0-12); Neutrophils # (Auto) 3.7 Thou/mm3 (1.8-7.7); Neutrophils % (Auto) 68 % (37-80); Nucleated Red Blood Cell # 0.00 Thou/mm3 (0.00-0.00); Nucleated Red Blood Cell % 0 /100 WBC (0); Platelet Count 189 Thou/mm3 (140-440); RDW Standard Deviation 48.4 fL (35.1-43.9); Red Blood Count 4.12 Miln/mm3 (4.50-5.90); White Blood Count 5.5 Thou/mm3 (3.8-10.6)
[2025-01-21 09:46] LABS: Bilirubin,Urine Negative (Negative); Blood,Urine Negative (Negative); Clarity,Urine Clear (Clear/Hazy); Color,Urine Lt-Yellow (Lt Yel-Yel); Glucose, Urine Negative (Negative); Ketones,Urine Negative (Negative); Leukocyte Esterase,Urine Negative (Negative); Nitrite,Urine Negative (Negative); PH,Urine 6.0 (5.0-7.0); Protein,Urine Negative (Neg - Trace); RBC,Urine 2 /hpf (0-3); Specific Gravity,Urine 1.012 (1.001-1.035); Squamous Epithelial Cell,Urine < 1 /hpf (0-5); Urobilinogen,Urine Negative mg/dL (0.0-1.0); WBC,Urine < 1 /hpf (0-5)
[2025-01-21 10:13] LABS: Alanine Aminotransferase 13 U/L (10-49); Albumin, Serum 4.2 gm/dL (3.4-4.8); Albumin/Globulin Ratio 1.5 (1.2-2.2); Alkaline Phosphatase 137 U/L (46-116); Anion Gap 8 (7-16); Aspartate Amino Transferase 21 U/L (0-34); BUN/Creatinine Ratio 11 Ratio (12-20); Bilirubin,Total 0.8 mg/dL (0.3-1.2); Blood Urea Nitrogen 12 mg/dL (9-23); Calcium 9.1 mg/dL (8.3-10.6); Calcium (Corrected) 9.1 mg/dL (8.5-10.1); Carbon Dioxide 27.3 mMol/L (20.0-31.0); Chloride 103 mMol/L (98-107); Creatinine (Component) 1.1 mg/dL (0.6-1.3); Globulin 2.8 gm/dL (2.3-3.5); Glucose 97 mg/dL (74-106); Osmolality,Calculated 275 (275-295); Potassium 4.4 mMol/L (3.4-5.1); Sodium 138 mMol/L (136-145); Total Protein 7.0 gm/dL (5.7-8.2); eGFR > 60 See Note
[2025-01-21 10:32] LABS: Carcinoembryonic Antigen 175.4 ng/mL (0.0-5.0)
== END | disposition home or self-care (01) ==
LOC: SCTO 08:20
PROVIDERS: PCP Family Medicine; Referring Provider Internal Medicine Hematology & Oncology; Visit Provider Internal Medicine Hematology & Oncology
DX: C20 Malignant neoplasm of rectum (principal)
CPT/HCPCS: 36415; 80053; 81001; 82378; 85025

== ENCOUNTER 2025-01-24 21:03 | Emergency (ER) | payer MEDICARE, MEDICAID, SELFPAY ==
[2025-01-24 21:24] VITALS: PULSE 77; O2SAT 95; BMI 29.9
[2025-01-24 21:40] VITALS: BP 129/79; PULSE 75; RESP 18; TEMP 36.4; O2SAT 97
[2025-01-24] MEDS: MORPHINE SULF LIQD 10 MG/5 ML UDC PO (22:16)
--- NOTE | 2025-01-24 22:26 | PD.EDEXREM ---
ED Extremity Problem RME/HPI General Chief complaint: Extremity Problem,Nontraumatic Stated complaint: SCIATIC PAIN Time Seen by Provider: 01/24/25 22:01 Arrival date/time: 01/24/25 21:03 64M with history of HTN, CAD, and colon cancer presents to ED with worsening L sciatica pain. Patient has been taking his blood thinners and denies leg swelling. Patient takes [place] 5/325 at home. Patient would like some NSAIDs, but knows he can't. Will Limitations: no limitations Related Data Home Medications ?Medication ?Instructions ?Recorded ?Confirmed gabapentin 100 mg capsule 100 mg PO TID 01/03/18 12/25/24 atorvastatin 80 mg tablet 80 mg PO QDAY 12/25/24 12/25/24 carvedilol 6.25 mg tablet 6.25 mg PO Q12H 12/25/24 12/25/24 ezetimibe 10 mg tablet 10 mg PO QDAY 12/25/24 12/25/24 sacubitril 49 mg-valsartan 51 mg 1 tab PO BID 12/25/24 12/25/24 tablet (Entresto) ticagrelor 60 mg tablet (Brilinta) 60 mg PO BID 12/25/24 12/25/24 Allergies Allergy/AdvReac Type Severity Reaction Status Date / Time No Known Allergies Allergy Verified 01/24/25 21:24 Review of Systems Review of Systems Systems Reviewed: All systems reviewed, normal except as documented Musculoskeletal Musculoskeletal: Reports as per HPI and Reports radiating pain into limb Past Medical History Past Medical History NEUROLOGIC: Negative Neurological Disorders or Seizures CARDIAC: Positive Cardiac Disorders, Myocardial Infarction and Hypertension; Negative Congestive Heart Failure RESPIRATORY: Positive Pneumonia; Negative Chronic Obstructive Pulmonary Disease (COPD) GASTROINTESTINAL: Positive Gastrointestinal Disorders, Colorectal Cancer and Gastroesophageal Reflux Disease GENITOURINARY: Negative Genitourinary Disorders or Renal Disease MUSCULOSKELETAL: Positive Musculoskeletal Disorders, Degenerative Disk Disease and Fractures ENDOCRINE: Negative Endocrine Disorders, Diabetes Mellitus Type 1 or Diabetes Mellitus Type 2 HEMATOLOGIC: Negative Blood Disorders OTHER HISTORY: Positive Hospitalization, Chemotherapy, Radiation Therapy, Chicken Pox, Cancer, Colorectal Cancer and Lung Cancer; Negative Autoimmune Disease, Shingles, Falls, Blood Transfusions, Blood Transfusion Reaction or Anesthesia Reactions Family History FAMILY HISTORY: Positive Family Respiratory Disorders, Family Cardiac Disorders, Family Gastrointestinal Problems, Family Cancer and Family Surgery; Negative Family Psychiatric Problems or Family Anesthesia Reaction Surgical History SURGICAL: Positive Cardiac Surgery, Coronary Stent, Cardiac Catheterization, Pacemaker and Bowel Surgery; Negative Abdominal Surgery Social History SMOKING STATUS: Former smoker ED Exam General Limitations: Present no limitations General appearance: Present alert and in no apparent distress Head Head exam: Present atraumatic Neck Neck exam: Present normal inspection, full ROM and trachea midline Chest Chest inspection: Present normal inspection and symmetric chest wall rise Neurological Exam Neurological exam: Present alert and oriented X3 Psychiatric Psychiatric exam: Present normal affect and normal mood Skin Skin exam: Present warm, dry, intact and normal color Course Quality Measures none Orders Category Date Time Status Morphine Oral LIQUID Med 01/24/25 22:04 Discontinued 10 mg PO X1 ONE dexAMETHasone INJ [Decadron Inj] Med 01/24/25 22:04 Discontinued 10 mg PO X1 ONE Vital Signs Vital signs: Vital Signs Temperature 97.6 F 01/24/25 21:40 Pulse Rate 75 01/24/25 21:40 Respiratory Rate 18 01/24/25 21:40 Blood Pressure 129/79 01/24/25 21:40 Pulse Oximetry (%) 97 01/24/25 21:40 Oxygen Delivery Method Room Air 01/24/25 21:40 O2 at 97% on RA and WNLs Extremity Problem MDM Narrative MDM Narrative:: 64M with history of HTN, CAD, and colon cancer presents to ED with worsening L sciatica pain. Patient has been taking his blood thinners and denies leg swelling. Patient takes [place] 5/325 at home. Physical exam reveals uncomfortable male. Patient is afebrile, calm, and alert. Patient would like some NSAIDs, but knows he can't. Will give a single dose of long-acting steroid. Patient data External records reviewed:: [facility] previous records Clinical information provided by:: patient Social determinants that could affect healthcare access:: none Patient has the following chronic illnesses:: HTN, CAD, and colon cancer How is presenting disease/condition affected by chronic disease/condition?: exacerbated by Evaluation data The following diagnostics were reviewed and interpreted by me:: other (specify) (none) Lab and/or radiology exams considered but not ordered:: not ordered Interpretation Summary: n/a Medications / Prescriptions Medications or Prescriptions considered but not ordered:: ordered Medication administrations:: Medication Administration History Discontinued Medications Dexamethasone Sodium Phosphate (Dexamethasone Sod Phos Inj 10 Mg/Ml Vial) 10 mg PO X1 ONE Stop: 01/24/25 22:05 Last Admin: 01/24/25 22:16 Dose: 10 mg Documented By: BD Comments: given po Morphine Sulfate (Morphine Sulf Liqd 10 Mg/5 Ml Udc) 10 mg PO X1 ONE Stop: 01/24/25 22:05 Last Admin: 01/24/25 22:16 Dose: 10 mg Documented By: NOE above Consultations Consultation(s) initiated? (list below): No Diagnosis Extremity Problem Differential Diagnosis: herpes zoster, gout, cellulitis, superficial thrombophlebitis, deep venous thrombosis of upper extremity, lower extremity edema, deep vein thrombosis of lower extremity and other (sciatica) Most likely diagnosis given after review of the tests above:: sciatica Admission Indicated Admission indicated?: not indicated Admission Request Was there a request for admission?: No Disposition Plan Disposition Plan: Discharge Discharge Attestation Discharge Attestation: The patient and all family members were given an opportunity to ask questions and understood the discharge instructions. Discharge instructions specifically effects, indications for sooner follow up or return to the emergency department, and the expected course of current diagnosis. Patient condition: Stable Discharge Plan Plan Patient Disposition: HOME (Self Care) Discharge Disposition comment: Stable Prescriptions/Referrals Prescriptions/Med Rec: No Action gabapentin 100 mg Capsule 100 mg PO TID ticagrelor [Brilinta] 60 mg tablet 60 mg PO BID carvedilol 6.25 mg tablet 6.25 mg PO Q12H Patient Comments: TAKE 1 TABLET BY MOUTH TWICE A DAY WITH FOOD FOR 90 DAYS sacubitril-valsartan [Entresto] 49-51 mg tablet 1 tab PO BID atorvastatin 80 mg tablet 80 mg PO QDAY Patient Comments: TAKE 1 TABLET BY MOUTH EVERY DAY ezetimibe 10 mg tablet 10 mg PO QDAY Patient Comments: TAKE 1 TABLET BY MOUTH EVERY DAY Problem List Clinical Impression: Sciatica Patient/Caregiver Discharge Instructions Education Materials: ED Sciatica Additional Instructions: Please follow-up with PCP within 24-48 hours and return immediately if symptoms worsen. If problem persists, recommend outpatient PT and/or MRI follow-up. In the meantime, rest, use ice/heat, and/or compression. Print Language: Azeri Stand Alone Forms: Patient Portal Info Letter THAIS/ABDOUL Supervising Physician THAIS/ABDOUL Supervising Physician: Dr. Dixon
== END 2025-01-24 22:19 | disposition home or self-care (01) ==
LOC: SERX 22:22
PROVIDERS: Emergency Provider Emergency Medicine; PCP Nurse Practitioner
DX: M54.32 Sciatica, left side (principal)
CPT/HCPCS: 99281; J1100; A9270

== ENCOUNTER 2025-01-28 10:59 | Emergency (ER) | payer MEDICARE, MEDICAID, SELFPAY ==
[2025-01-28 11:02] VITALS: BP 122/78; PULSE 62; RESP 19; TEMP 36.5; O2SAT 97; BMI 29.9
--- NOTE | 2025-01-28 11:03 | XR_ITS ---
EXAMINATION: AP chest single view TECHNIQUE: AP portable sitting chest single view Date and time: January 28, 2025, 1128 hours, comparison December 25, 2024 INDICATIONS: Onset chest pain today. FINDINGS: Normal heart size Accentuation basilar bronchovascular markings. No lobar pneumonia or pulmonary edema. Cardiac leads left subclavian Port-A-Cath tip satisfactory position Severe osteopenia IMPRESSION: Basilar bronchitis pattern
--- NOTE | 2025-01-28 11:03 | EKG_ITS ---
[facility] Test Date: 2025-01-28 Pat Name: ARLEN VALDOVINOS Department: Room: - Gender: Male Parts Room Associate: : 1960 Requested By: Vincent Ward Order Number: [id number] Reading MD: Vincent Ward Measurements Intervals [place] Rate: 66 P: 46 IN: 175 QRS: -43 QRSD: 74 T: 54 QT: 343 QTc: 361 Interpretive Statements SINUS RHYTHM LOW QRS VOLTAGE IN PRECORDIAL LEADS [QRS DEFLECTION < 1.0 mV IN CHEST LEADS] INFERIOR MYOCARDIAL INFARCTION , PROBABLY OLD [40+ ms Q WAVE AND/OR ST/T ABNORMALITY IN II/aVF] ANTEROSEPTAL MYOCARDIAL INFARCTION , OF INDETERMINATE AGE [40+ ms Q WAVE IN V1-V4] Compared to ECG 12/25/2024 12:49:39 Left anterior fascicular block no longer present Myocardial infarct finding still present /store/[id number]
--- NOTE | 2025-01-28 11:05 | EDNOTE_ITS ---
<Statement entered by Lisha Augustin MD - 01/28/25 17:44> As co-signing physician, I was present and available for consult prn. I concur with the plan and care as documented by the midlevel provider. ED General RME/HPI General Chief complaint: Chest Pain Stated complaint: CHEST WALL PAIN Time Seen by Provider: 01/28/25 11:03 Arrival date/time: 01/28/25 10:59 CC: Chest pain HPI patient presents to the ER via EMS with onset of chest pain approximately 15 to 20 minutes ago patient does have a cardiac history including a pacemaker. Patient states he was getting out of the tub walked to the living room immediately and onset of left-sided chest pain that is localized part of it is reproducible with palpation other is not. Patient denies fall blunt trauma repetitive motion. The patient also denies any nausea vomiting fever chills shortness of breath or difficulty breathing. Related Data Home Medications ?Medication ?Instructions ?Recorded ?Confirmed gabapentin 100 mg capsule 100 mg PO TID 01/03/1812/25 atorvastatin 80 mg tablet 80 mg PO QDAY 12/25/2412/25 carvedilol 6.25 mg tablet 6.25 mg PO Q12H 12/25/2402/06 ezetimibe 10 mg tablet 10 mg PO QDAY 12/25/2412/25 sacubitril 49 mg-valsartan 51 mg 1 tab PO BID 12/25/24 12/25/24 tablet (Entresto) ticagrelor 60 mg tablet (Brilinta) 60 mg PO BID 12/25/24 Allergies Allergy/AdvReac Type Severity Reaction Status Date / Time No Known Allergies Allergy Verified 01/24/25 21:24 Review of Systems Review of Systems Narrative Review of Systems: GEN: No fever, no chills, no weight loss EYES: No discharge, no visual changes, no pain HEENT: No ear pain, no congestion, no sore throat PULM: No shortness of breath, no cough, no congestion CV: + chest pain, no dyspnea on exertion, no palpitations GI: No nausea, no vomiting, no diarrhea, no pain, no constipation : No frequency, no urgency, no dysuria MUSC/SKEL: No joint pain, no back pain SKIN: No rash PSYCH: No hallucinations, no depression HEME/LYMPH: No easy bleeding or bruising tendencies NEURO: No weakness, no headache Past Medical History Past Medical History NEUROLOGIC: Negative Neurological Disorders or Seizures CARDIAC: Positive Cardiac Disorders, Myocardial Infarction and Hypertension; Negative Congestive Heart Failure RESPIRATORY: Positive Pneumonia; Negative Chronic Obstructive Pulmonary Disease (COPD) GASTROINTESTINAL: Positive Gastrointestinal Disorders, Colorectal Cancer and Gastroesophageal Reflux Disease GENITOURINARY: Negative Genitourinary Disorders or Renal Disease MUSCULOSKELETAL: Positive Musculoskeletal Disorders, Degenerative Disk Disease and Fractures ENDOCRINE: Negative Endocrine Disorders, Diabetes Mellitus Type 1 or Diabetes Mellitus Type 2 HEMATOLOGIC: Negative Blood Disorders OTHER HISTORY: Positive Hospitalization, Chemotherapy, Radiation Therapy, Chicken Pox, Cancer, Colorectal Cancer and Lung Cancer; Negative Autoimmune Disease, Shingles, Falls, Blood Transfusions, Blood Transfusion Reaction or Anesthesia Reactions Family History FAMILY HISTORY: Positive Family Respiratory Disorders, Family Cardiac Disorders, Family Gastrointestinal Problems, Family Cancer and Family Surgery; Negative Family Psychiatric Problems or Family Anesthesia Reaction Surgical History SURGICAL: Positive Cardiac Surgery, Coronary Stent, Cardiac Catheterization, Pacemaker and Bowel Surgery; Negative Abdominal Surgery Social History SMOKING STATUS: Former smoker ED Exam Narrative Physical exam: [General: Appears in mild discomfort but not in any acute distress Head normocephalic HEENT: Eyes pupils are PERRLA EOMs are intact mouth pink moist membranes uvula is midline swallow symmetrical phonation is normal. Within acceptable limits Neck is supple nontender Chest equal chest rise, left anterior chest just approximately 3 cm below the nipple there is tenderness with palpation however the patient states all other left anterior chest pain not reproducible with palpation. Left anterior chest pacer pouch clean dry intact with a clean surgical scar. Respiratory: Clear to auscultation no wheezes crackles or rubs CV: Rate rhythm is regular no murmurs rubs or clicks Abdomen is soft nontender no masses positive bowel sounds all 4 quadrants Back: No CVA tenderness no spinous process tenderness from cervical spine thoracic and lumbar spine Skin: Intact no petechiae rash induration ulceration or crepitus Extremities: Moving all extremity against resistance cap refill less than 2 seconds neurosensory intact. No lower extremity edema. Neuro: Awake alert oriented x3 Glascow coma 15 no focal deficits] Course Course Course Narrative: CC: At 1212 the patient was also complaining of his chronic left sciatic pain. Patient states he took a [place] at 5 AM but has since worn off will give him another [place] to help relieve this pain. Quality Measures none Orders Category Date Time Status EKG (ED ONLY) *Do not use* NOW Care 01/28/25 11:03 Completed EKG (ED Only) Stat Exams 01/28/25 11:03 Draft XR chest 1V Stat Exams 01/28/25 11:03 Completed B-Type Natriuretic Peptide Stat Lab 01/28/25 11:23 Completed CBC Stat Lab 01/28/25 11:23 Completed Comprehensive Metabolic Panel Stat Lab 01/28/25 11:23 Completed Drug Screen,Urine Stat Lab 01/28/25 13:32 Completed LDH (Lactate Dehydrogenase) Stat Lab 01/28/25 11:23 Completed Magnesium Stat Lab 01/28/25 11:23 Completed Partial Thromboplastin Time Stat Lab 01/28/25 11:23 Completed Prothrombin Time with INR Stat Lab 01/28/25 11:23 Completed Troponin I Stat Lab 01/28/25 11:23 Completed Troponin I Stat Lab 01/28/25 15:13 Completed Urinalysis, C/S if Indicated Stat Lab 01/28/25 13:32 Completed HYDROcodone/APAP 10/325 [Attica 10/325] Med 01/28/25 12:11 Discontinued 1 tab PO X1 ONE Vital Signs Vital signs: Vital Signs Temperature 97.7 F 01/28/25 11:02 Pulse Rate 62 01/28/25 11:02 Respiratory Rate 19 01/28/25 11:02 Blood Pressure 122/78 01/28/25 11:02 Pulse Oximetry (%) 97 01/28/25 11:02 Oxygen Delivery Method Room Air 01/28/25 11:02 Discharge Plan Plan Patient Disposition: HOME (Self Care) Patient condition on transfer: Stable Prescriptions/Referrals Prescriptions/Med Rec: No Action gabapentin 100 mg Capsule 100 mg PO TID ticagrelor [Brilinta] 60 mg tablet 60 mg PO BID carvedilol 6.25 mg tablet 6.25 mg PO Q12H Patient Comments: TAKE 1 TABLET BY MOUTH TWICE A DAY WITH FOOD FOR 90 DAYS sacubitril-valsartan [Entresto] 49-51 mg tablet 1 tab PO BID atorvastatin 80 mg tablet 80 mg PO QDAY Patient Comments: TAKE 1 TABLET BY MOUTH EVERY DAY ezetimibe 10 mg tablet 10 mg PO QDAY Patient Comments: TAKE 1 TABLET BY MOUTH EVERY DAY Referrals: Rosa Isela Randolph FNP [Primary Care Provider] - In 1 week Problem List Clinical Impression: Chest pain, Sciatica Patient/Caregiver Discharge Instructions Education Materials: ED Chest Pain, Uncertain Cause, ED Sciatica Additional Instructions: Continue to take your medications at home for your psychiatric if there is her chest pain worsens follow-up with your primary care doctor or return the emergency room for reevaluation. Print Language: Amharic Stand Alone Forms: Mireya Award Info., Work/School Release, Patient Portal Info Letter THAIS/ABDOUL Supervising Physician THAIS/ABDOUL Supervising Physician: Vincent Gallagher ENP [facility] Clinical Information Provided by: patient and EMS Medical Records reviewed [facility] and EMS Meds/Rx considered, not ordered None Chronic Illness/Social Conditions which may negatively complicate care or outcome(s)-explain: CHF/CAD/Cardiac illness Explain: Rectal cancer EKG Interpretation EKG #1: EKG Interpretation: EKG performed at 1123 ventricular rate 66 NC interval 175 QRS of 74 QTc of 357 this is sinus rhythm. When compared to an old EKG of December 2024 there are no significant changes. Labs Labs: interpreted by [facility] Lab(s) Interpretation(s): CBC shows no acute leukocytosis mild anemia with a hemoglobin of 13.3 and hematocrit of 39.4. No thrombocytopenia CMP shows no significant electrolyte imbalances renal impairment transaminitis or T. bili elevation. Troponin is within acceptable limits BNP is 81. Delta troponin is negative. Imaging Imaging interpretation: interpreted by [facility] Interpretation(s): Chest x-ray is read as a bronchial pattern however the patient has no respiratory symptoms. Medication Administration(s) Medication Administration History Discontinued Medications Hydrocodone Bitart/Acetaminophen (Hydrocodone/Apap 10/325 Tab) 1 tab PO X1 ONE Stop: 01/28/25 12:12 Last Admin: 01/28/25 13:27 Dose: 1 tab Documented By: ED
[2025-01-28 11:29] VITALS: PULSE 74; RESP 16; O2SAT 98; BMI 29.9
[2025-01-28 11:35] LABS: Basophils # (Auto) 0.0 Thou/mm3 (0.0-0.2); Basophils % (Auto) 0 % (0-2.5); Eosinophils # (Auto) 0.2 Thou/mm3 (0.0-0.5); Eosinophils % (Auto) 4 % (0-10); Hematocrit 39.4 % (41.0-53.0); Hemoglobin 13.3 g/dL (13.5-16.0); Immature Granulocytes Auto 0.01 Thou/mm3 (0.00-0.00); Lymphocytes # (Auto) 0.9 Thou/mm3 (1.0-4.8); Lymphocytes % (Auto) 17 % (10-50); Mean Corpuscular HGB Conc 33.8 g/dl (31.0-37.0); Mean Corpuscular Hemoglobin 32.1 pg (25.0-35.0); Mean Corpuscular Volume 95 fL (80-100); Monocytes # (Auto) 0.7 Thou/mm3 (0.0-0.8); Monocytes % (Auto) 12 % (0-12); Neutrophils # (Auto) 3.6 Thou/mm3 (1.8-7.7); Neutrophils % (Auto) 67 % (37-80); Nucleated Red Blood Cell # 0.00 Thou/mm3 (0.00-0.00); Nucleated Red Blood Cell % 0 /100 WBC (0); Platelet Count 144 Thou/mm3 (140-440); RDW Standard Deviation 47.1 fL (35.1-43.9); Red Blood Count 4.14 Miln/mm3 (4.50-5.90); White Blood Count 5.4 Thou/mm3 (3.8-10.6)
[2025-01-28 12:05] LABS: B-Type Natriuretic Peptide 81 pg/mL (0-100)
[2025-01-28 12:06] LABS: Alanine Aminotransferase 21 U/L (10-49); Albumin, Serum 4.4 gm/dL (3.4-4.8); Albumin/Globulin Ratio 2.0 (1.2-2.2); Alkaline Phosphatase 140 U/L (46-116); Anion Gap 6 (7-16); Aspartate Amino Transferase 19 U/L (0-34); BUN/Creatinine Ratio 13 Ratio (12-20); Bilirubin,Total 0.8 mg/dL (0.3-1.2); Blood Urea Nitrogen 13 mg/dL (9-23); Calcium 8.9 mg/dL (8.3-10.6); Calcium (Corrected) 8.9 mg/dL (8.5-10.1); Carbon Dioxide 29.3 mMol/L (20.0-31.0); Chloride 106 mMol/L (98-107); Creatinine (Component) 1.0 mg/dL (0.6-1.3); Estimated Creatinine Clearance 77.4 mL/min (>60); Globulin 2.2 gm/dL (2.3-3.5); Glucose 87 mg/dL (74-106); LDH (Lactate Dehydrogenase) 227 U/L (120-246); Magnesium 1.9 mg/dL (1.6-2.6); Osmolality,Calculated 280 (275-295); Potassium 4.5 mMol/L (3.4-5.1); Sodium 141 mMol/L (136-145); Total Protein 6.6 gm/dL (5.7-8.2); Troponin I < 0.020 ng/mL (0.0-0.045); eGFR > 60 See Note
[2025-01-28 12:33] VITALS: BP 143/79; PULSE 73; RESP 18; TEMP 37.1; O2SAT 97
--- NOTE | 2025-01-28 13:35 | PC.NURSE ---
Pt. here from home to room 7, pt.'s is bedside, pt. states he has no chest pain at this time, pt. states pain is to left hip area pt. states it's his sciatica, pt. has a pacemaker to right upper chest, pt. has pitting edema +2 to right lower leg/foot, pt. states he thinks left lower leg is swollen, no pitting edema to left lower leg at this time. Pt. 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 Pt. states he will show his home appliance installer his right lower leg. No s/s of distress noted at this time.
[2025-01-28 13:36] LABS: INR 1.0 (0.9-1.3); Partial Thromboplastin Time 29.3 Seconds (22.0-36.0); Prothrombin Time 10.6 Seconds (9.0-12.2)
[2025-01-28 13:38] LABS: Collection Type, Urine Clean Catch; Squamous Epithelial Cell,Urine 0 /hpf (0-5)
[2025-01-28 13:45] LABS: Bilirubin,Urine Negative (Negative); Blood,Urine Negative (Negative); Clarity,Urine Clear (Clear/Hazy); Color,Urine Colorless (Lt Yel-Yel); Culture Indicated,Urine Not Indicated; Glucose, Urine Negative (Negative); Ketones,Urine Negative (Negative); Leukocyte Esterase,Urine Negative (Negative); Nitrite,Urine Negative (Negative); PH,Urine 6.0 (5.0-7.0); Protein,Urine Negative (Neg - Trace); RBC,Urine 2 /hpf (0-3); Specific Gravity,Urine 1.009 (1.001-1.035); Urobilinogen,Urine Negative mg/dL (0.0-1.0); WBC,Urine < 1 /hpf (0-5)
[2025-01-28 14:18] VITALS: BP 106/74; PULSE 63; RESP 20; TEMP 37; O2SAT 97
[2025-01-28 14:35] LABS: Amphetamine/Methamp Scrn,U Negative (Negative); Barbiturate Screen,Urine Negative (Negative); Benzodiazepines Screen,Urine Negative (Negative); Benzoylecgonine Screen, Ur Negative (Negative); Fentanyl Screen,Urine Negative (Negative); Opiate Screen,Urine Positive (Negative); THC Screen,Urine Negative (Negative)
[2025-01-28 15:56] LABS: Troponin I < 0.020 ng/mL (0.0-0.045)
[2025-01-28 16:39] VITALS: BP 113/62; PULSE 67; RESP 16; TEMP 37; O2SAT 97
== END 2025-01-28 16:30 | disposition home or self-care (01) ==
PROVIDERS: Registered Nurse General Practice; Emergency Provider Emergency Medicine; PCP Nurse Practitioner
DX: R07.89 Other chest pain (principal); M54.32 Sciatica, left side; R94.31 Abnormal electrocardiogram [ECG] [EKG]
CPT/HCPCS: 36415; 71045; 80053; 80307; 81001; 83615; 83735; 83880; 84484; 85025; 85610; 85730; 93005; 99283; A9270